=== PATIENT | female | born 1950 | race Caucasian/White ===

== ENCOUNTER 2018-12-15 15:00 | Inpatient (IN) | payer MEDICARE, MEDICAID ==
[~2018-12-15] VITALS: Ht 162.6 cm; Wt 81.6 kg
[~2018-12-15 15:00] MED LIST: ADDERALL PO; ADDERALL XR 3030 MG PO; AMBIEN 10 MG TA10 MG PO; AMBIEN CR12.5 MG PO; AMBIEN PO; ARTHROTEC 50 E1 EACH PO; ASPIRIN PO; ASPIRIN325 PO; ATIVAN1 MG PO; AVANDAMET 2 MG1 EAC1 PO; BENADRYL25 MG PO; BUPROPION XL150 MG PO; CALCIUM; CALCIUM +D & M1 EACH PO; COLACE100 MG PO; CYMBALTA PO; CYMBALTA60 MG PO; DIABETA 5MG TABL5 MG PO; DIABETA PO; DIPHENHYDRAMINE25 M3 PO; FOLIC ACID PO; FOLIC ACID0.8 MG PO; GLUCOPHAGE500 MG PO; HYDROCODON-ACE1 EAC4 PO; HYDROCODONE-AP1 EAC1 PO; HYDROCODONE-AP1 EAC6 PO; INSULIN SYRING; LANTUS100 UNIT/M SUBQ; LIDODERM 5%1 PATC1 TRANSDERM; LISINOPRIL10 MG PO; LUTEIN20 MG PO; MAGNESIUM-VIT1 EACH PO; MEDROLDOSEPACK PO; MIRALAX17 GM PO; MULTIVITAMINS PO; NORCO 5-325 TA1 EACH PO; NORVASC10 MG PO; NOVOLOG100 UNIT/1 SUBQ; OMEPRAZOLE PO; OXYCODONE HCL 55 MG PO; PRILOSEC 20 MG20 MG PO; PRINIVIL20 MG PO; PROZAC; VITAMIN B-12500 MCG PO; VITAMIN B12 PO; VITAMIN D1000 UNI1 PO; WELLBUTRIN; WELLBUTRIN SR150 MG PO; XARELTO10 MG PO; ZOCOR 20 MG TAB20 M1 PO
[2018-12-15 15:01] VITALS: BP 165/78
[2018-12-15] MEDS ORDERED: JANUVIA100 MG PO (15:09)
--- NOTE | 2018-12-15 15:13 | NUR ---
PT REPORTS THAT SHE DOES NOT WANT TO BE INTUBATED, NOR DOES SHE WANT TO BE RESUSCITATED IF IT COMES TO THAT DURING HER STAY.
--- NOTE | 2018-12-15 15:29 | NUR ---
RADIOLOGY AT BEDSIDE TAKING CHEST XRAY AT 1525. ELSA, FROM INFUSION IN ROOM AT THIS TIME ATTEMPTING TO START IV ON PT.
[2018-12-15 15:31] LABS: HEMATOCRIT 37.4 % (37.0-47.0); HEMOGLOBIN 12.6 gm/dL (12.0-15.0); MCH 30.6 pg (26.0-34.0); MCHC 33.7 g/dL (28.0-37.0); MCV 90.8 fL (80.0-100.0); MPV 12.8 fl. (7.2-11.1); NUCLEATED RBCS 0 /100WBC; PLATELET COUNT* 167 thou/uL (150-400); RBC 4.12 mil/uL (4.20-5.00); RDW-CV 13.5 % (10.5-14.5); WBC 14.1 thou/uL (4.0-11.0)
[2018-12-15 15:48] LABS: ANION GAP 11 mmol/L (7-16); BUN 33 mg/dL (7-18); CALCIUM 9.1 mg/dL (8.5-10.1); CHLORIDE 102 mmol/L (98-107); CO2 27 mmol/L (21-32); CREATININE 1.6 mg/dL (0.6-1.3); GLUCOSE 279 mg/dL (70-99); POTASSIUM 4.1 mmol/L (3.5-5.1); SODIUM 140 mmol/L (136-145); TROPONIN-I LEVEL <0.06 ng/mL (<0.06)
[2018-12-15 15:50] LABS: ALBUMIN 3.6 g/dL (3.4-5.0); ALKALINE PHOSPHATASE 100 U/L (46-116); LIPASE 47 U/L (73-393); MAGNESIUM 1.7 mg/dL (1.8-2.4); NT-PRO BRAIN NAT PEPTIDE 219 pg/mL (<300); SGOT 12 U/L (15-37); SGPT 16 U/L (30-65); TOTAL BILIRUBIN 0.7 mg/dL (<0.1-1.0); TOTAL PROTEIN 8.5 g/dL (6.4-8.2)
[2018-12-15 16:02] LABS: ABSOLUTE LYMPHOCYTES 0.7 thou/uL (0.8-5.3); ABSOLUTE NEUTROPHILS 13.4 thou/uL (1.6-8.1); PLATELET ESTIMATE ADEQUATE
--- NOTE | 2018-12-15 18:41 | NUR ---
PT NOT IN ROOM WHEN NURSE WENT TO CHECK ON PT. STAFF STATES SHE WAS TAKEN TO RADIOLOGY FOR TEST.
--- NOTE | 2018-12-15 19:01 | NUR ---
SHIFT REPORT GIVEN TO NENITA BAILEY WHO IS TO ASSUME PT CARE AT THIS TIME.
[2018-12-15 19:39] VITALS: BP 146/71
[2018-12-15 21:00] VITALS: BP 136/52
[2018-12-16] VITALS: BP 155/73
[2018-12-16 04:33] VITALS: BP 124/64
--- NOTE | 2018-12-16 05:16 | NUR ---
RECEIVED REPORT FROM ED RN. PT TRANSFERRED TO 210. PT A&OX4. VSS. DIRECTOR OF PUBLIC SAFETY IN PLACE. ADMISSION HISTORY & PHYSICAL ASSESSMENT COMPLETED AND CHART. PT TRACING ST/PAC ON TELE. PT O2 SAT 88-89%- HOOKED TO O2 AT 2L NC. PT COMPLAINED OF GENERALIZED PAIN- PAIN MEDS GIVEN PER NOV. PT REQUESTED FOR A SLEEPING PILL- DR MCCOY INFORMED WITH NEW ORDER. CALL LIGHT WITHIN REACH.
[2018-12-16 05:23] LABS: ABSOLUTE LYMPHOCYTES 1.3 thou/uL (0.8-5.3); ABSOLUTE MONOCYTES 0.5 thou/uL (0.0-1.2); BASOPHILS 0.3 %; EOSINOPHILS 0.1 %; HEMATOCRIT 32.7 % (37.0-47.0); HEMOGLOBIN 10.7 gm/dL (12.0-15.0); LYMPHOCYTES 19.2 %; MCH 29.8 pg (26.0-34.0); MCHC 32.8 g/dL (28.0-37.0); MONOCYTES 7.2 %; NUCLEATED RBCS 0 /100WBC; PLATELET COUNT* 136 thou/uL (150-400); POLYS 73.2 %; RBC 3.59 mil/uL (4.20-5.00); RDW-CV 13.6 % (10.5-14.5); WBC 6.8 thou/uL (4.0-11.0)
[2018-12-16 05:52] LABS: CALCIUM 8.4 mg/dL (8.5-10.1); CREATININE 1.3 mg/dL (0.6-1.3); POTASSIUM 3.4 mmol/L (3.5-5.1)
[2018-12-16 08:40] VITALS: BP 109/52
[2018-12-16 10:09] LABS: INFLUENZA A ANTIGEN None Detected (None Detect); INFLUENZA B ANTIGEN None Detected (None Detect)
--- NOTE | 2018-12-16 10:38 | EKG ---
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: DOUGLAS : 1950 Requested By: Main [place] Order Number: [id number] MD: Ortiz Avila Measurements Intervals [place] Rate: 99 P: 31 [place]: 161 QRS: -29 QRSD: 96 T: 84 QT: 356 QTc: 457 Interpretive Statements Sinus tachycardia Multiple premature complexes, vent & supraven Borderline left axis deviation Low voltage, precordial leads Consider anterior infarct Compared to ECG 01/07/2016 19:42:47 Low QRS voltage now present Electronically Signed On 12-16-2018 10:38:23 CDT by Ortiz Avila [email or web address] <ELECTRONICALLY SIGNED> By: Ortiz Avila MD, FAC 12/16/18 1038 1511 1511 Ortiz Avila MD, [facility] /EPI
[2018-12-16 11:22] LABS: MAGNESIUM 1.8 mg/dL (1.8-2.4); POTASSIUM 3.8 mmol/L (3.5-5.1)
--- NOTE | 2018-12-16 12:00 | NUR ---
Pt was sound asleep when CM went to assess, will f/u later
[2018-12-16 12:19] VITALS: BP 120/58
[2018-12-16 12:55] LABS: URINE BILIRUBIN NEGATIVE (Negative); URINE BLOOD TRACE (Negative); URINE CLARITY CLEAR; URINE COLOR YELLOW; URINE GLUCOSE-RANDOM NEGATIVE (Negative); URINE KETONES NEGATIVE (Negative); URINE LEUKOCYTES-REFLEX 1+ (Negative); URINE NITRITE-REFLEX NEGATIVE (Negative); URINE PROTEIN TRACE (Negative); URINE UROBILINOGEN 0.2 E.U./dl (0.2-1.0)
[2018-12-16 13:02] LABS: CASTS None Seen /LPF (None Seen); CRYSTALS None Seen /LPF (None Seen); MUCUS 0-3 Light strn/LPF (None Seen); SQUAMOUS 0-3 Few /LPF (0-3); URINE RBC 0-2 Rare /HPF (0-2); URINE WBC-REFLEX 6-15 Few /HPF (0-5)
--- NOTE | 2018-12-16 13:36 | NUR ---
Pt out of room when CM went to assess, will attempt to assess later
[2018-12-16 15:15] LABS: AMP/METHAMP POSITIVE (Negative); BARBITURATES Negative (Negative); BENZODIAZEPINES POSITIVE (Negative); COCAINE Negative (Negative); METHADONE Negative (Negative); OPIATES POSITIVE (Negative); PCP Negative (Negative); THC Negative (Negative)
--- NOTE | 2018-12-16 15:44 | CARDNUC ---
[place] [address] CARDIAC NUCLEAR IMAGING REPORT Name: VIKRAM ELIAS Room: [address] IN [facility]#: [id number] Admission: 12/15/18 Attend Phys: Filemon Gonzales, Discharge: Date of : 50 Date of Service: 12/16/18 1544 Report #: [id number] THIS REPORT FOR: //name// APPROVED REPORT Imaging Protocol: Rest Tc-99m/Stress Tc-99m 1 day Study performed: 12/16/2018 10:07:00 Indication: Chest pain Patient Location: In-Patient Room #: 210 Stress Tech: Ivory Magallon Stress Nurse: Michelle Adams RN NM Tech:JIE Neely Ht: 5 ft 4 in Wt: 180 lbs BSA: 1.87 m2 BMI: 30.89 Medical History Medical History: Angina, Diabetes, Fatigue, HTN, Hyperlipidemia, Obesity , SOB, Stroke/TIA, DVT's. Medications: Lovenox, Insulin, Amlodipine, ASA 325 Mg, Hydralazine, Nitrostat, K-Dur, Mag-Ox, Home meds- Zocor, Lisinopril. Allergies: Tape, Hydrocodone, Penicillins, Morphine, Ibuprofen. Cardiac Risk Factors: Age, DM, FHX of CAD, HTN, Hyperlipidemia, SOB, Obesity. Previous Cardiac Procedures: None Pretest Chest Pain Characteristics: No chest pain Exercise History: Sedentary Physical Disabilities: weakness, fatigue, O2 NC 2L. Meds Held (24 hrs): Nitrostat. Resting Data Rest SPECT myocardial perfusion imaging was performed in supine position 30 minutes following the intravenous injection of 11.8 mCi of Tc-99m Sestamibi. Time of rest injection: 1200 Date: 12/16/2018 The images were gated to evaluate regional wall motion and calculate left ventricular ejection fraction. Administration Route: IV Administration Site: Right AC Pharmacologic Stress Pharmacologic stress test was performed by injecting Regadenoson 0.4 [place] [address] CARDIAC NUCLEAR IMAGING REPORT Name: VIKRAM ELIAS Room: [address]#: [id number] Admission: 12/15/18 Attend Phys: Filemon Gonzales, Discharge: Date of : 50 Date of Service: 12/16/18 1544 Report #: [id number] mg IV push over 10-15 seconds immediately followed by the intravenous injection of 34.9 mCi of Tc-99m Sestamibi. Time of stress injection: 1405 Administration Route: IV Administration Site: Right AC Gated Stress SPECT was performed 40 minutes after stress injection. The images were gated to evaluate regional wall motion and calculate left ventricular ejection fraction. Stress only was performed in the Supine position. Stress Test Details Stress Test: Pharmacologic stress testing performed using 0.4 mg of regadenoson per 5 mL given IV over 10 seconds. Reason for pharmacologic stress test: O2 NC 2L, weakness, fatigue.. HR Max Heart Rate (APMHR): 152 bpm Resting HR: 74 bpm Target HR (85% APMHR): 129 bpm Max HR Achieved: 87 bpm % of APMHR: 57 Recovery HR: 79 bpm BP Resting BP: 105/53 mmHg Max BP: 105/61 mmHg Recovery BP: 121/63 mmHg ECG Resting ECG: Sinus Rhythm Stress ECG: Sinus Rhythm ST Change: None Arrhythmia: None Recovery ECG: Sinus Rhythm Recovery ST Change: None Recovery Arrhythmia: None Clinical Reason for Termination: Completed protocol Stress Symptoms: Chest and stomach discomfort, fatigue, Patient had to lay down during test r/t overall weakness. Exercise duration: 0 min 0 sec Exercise capacity: 1.00 METs The patient tolerated Lexiscan infusion without significant cardiac symptoms[place] [address] CARDIAC NUCLEAR IMAGING REPORT Name: VIKRAM ELIAS Room: [address]#: [id number] Admission: 12/15/18 Attend Phys: Filemon Gonzales, Discharge: Date of : 50 Date of Service: 12/16/18 1544 Report #: [id number] 68 year old female inpatient presented not feeling well, very weak and fatigued. Reports recent HX of CP. Patient on NC O2 2L. Patient was unable to sit up for time needed for test, resulting in her laying down and moving feet and hands with Lexiscan. Test tolerated. Recovery unremarkable with PO caffeine. Patient escorted via wheelchair by staff to Nuclear Medicine for images. Patient stable with no complaints at that time. Stress ECG Conclusion The baseline 12-lead EKG showed sinus rhythm without significant ST or T wave abnormality. EKGs obtained during and post Lexiscan infusion showed sinus rhythm with no significant ST or T wave changes when compared baseline. There were no stress-induced arrhythmias. Study Quality Study: Good Artifact: Mild Diaphragmatic artifact and apical thinning artifact Perfusion Perfusion images show a apical defect in the resting images that is almost completely reversed with post stress imaging. There is also a defect involving the basal to mid inferior wall on resting images that completely resolves on post stress images suggesting diaphragmatic attenuation artifact. No other significant fixed or reversible defects are identified. Wall Motion Normal left ventricular wall motion. Nuclear Conclusion ECG Findings: negative for ischemia Clinical Findings: negative for ischemia Nuclear Findings: negative for ischemia Exercise Capacity: not assessed Left Ventricular Function: normal Risk Study: low Defects of the apex are due to apical thinning artifact. There is also some diaphragmatic attenuation artifact noted on resting images that resolves with post stress imaging. There were no defects to suggest infarct or ischemia. Left ventricular systolic function appears normal. This is a low risk study. <Conclusion> The baseline 12-lead EKG showed sinus [place] [address] CARDIAC NUCLEAR IMAGING REPORT Name: VIKRAM ELIAS Room: [address]#: [id number] Admission: 12/15/18 Attend Phys: Filemon Gonzales, Discharge: Date of : 50 Date of Service: 12/16/18 154 Report #: [id number] or T wave abnormality. EKGs obtained during and post Lexiscan infusion showed sinus rhythm with no significant ST or T wave changes when compared baseline. There were no stress-induced arrhythmias. <ELECTRONICALLY SIGNED> By: Sheng Casillas MD, FACC 12/16/18 1544 43 154 Sheng Casillas MD, FACC /INF
[2018-12-16 16:50] VITALS: BP 117/55
--- NOTE | 2018-12-16 17:39 | NUR ---
ASSUMED CARE OF PT AROUND 0730 THIS AM. REFER TO ASSESSMENT. PT HAD STRESS TEST COMPLETED THIS SHIFT. UNABLE TO COMPLETE ABDOMINAL US D/T PT GIVEN ORAL INTAKE POST STRESS TEST. ABDOMINAL US RESCHEDULED FOR TOMORROW. MAG REPLACED ORDERED THIS SHIFT. TELE SR W/ PAC'S. PT CONTINUES ON 2L /. PT HAS HAD MULTIPLE LOOSE STOOLS THIS SHIFT. NO OTHER CONCERNS AT THIS TIME. CLWR. WCTM.
[2018-12-16 20:00] VITALS: BP 130/56
[2018-12-17] VITALS: BP 128/53
[2018-12-17 04:44] VITALS: BP 138/75
--- NOTE | 2018-12-17 06:04 | NUR ---
ASSUMED CARE OF PT AFTER REPORT AT 1930. PT A&OX4. VSS. PHSYCAL ASSESSMENT COMPLETED AND CHARTED. PT ON RA WITH 98% O2 SAT. PT TRACING SR PAC ON TELE. PT UP WITH 1 ASSIST. PT COMPLAINED OF GENERALIZED PAIN- PAIN MEDS GIVEN PER NOV. INSTRUCTED PT ON NPO POST MIDNIGHT FOR ABDOMINAL US TODAY. COMMUNICATES UNDERSTANDING. PT DENIES SOA. CALL LIGHT WITHIN REACH.
[2018-12-17 08:33] VITALS: BP 137/65
--- NOTE | 2018-12-17 09:13 | CON ---
[address] [address] CONSULTATION Name: VIKRAM ELIAS Room: [address] IN .R.#: [id number] Admission: 12/15/18 Attend Phys: Filemon Gonzales MD Discharge: Date of : 50 Report #: [id number] THIS REPORT FOR: //name// CC: Filemon Webb INDICATION: Chest pain. HISTORY OF PRESENT ILLNESS: The patient is a very pleasant 68-year-old white female with no prior cardiac history. She has cardiac risk factors including hypertension, dyslipidemia, type 2 diabetes mellitus and family history of coronary artery disease. She denies any history of smoking. Yesterday afternoon, she developed nausea, diarrhea and midsternal chest discomfort radiating through to the back and to her upper chest. She was not exerting herself at that time, although she states the pain was worse with exertion. She had some nausea, but no vomiting. She denied diaphoresis. The pain persisted for a prolonged period of time. She was seen in the Emergency Room and admitted for further treatment. At the time of my interview today, she is pain-free. EKG shows sinus rhythm without acute ST or T-wave abnormality. PAST MEDICAL HISTORY: 1. Hypertension. 2. Type 2 diabetes mellitus. 3. Hyperlipidemia. 4. Arthritis. 5. GERD. 6. Sarcoidosis. 7. History of mini strokes. 8. History of deep venous thrombosis remotely. 9. Macular degeneration. 10. Gout. PAST SURGICAL HISTORY: 1. Tonsillectomy. 2. Right total hip replacement. 3. Appendectomy. 4. Previous back surgery. 5. Laser surgery for retinopathy. 6. History of miscarriages. FAMILY HISTORY: Positive for coronary artery disease. SOCIAL HISTORY: The patient is a lifelong nonsmoker. [place] [address] CONSULTATION Name: LAKSHMI ELIASNDA Gaby Room: [address]#: [id number] Admission: 12/15/18 Attend Phys: Filemon Gonzales MD Discharge: Date of : 50 Report #: [id number] ALLERGIES: IBUPROFEN, MORPHINE, PENICILLIN, TAPE, HYDROCODONE AND JUTE ROPE. HOME MEDICATIONS: Cymbalta 60 mg 2 tablets daily, Wellbutrin SR 450 mg daily, folic acid 800 mcg at night, Lantus 45 units at bedtime, Januvia 100 mg daily, Benadryl 25 mg q. 6 hours p.r.n., magnesium, vitamin D3, turmeric capsules 1 daily, Ativan 1 mg q. 6 hours p.r.n., MiraLax 17 grams daily, Ambien CR 12.5 mg at bedtime p.r.n., amlodipine 10 mg daily, Adderall XR 30 mg capsules two tablets daily, omeprazole 20 mg daily, Zocor 20 mg at bedtime, aspirin 325 mg daily, oxycodone IR 5 mg 1-3 tablets q. 3 hours p.r.n., lisinopril 20 mg daily. PHYSICAL EXAMINATION: VITAL SIGNS: Blood pressure 109/52, pulse 85 and regular. GENERAL: This is a moderately obese white female who is in no distress. Mood and affect appropriate. HEENT: Extraocular muscles intact. Mucous membranes are moist. NECK: Examination of the neck shows no jugular venous distention. There are no carotid bruits. CHEST: Reveals clear lung gómez without wheezes or rales. CARDIAC: Reveals regular rhythm, normal S1 and S2. I do not appreciate gallop or murmur. ABDOMEN: Reveals a protuberant abdomen, soft and nontender. Bowel sounds present. EXTREMITIES: Show no edema. SKIN: Warm and dry. A 12-lead EKG shows sinus rhythm with occasional premature atrial contraction. No acute ST or T-wave abnormalities noted. LABORATORY DATA: Reviewed. Troponins are less than 0.06 on 3 separate occasions. IMPRESSION AND RECOMMENDATIONS: 1. Chest pain with features to suggest possible unstable angina. The patient certainly has multiple risk factors for coronary artery disease. We will proceed with noninvasive stress testing at this time. Further coronary intervention will be pending the results of that study. 2. Hypertension. Blood pressure adequately controlled on home regimen. 3. History of hyperlipidemia. Continue Zocor 20 mg daily. 4. Type 2 diabetes mellitus per hospitalist. <ELECTRONICALLY SIGNED> By: Sheng Casillas MD, FACC 12/17/18 0913 1012 [id number] Casillas MD, FACC /nt
[2018-12-17 09:43] LABS: ABSOLUTE BASOPHILS 0.1 thou/uL (0.0-0.2); ABSOLUTE EOSINOPHILS 0.2 thou/uL (0.0-0.7); ABSOLUTE LYMPHOCYTES 2.5 thou/uL (0.8-5.3); ABSOLUTE MONOCYTES 0.8 thou/uL (0.0-1.2); EOSINOPHILS 3.3 %; HEMATOCRIT 34.2 % (37.0-47.0); HEMOGLOBIN 11.4 gm/dL (12.0-15.0); LYMPHOCYTES 33.1 %; MCH 30.5 pg (26.0-34.0); MCHC 33.4 g/dL (28.0-37.0); MCV 91.4 fL (80.0-100.0); MONOCYTES 10.2 %; MPV 12.3 fl. (7.2-11.1); NUCLEATED RBCS 0 /100WBC; PLATELET COUNT* 118 thou/uL (150-400); POLYS 52.4 %; RBC 3.74 mil/uL (4.20-5.00); RDW-CV 13.3 % (10.5-14.5); WBC 7.6 thou/uL (4.0-11.0)
[2018-12-17 10:05] LABS: CALCIUM 8.6 mg/dL (8.5-10.1); CREATININE 1.3 mg/dL (0.6-1.3); POTASSIUM 3.9 mmol/L (3.5-5.1); TOTAL BILIRUBIN 0.2 mg/dL (<0.1-1.0)
--- NOTE | 2018-12-17 10:47 | NUR ---
Pt is A&O. Resides at home alone. Independent with ADLs. Pt uses a walker for mobility. Hx of [facility]. Hx of skilled at [facility]. Pt discharging to home today with [facility], CM faxed referral. Family will transport.
[2018-12-17] MEDS ORDERED: SENNA S TABLET1 EACH PO (10:57)
[2018-12-17] MEDS ORDERED: FLAGYL500 M1 PO (10:58)
[2018-12-17 11:21] VITALS: BP 137/65
[2018-12-17 11:24] VITALS: BP 137/65
[2018-12-17 11:33] VITALS: BP 132/57
--- NOTE | 2018-12-17 12:06 | NUR ---
ASSUMED CARE OF PATIENT AROUND 0730 THIS AM. REFER TO ASSESSMENT. PT COMPLETED US ABDOMEN THIS AM. PT REPORTS NO LOOSE STOOLS OVERNIGHT OR THIS AM. PT GIVEN DC ORDERS. WENT OVER DC INSTRUCTIONS WITH PT AND VERBALIZES UNDERSTANDING. PT GIVEN TWO SCRIPTS. NO OTHER CONCERNS AT THIS TIME. CLWR. WCTM.
--- NOTE | 2018-12-17 16:54 | NUR ---
PT. DISCHARGED TO HOME PRIOR TO O.T. EVAL. PLEASE ORDER FURTHER O.T. SERVICES IF NEEDED.
== END 2018-12-17 13:35 | disposition home health service (06) | DRG 871 ==
LOC: M.ERS 15:00 → M.TBA-ER 16:56 → M.2W 16:56
PROVIDERS: Emergency Medicine Emergency Medical Services; Family Medicine; ADMIT Internal Medicine
DX: A41.89 Other specified sepsis (principal); N17.0 Acute kidney failure with tubular necrosis; A08.4 Viral intestinal infection, unspecified; E78.5 Hyperlipidemia, unspecified; F32.9 Major depressive disorder, single episode, unspecified; M19.90 Unspecified osteoarthritis, unspecified site; K21.9 Gastro-esophageal reflux disease without esophagitis; M10.9 Gout, unspecified; H35.30 Unspecified macular degeneration; Z96.641 Presence of right artificial hip joint; F41.9 Anxiety disorder, unspecified; G89.29 Other chronic pain; D86.9 Sarcoidosis, unspecified; N18.3 Chronic kidney disease, stage 3 (moderate); E11.22 Type 2 diabetes mellitus with diabetic chronic kidney disease; K80.20 Calculus of gallbladder without cholecystitis without obstruction; I12.9 Hypertensive chronic kidney disease with stage 1 through stage 4 chronic kidney disease, or unspecified chronic kidney disease; E11.319 Type 2 diabetes mellitus with unspecified diabetic retinopathy without macular edema; Z90.49 Acquired absence of other specified parts of digestive tract; Z86.73 Personal history of transient ischemic attack (TIA), and cerebral infarction without residual deficits; Z86.718 Personal history of other venous thrombosis and embolism; Z79.4 Long term (current) use of insulin; Z79.82 Long term (current) use of aspirin; Z79.899 Other long term (current) drug therapy; Z88.5 Allergy status to narcotic agent; Z88.0 Allergy status to penicillin; Z88.8 Allergy status to other drugs, medicaments and biological substances; Z91.048 Other nonmedicinal substance allergy status; Z82.49 Family history of ischemic heart disease and other diseases of the circulatory system

== ENCOUNTER 2019-04-08 10:54 | Emergency (ER) | payer MEDICARE, BC, OTHER, MEDICAID ==
[~2019-04-08] VITALS: Ht 162.6 cm; Wt 106.3 kg
[~2019-04-08 10:54] MED LIST changes: +FLAGYL500 M1 PO; +JANUVIA100 MG PO; +SENNA S TABLET1 EACH PO
[2019-04-08 11:05] VITALS: BP 188/92
[2019-04-08 11:13] LABS: URINE BILIRUBIN NEGATIVE (Negative); URINE BLOOD NEGATIVE (Negative); URINE CLARITY CLEAR; URINE COLOR YELLOW; URINE GLUCOSE-RANDOM 2+ (Negative); URINE KETONES NEGATIVE (Negative); URINE LEUKOCYTES-REFLEX NEGATIVE (Negative); URINE NITRITE-REFLEX NEGATIVE (Negative); URINE PROTEIN NEGATIVE (Negative); URINE UROBILINOGEN 0.2 E.U./dl (0.2-1.0)
[2019-04-08 11:22] LABS: ABSOLUTE BASOPHILS 0.1 thou/uL (0.0-0.2); ABSOLUTE EOSINOPHILS 0.2 thou/uL (0.0-0.7); ABSOLUTE LYMPHOCYTES 1.8 thou/uL (0.8-5.3); ABSOLUTE MONOCYTES 0.7 thou/uL (0.0-1.2); ABSOLUTE NEUTROPHILS 5.5 thou/uL (1.6-8.1); BASOPHILS 0.9 %; EOSINOPHILS 2.1 %; HEMATOCRIT 31.9 % (37.0-47.0); HEMOGLOBIN 10.5 gm/dL (12.0-15.0); LYMPHOCYTES 21.6 %; MCH 30.2 pg (26.0-34.0); MCV 91.6 fL (80.0-100.0); MONOCYTES 8.4 %; MPV 12.2 fl. (7.2-11.1); NUCLEATED RBCS 0 /100WBC; PLATELET COUNT* 172 thou/uL (150-400); RBC 3.48 mil/uL (4.20-5.00); RDW-CV 14.2 % (10.5-14.5); WBC 8.2 thou/uL (4.0-11.0)
[2019-04-08] MEDS ORDERED: PRILOSEC OTC20 MG PO (11:22)
[2019-04-08] MEDS ORDERED: OCUVITE ADULT1 EAC1 PO (11:23)
[2019-04-08] MEDS ORDERED: LUTEIN20 M1 PO (11:24)
[2019-04-08] MEDS ORDERED: AMPHETAMINE SAL30 MG PO (11:25)
[2019-04-08] MEDS ORDERED: APAP650 PO (11:26)
[2019-04-08 11:35] LABS: APTT 29.4 Seconds (25.0-31.3)
[2019-04-08 11:36] LABS: ANION GAP 9 mmol/L (7-16); BUN 15 mg/dL (7-18); CALCIUM 9.3 mg/dL (8.5-10.1); CHLORIDE 104 mmol/L (98-107); CO2 27 mmol/L (21-32); CREATININE 1.3 mg/dL (0.6-1.3); GLUCOSE 89 mg/dL (70-99); SODIUM 140 mmol/L (136-145)
[2019-04-08 11:46] LABS: ALBUMIN 3.4 g/dL (3.4-5.0); ALKALINE PHOSPHATASE 165 U/L (46-116); NT-PRO BRAIN NAT PEPTIDE 416 pg/mL (<300); SGOT 28 U/L (15-37); SGPT 38 U/L (30-65); TOTAL BILIRUBIN 0.5 mg/dL (<0.1-1.0); TROPONIN-I LEVEL <0.06 ng/mL (<0.06)
--- NOTE | 2019-04-08 16:00 | NUR ---
PT STATES UNDERSTANDING THAT SHE IS NOT BEING ADMITTED TO HOSPITAL. PT IS CALLING FOR A RIDE HOME. PT DID DRIVE HERSELF TO THE ER. PT UNDERSTANDS THAT IF WE GIVE HER PAIN MEDICATION (WHICH SHE IS ASKING FOR) SHE WILL NEED A RIDE
--- NOTE | 2019-04-08 16:37 | NUR ---
PT STATES SHE HAS A RIDE HOME AND THEY ARE ON THEIR WAY. PT HAS ASKED TO GO TO RESTROOM BEFORE LEAVING ER. PT WAS HELPED TO GET DRESSED BY TECH AND IS BEING HELPED OUT BY TECH. PT IS AWAKE AND ALERT. PT REFUSED TO USE ADULT PANTS OFFERED TO HER SEVERAL TIMES. PT HELPED ALL THE WAY TO HER RIDES CAR RN IS CHARTING THIS NOTE.
[2019-04-08 16:40] VITALS: BP 148/67
--- NOTE | 2019-04-08 17:21 | EKG ---
[place] [address] ELECTROCARDIOGRAM REPORT Name: VIKRAM ELIAS Room: [facility]#: [id number] Admission: 04/08/19 Attend Phys: Discharge: Date of : 50 Report #: [id number] THIS REPORT FOR: //name// [facility] ED Test Date: 2019-04-08 Test Time: 11:22:13 Pat Name: VIKRAM ELIAS Department: Room: [facility] Gender: F Director Mobile: : 1950 Requested By: Jasvir العلي Order Number: [id number] MD: Corey Aranda Measurements Intervals [place] Rate: 88 P: 22 MD: 157 QRS: -27 QRSD: 91 T: 60 QT: 397 QTc: 481 Interpretive Statements Sinus rhythm Borderline left axis deviation Compared to ECG 12/15/2018 15:11:15 Sinus tachycardia no longer present Myocardial infarct finding no longer present Electronically Signed On 04-08-2019 17:20:59 CDT by Corey Aranda [email or web address] <ELECTRONICALLY SIGNED> By: Corey Aranda MD, [facility] 04/08/19 1720 1122 112 Corey Aranda MD, FAC /EPI
== END 2019-04-08 16:42 | disposition home or self-care (01) ==
LOC: M.ERS 10:54 → M.TBA-ER 12:44 → M.ERS 16:42
PROVIDERS: Family Medicine
DX: R60.0 Localized edema (principal); F32.9 Major depressive disorder, single episode, unspecified; E78.5 Hyperlipidemia, unspecified; M19.90 Unspecified osteoarthritis, unspecified site; E11.9 Type 2 diabetes mellitus without complications; I10 Essential (primary) hypertension; K21.9 Gastro-esophageal reflux disease without esophagitis; M10.9 Gout, unspecified; Z88.0 Allergy status to penicillin; Z88.5 Allergy status to narcotic agent; Z88.6 Allergy status to analgesic agent

== ENCOUNTER 2019-09-23 15:52 | Inpatient (IN) | payer MEDICARE, BC ==
[~2019-09-23] VITALS: Ht 162.6 cm; Wt 99.3 kg
[~2019-09-23 15:52] MED LIST changes: +AMPHETAMINE SAL30 MG PO; +APAP650 PO; +LISINOPRIL40 MG PO; +LUTEIN20 M1 PO; +OCUVITE ADULT1 EAC1 PO; +PRILOSEC OTC20 MG PO; -PRINIVIL20 MG PO
[2019-09-23 16:00] VITALS: BP 182/90
[2019-09-23 16:14] LABS: ABSOLUTE BASOPHILS 0.1 thou/uL (0.0-0.2); ABSOLUTE EOSINOPHILS 0.2 thou/uL (0.0-0.7); ABSOLUTE LYMPHOCYTES 2.2 thou/uL (0.8-5.3); ABSOLUTE MONOCYTES 0.7 thou/uL (0.0-1.2); ABSOLUTE NEUTROPHILS 7.3 thou/uL (1.6-8.1); BASOPHILS 1.2 %; EOSINOPHILS 1.5 %; HEMOGLOBIN 12.7 gm/dL (12.0-15.0); LYMPHOCYTES 21.3 %; MCH 31.7 pg (26.0-34.0); MCHC 34.4 g/dL (28.0-37.0); MCV 92.2 fL (80.0-100.0); MONOCYTES 6.6 %; MPV 12.4 fl. (7.2-11.1); NUCLEATED RBCS 0 /100WBC; PLATELET COUNT* 170 thou/uL (150-400); POLYS 69.4 %; RBC 4.01 mil/uL (4.20-5.00); WBC 10.5 thou/uL (4.0-11.0)
[2019-09-23 16:22] LABS: CALCIUM 9.5 mg/dL (8.5-10.1); CREATININE 1.2 mg/dL (0.6-1.3)
[2019-09-23 21:37] VITALS: BP 135/63
[2019-09-23 22:11] VITALS: BP 182/90
[2019-09-23 22:12] VITALS: BP 127/62
--- NOTE | 2019-09-24 05:39 | NUR ---
PAIN IS STILL AN ISSUE. RECEIVING FENTANYL Q2 50 MCG AND ICE PACKS AND HOURLY RE-ADJUSTMENT OF PILLOWS AND POSITION. POTTER OUTPUT GOOD, ON BEDREST ALL NIGHT. ORTHO HAS BEEN CONSULTED AND SHE HAS BEEN NPO SINCE MIDNIGHT. LEFT WRIST IS SWOLLEN AND ELEVATED, ICE PACK APPLIED. PLAN IS FOR ORTHO TO DECIDE ON SURGERY POSSIBLE. WILL CONTINUE TO FOLLOW PLAN OF CARE.
[2019-09-24 07:40] VITALS: BP 156/75
[2019-09-24 09:02] LABS: PROTIME 10.5 Seconds (9.20-11.50)
--- NOTE | 2019-09-24 12:33 | EKG ---
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 : 1950 Requested By: Main [place] Order Number: [id number] MD: Corey Aranda Measurements Intervals [place] Rate: 82 P: 36 [place]: 160 QRS: -30 QRSD: 91 T: 54 QT: 410 QTc: 479 Interpretive Statements Sinus rhythm Left axis deviation Low voltage, precordial leads Abnormal R-wave progression, late transition Borderline prolonged QT interval Compared to ECG 04/08/2019 11:22:13 Low QRS voltage now present Electronically Signed On 09-24-2019 12:32:31 ASSOCIATE PROFESSOR OF [employer] MUSIC by Corey Aranda [email or web address] <ELECTRONICALLY SIGNED> By: Corey Aranda MD, [facility] 09/24/19 1232 1612 1612 Corey Aranda MD, [facility] /EPI
--- NOTE | 2019-09-24 14:00 | NUR ---
SPOKE WITH PT. SHE SAID SHE LIVES ALONE. IS NORMALLY INDEPENDENT. USES A WALKER FOR MOBILITY. [facility] HX OF [facility] HH AND [facility] FOR SNF. BRIEFLY DISCUSSED INPT.REHAB/SNF. IS TO HAVE SURGERY TOMORROW.
[2019-09-24 16:00] VITALS: BP 133/68
--- NOTE | 2019-09-24 18:29 | NUR ---
PT REMAINED ALERT AND ORIENTED. PAIN MEDS GIVEN ORDERED. PT IV INFILTRATED, ATTEMPED IV BUT UNSUCCESSFUL. ANOTHER NURSE WILL ATTEMPT IV. BEDREST MAINTAINED. FALL RISK PRECAUTIONS IN PLACE. HOURLY ROUNDING COMPLETED. WILL CONTINUE TO MONITOR.
[2019-09-25 03:56] LABS: CALCIUM 7.8 mg/dL (8.5-10.1); CREATININE 1.3 mg/dL (0.6-1.3); MAGNESIUM 1.5 mg/dL (1.8-2.4); POTASSIUM 3.5 mmol/L (3.5-5.1)
[2019-09-25 03:58] LABS: HEMATOCRIT 29.6 % (37.0-47.0); MCH 31.9 pg (26.0-34.0); MCV 93.9 fL (80.0-100.0); MPV 13.2 fl. (7.2-11.1); RBC 3.15 mil/uL (4.20-5.00); RDW-CV 14.2 % (10.5-14.5); WBC 10.8 thou/uL (4.0-11.0)
[2019-09-25 04:00] LABS: HEMOGLOBIN 10.1 gm/dL (12.0-15.0)
--- NOTE | 2019-09-25 06:10 | NUR ---
PATIENT HAS SLEPT WELL THROUGHOUT THE NIGHT. VSS ON RA. MEDICATIONS GIVEN ORDERED. PATIENT HAS REMAINED NPO SINCE MIDNIGHT. SPLINT TO LEFT LEG IS IN PLACE AND LEG ELEVATED WITH ICE BAG. IV IN LEFT FOREARM-D5 1/2 NS @ 75ML/HR. FALL PRECAUTIONS IN PLACE AND HOURLY ROUNDS MADE. PATIENT INSTRUCTED TO USE CALL LIGHT WHEN NEEDING ASSISTANCE. WILL CONTINUE WITH PLAN OF CARE AND NURSING TO MONITOR.
[2019-09-25 07:30] VITALS: BP 126/66
[2019-09-25 14:15] VITALS: BP 126/66
[2019-09-25 14:19] VITALS: BP 124/52
[2019-09-25 16:41] VITALS: BP 132/58
--- NOTE | 2019-09-25 17:18 | NUR ---
PT REMAINED ALERT AND ORIENTED AND DROWSY. PT NPO FOR SURGERY, SURGERY GOT DELAYED AND WILL BE TOMORROW. DIET RESTARTED, NPO AFTER MIDNIGHT. MEDS GIVEN ORDERED. FALL RISK PRECAUTIONS IN PLACE. HOURLY ROUNDING COMPLETED. WILL CONTINUE TO MONITOR.
--- NOTE | 2019-09-26 05:33 | NUR ---
MEDS GIVEN ORDERED. PAIN MANAGED WITH DILAUDID, TRAMADOL, OXY IR. LEFT LEG ELEVATED ON PILLOW. ICE PACKS IN PLACE. NPO AT MIDNIGHT FOR SURGERY. POTTER IN PLACE. HOURLY ROUNDS COMPLETED. WILL CONTINUE TO MONITOR.
[2019-09-26 13:00] VITALS: BP 158/84
[2019-09-26 16:00] VITALS: BP 158/96
[2019-09-26 20:00] VITALS: BP 154/83
[2019-09-26 23:52] VITALS: BP 125/64
[2019-09-27 04:00] VITALS: BP 118/57
--- NOTE | 2019-09-27 06:01 | NUR ---
PT ALERT ORIENTED. DILUDID FOR POST OP PAIN IN L LEG. SM WOUND VAC PUMP IN PLACE. ICE PACK TO L LEG INCISION. O2 AT 2 LITERS NC, CONT PULSE OX. POTTER WITH YELLOW. TO BE DC'D THIS AM.
[2019-09-27 06:03] LABS: HEMATOCRIT 26.9 % (37.0-47.0); HEMOGLOBIN 8.9 gm/dL (12.0-15.0)
[2019-09-27 07:35] VITALS: BP 107/62
--- NOTE | 2019-09-27 19:32 | NUR ---
ASSUMED PT CARE AT 1200, PT A/O X3, IS FORGETFUL AT TIMES, PT C/O SOME PAIN IN LEFT LEG, MEDS GIVEN PER MAR. PT ENCOURAGED TO START TAKING PO MEDS INSTEAD OF IV, PT AGREES WITH PLAN. FALL PRECAUTINS IN PLACE. LEFT LEG DRESSING COVERED WITH ELIAS WRAP AND PROVINA WOUND VAC IN PLACE NO DRAINAGE NOTED AT THIS TIME. APPITITE GOOD, PT CALLS APPROPRIALTY FOR MEEDS. USING BEDPAN, TURNING Q2 HR.
--- NOTE | 2019-09-27 19:55 | NUR ---
I HAVE REVIEWED AND AGREE WITH THE ASSESMENT OF ROBERT GUTIERRES ON 09/27/19
[2019-09-27 20:33] VITALS: BP 131/65
[2019-09-28 05:45] LABS: HEMATOCRIT 24.1 % (37.0-47.0)
--- NOTE | 2019-09-28 07:52 | NUR ---
Pt c/o pain to L leg, rates 8-9/10. Reports not much relief after pain meds. Placed ice pack afterward. Pt alert, oriented to self, situation, and place, but makes some unusual statements at times. She talked about her late and told one staff member he had a stroke at age 37; told another staff member that he (her ) was 40 years older than her. When asked where she was, she said that she was either at [employer] or at a friend's house. Pt also pressed the call button several times "by mistake." Pt eventually did fall asleep early this am. VSS. Will continue to monitor.
[2019-09-28 08:08] VITALS: BP 140/65
--- NOTE | 2019-09-28 16:54 | NUR ---
PT A&Ox4, DROWSY. IV PATENT. PAIN CONTROLLED WITH OXY IR. DENIED NAUSEA. TOLERATING DIET. DRESSING C/D/I. WOUND VAC IN PLACE, PATENT. STOOD WITH THERAPY. REFUSED 2ND THERAPY SESSION. FALL PRECAUTIONS IN PLACE. CALL LIGHT WITHIN REACH. WILL CONTINUE TO MONITOR.
[2019-09-28 17:13] VITALS: BP 114/61
[2019-09-28 20:55] VITALS: BP 136/74
--- NOTE | 2019-09-29 05:28 | NUR ---
PT A&O, DROWSY. VSS ON 2L. MEDS GIVEN ORDERED. PAIN CONTROLLED WITH OXY IR. DRESSING ON LT LEG C/D/I. WOUND VAC IN PLACE. PT REFUSED TO GET UP AND USED BED MUNSON. HOURLY ROUNDS COMPLETED. WILL CONTINUE TO MONITOR.
[2019-09-29 05:47] LABS: CALCIUM 7.7 mg/dL (8.5-10.1); CREATININE 1.3 mg/dL (0.6-1.3); MAGNESIUM 1.9 mg/dL (1.8-2.4); POTASSIUM 4.1 mmol/L (3.5-5.1)
[2019-09-29 05:52] LABS: HEMATOCRIT 23.7 % (37.0-47.0); HEMOGLOBIN 7.9 gm/dL (12.0-15.0); MCH 31.4 pg (26.0-34.0); MCHC 33.5 g/dL (28.0-37.0); MCV 93.8 fL (80.0-100.0); MPV 11.9 fl. (7.2-11.1); RBC 2.53 mil/uL (4.20-5.00); RDW-CV 13.8 % (10.5-14.5); WBC 10.2 thou/uL (4.0-11.0)
[2019-09-29 07:59] VITALS: BP 117/66
--- NOTE | 2019-09-29 15:48 | NUR ---
SPOKE WITH PT.JONATHAN. SHE WAS UP IN CHAIR. DISCUSSED DISCHARGE PLANNING WITH HER. SHE HAS NO ONE TO HELP HER AT HOME SO SHE WILL NEED TO GO TO A SNF. SHE CHOSE [facility] [place]. SHE SAID HER BROTHER LIVES [place]CROSS [place] [address] FROM IT AND HE WOULD BE ABLE TO WALK OVER TO VISIT HER. POSSIBLE DISCHARGE TOMORROW. FAXED REFERRAL TO [facility].
--- NOTE | 2019-09-29 18:25 | NUR ---
PT A&Ox4. VITALS STABLE. IV PATENT. PAIN CONTROLLED. DENIED NAUSEA. GOT UP TO CHAIR WITH THERAPY. ATTEMPT TO GET UP FROM CHAIR BACK TO BED WITH 3 PEOPLE AND COULD NOT TRANSFER PT, USED JERED LIFT TO GET PT FROM CHAIR BACK TO BED. PURE WICK IN PLACE FOR FREQUENT INCONTINENCE. TOELRATING DIET. DRESSING C/D/I. WOUND VAC IN PLACE, PATENT. FALL PRECAUTIONS IN PLACE. CALL LIGHT WITHIN REACH. WILL CONTINUE TO [facility].
[2019-09-29 19:50] VITALS: BP 146/68
--- NOTE | 2019-09-30 04:50 | NUR ---
MEDS GIVEN ORDERED. TYLENOL GIVEN FOR LOW GRADED TEMP. NO C/O PAIN. LEFT LEG ELEVATED ON PILLOW. PUREWICK IN PLACE. HOURLY ROUNDS, TURNS COMPLETED. WILL CONTINUE TO MONITOR.
[2019-09-30] MEDS ORDERED: ELIQUIS5 MG PO (08:44)
[2019-09-30] MEDS ORDERED: LIDOPATCH1 EACH TOP (08:44)
[2019-09-30] MEDS ORDERED: CYCLOBENZAPRINE5 MG PO (08:44)
[2019-09-30] MEDS ORDERED: AMBIEN CR12.5 MG PO (08:44)
[2019-09-30] MEDS ORDERED: OXYCODONE HCL 55 MG PO (08:44)
[2019-09-30] MEDS ORDERED: TRAMADOL 50 MG50 MG PO (08:44)
[2019-09-30] MEDS ORDERED: ATIVAN1 M1 PO (08:44)
--- NOTE | 2019-09-30 13:57 | NUR ---
Nutrition: Pt seen for LOS. Admitted with tibia ORIF. CHO controlled diet. RN stated pt not eating too well. Wt: 219#. Spoke with pt about appetite and nutrition. Pt stated she is eating normally for her, she's "never had a big appetite." She stated she grills foods at home, never deep fries. She had no nutrition questions or concerns. Labs, hx, Rx noted. Low risk.
--- NOTE | 2019-09-30 16:50 | NUR ---
[facility] SAID THEY CAN TAKE PT.FIRST THING IN THE AM TO A SKILLED BED. MAT/BRAD FROM [facility] WILL COME TO VISIT PT.SHORTLY TO TALK ABOUT SNF AND ANSWER ANY QUESTIONS. CM NOTIFIED [facility].
--- NOTE | 2019-09-30 16:52 | NUR ---
PATIENT ALERT AND ORIENTED X 4. VITAL SIGNS STABLE ON ROOM AIR. UP WITH MAX ASSIST TO BEDSIDE COMODE AND CHAIR. IV PATENT AND SALINE LOCKED. PAIN BEING MANAGED WITH PO MEDICATION. DENIES NAUSEA AT THIS TIME. TURNED AND REPOSITIONED EVERY TWO HOURS. FALL PRECAUTIONS IN PLACE AND BED ALARM ON. HOURLY ROUNDS MAINTAINED THROUGHOUT THE SHIFT. CALL LIGHT WITHIN REACH. NURSING WILL CONTINUE TO MONITOR.
[2019-09-30 20:25] VITALS: BP 131/60
[2019-10-01 04:13] LABS: HEMATOCRIT 23.3 % (37.0-47.0); HEMOGLOBIN 7.8 gm/dL (12.0-15.0); MCHC 33.3 g/dL (28.0-37.0); MCV 93.1 fL (80.0-100.0); RBC 2.51 mil/uL (4.20-5.00); RDW-CV 13.6 % (10.5-14.5); WBC 10.3 thou/uL (4.0-11.0)
[2019-10-01 04:45] LABS: CALCIUM 8.2 mg/dL (8.5-10.1); CREATININE 1.2 mg/dL (0.6-1.3); MAGNESIUM 1.8 mg/dL (1.8-2.4); POTASSIUM 4.2 mmol/L (3.5-5.1)
--- NOTE | 2019-10-01 04:45 | NUR ---
PT SLEEPING THROUGH THE NIGHT. VSS RA. MEDS GIVEN ORDERED. OXY IR GIVEN PER PT REQUEST AND PAIN WELL CONTROLLED. WOUND VAC, PUREWICK IN PLACE. WILL CONTINUE TO MONITOR.
[2019-10-01 07:26] VITALS: BP 131/60
[2019-10-01 07:30] VITALS: BP 142/71
[2019-10-01] MEDS ORDERED: ASPIRIN325 PO (07:33)
[2019-10-01 09:47] VITALS: BP 142/71
--- NOTE | 2019-10-01 10:30 | NUR ---
[facility] CAN ACCEPT PT.TODAY. SHE WILL SET UP [facility] FOR 1230. FAXED HER DISCHARE SUMMARY AND MED LIST. CHART COPIED TO GO WITH PT. NURSING TO CALL REPORT. PT.DOES NOT HAVE CLOTHES TO WEAR. SHE WILL CALL HER BROTHER TO BRING HER SOME TO [facility]. [facility]' LOOKED IN CLOTHES CLOSET. THEY DID NOT HAVE PTS SIZE. PT.WILL WEAR GOWN AND ROBE. RN TURNED AWAY WC VAN AT 1230 SHE HAD JUST BEEN GIVEN INSULIN AND HAD NOT EATEN. [facility] CALLED AND REARRANGED WC [facility] TO COME AT 1:30.
--- NOTE | 2019-10-01 13:05 | NUR ---
PATIENT DISCHARGED TO [facility] FOR [facility]F CARE. REPORT CALLED TO SARWAT AT FACILITY. BELONGINGS GATHERED, IV CATH DISCONTINUED. ESCORTED TO AWAITING VEHICLE PER RESIDENTIAL LEASING MANAGER IN . BELONGINGS OFF UNIT WITH DOWEL MAKER. NO ACUTE DISTRESS NOTED AT TIME OF DEPARTURE. PAPERWORK FOR PATIENT WITH DOWEL MAKER. ~TJRN
== END 2019-10-01 13:05 | DRG 493 ==
LOC: M.ERS 15:52 → M.ORTHSURG 18:04 → M.TBA-ER 18:04 → M.ORTHSURG 21:50
PROVIDERS: Emergency Medicine Emergency Medical Services; Internal Medicine; Orthopaedic Surgery; ADMIT Internal Medicine
PROC: 0QSH04Z Reposition Left Tibia with Internal Fixation Device, Open Approach (ICD-10-PCS; principal; 2019-09-26)
DX: S82.102A Unspecified fracture of upper end of left tibia, initial encounter for closed fracture (principal); I50.32 Chronic diastolic (congestive) heart failure; J98.11 Atelectasis; S82.832A Other fracture of upper and lower end of left fibula, initial encounter for closed fracture; D86.9 Sarcoidosis, unspecified; F32.9 Major depressive disorder, single episode, unspecified; E78.5 Hyperlipidemia, unspecified; E66.9 Obesity, unspecified; D64.9 Anemia, unspecified; I87.8 Other specified disorders of veins; M54.5 Low back pain; M19.90 Unspecified osteoarthritis, unspecified site; K21.9 Gastro-esophageal reflux disease without esophagitis; M10.9 Gout, unspecified; G89.29 Other chronic pain; M54.9 Dorsalgia, unspecified; E10.22 Type 1 diabetes mellitus with diabetic chronic kidney disease; I11.0 Hypertensive heart disease with heart failure; Z60.2 Problems related to living alone; G47.00 Insomnia, unspecified; Z90.49 Acquired absence of other specified parts of digestive tract; Z79.4 Long term (current) use of insulin; Z86.73 Personal history of transient ischemic attack (TIA), and cerebral infarction without residual deficits; Z88.6 Allergy status to analgesic agent; Z88.0 Allergy status to penicillin; Z88.8 Allergy status to other drugs, medicaments and biological substances; Z68.37 Body mass index [BMI] 37.0-37.9, adult; W01.0XXA Fall on same level from slipping, tripping and stumbling without subsequent striking against object, initial encounter; Y93.89 Activity, other specified; Y92.098 Other place in other non-institutional residence as the place of occurrence of the external cause; Y99.8 Other external cause status

== ENCOUNTER 2020-11-17 16:50 | Inpatient (IN) | payer MEDICARE, BC ==
[~2020-11-17] VITALS: Ht 167.6 cm; Wt 94.2 kg
--- NOTE | ~2020-11-17 | EMS ---
[address] [address] EMS Patient Care Report Name: VIKRAM ELIAS Room: [facility]#: [id number] Admission: 11/17/20 Attend Phys: Discharge: Date of : 50 Report #: [id number] THIS REPORT FOR: //name// Report Transmitted: 11/17/2020 17:10 EMS Care Summary [facility] Incident [id number] @ 11/17/2020 15:56 Incident Location [address] [place] [address] Patient VIKRAM ELIAS Female, 70 Years 1950 Patient Address [address] [place] [address] Patient History Hypertension (HTN),Depression,Anxiety,Type 1 Diabetes, Patient Allergies Penicillin allergy,Adhesive Tape, Patient Medications Januvia, Lisinopril, Cymbalta, Wellbutrin, Folic acid, Ambien, Simvastatin, Vitamin D, Insulin, Flexeril, Chief Complaint Fell on her ankle right ankle pain Disposition Transported No Lights/[place] Dispatch Reason Traumatic Injury Transported To [facility] Narrative Engine 1 was dispatched for a second out call while still on scene with Med 1 on an EMS call. Engine 1 crew went back to the station and picked up Med 2 and responded to the call. Upon arrival, the patient was sitting in her wheelchair [place] [id number] EMS Patient Care Report Name: VIKRAM ELIAS Room: [facility]#: [id number] Admission: 11/17/20 Attend Phys: Discharge: Date of : 50 Report #: [id number] in the kitchen. The patient was AOx4, strong, regular radial, bilateral pulses. Patient reported that she fell yesterday morning around 5:00 AM while getting up from the toilet and twisted her right ankle. There was no obvious deformities or bruising to the ankle but it was tender to the touch. Patient had to get her purse and use the restroom prior to leaving. The crew waited in the living room. When patient was ready we assisted to the patient to the stretcher just outside the door to her garage. Patient was secured to the stretcher via seatbelts and moved to the ambulance without incident. Med 2 went en route to [facility]. In the ambulance, the patient's vitals were obtained. A pillow was placed under her right ankle for comfort and a ice pack was placed on her ankle. Patient rated her initial pain at a 4 and it decreased when elevated. No IV access was established because the patient was adamant about using a butterfly catheter and we do not carry them on the ambulance. Patient's vitals were monitored through out transport. Hospital report was given via radio with no questions or orders received or requested. Med 2 arrived at the hospital. Patient was moved into the ER via stretcher to room 8 without incident. Patient care was transferred to ER staff in room 6. Med 2 went back into service. [id number] KShook Initial Vitals @16:30P: 84,R: 18,BP: 130/90,Pain: 4/10,GCS: 15,SpO2: 98,Revised Trauma: 12, @16:43P: 86,R: 18,BP: 134/88,Pain: 2/10,GCS: 15,SpO2: 99,Revised Trauma: 12, Assessments @16:32MENTAL:No Abnormalities,SKIN:No Abnormalities,HEENT:Head/Face: No Abnormalities,Eyes: No Abnormalities,Neck/Airway: No Abnormalities,LUNG SOUNDS:General: No Abnormalities,Left Upper: No Abnormalities,Right Upper: No Abnormalities,Left Lower: No Abnormalities,Right Lower: No Abnormalities,ABDOMEN:General: No Abnormalities,Left Upper: No Abnormalities,Right Upper: No Abnormalities,Left Lower: No Abnormalities,Right Lower: No Abnormalities,PELVIS//GI:No Abnormalities,EXTREMITIES:Right Leg: Weakness,Right Leg: Other,Left Arm: No Abnormalities,Right Arm: No Abnormalities,Left Leg: No Abnormalities,PULSE:NEURO:No Abnormalities, Impression Injury of Ankle Timeline 15:56,[place] [address] EMS Patient Care Report Name: VIKRAM ELIAS Room: [facility]#: [id number] Admission: 11/17/20 Attend Phys: Discharge: Date of : 50 Report #: [id number] 15:56,Dispatched 16:10,En Route 16:13,On Scene 16:14,At Patient 16:30,Depart Scene 16:30,BP: 130/90 M,PULSE: 84,RR: 18 R,SPO2: 98 Ox,ETCO2: ,BG: ,PAIN: 4,GCS: 15, 16:43,BP: 134/88 M,PULSE: 86,RR: 18 R,SPO2: 99 Ox,ETCO2: ,BG: ,PAIN: 2,GCS: 15, 16:50,At Destination 17:14,Call Closed 17:14,In District Disclaimer v1.1 Copyright 2020 [employer] This EMS Care Summary contains data elements from the applicable legal record (which may be displayed differently). It is designed to provide pertinent information for the following purposes: continuity of care, clinical quality, and state data reporting. The complete legal record is available to ED staff and administrators of the receiving hospital in ES's Patient Tracker. All data is provided "as is."
[~2020-11-17 16:50] MED LIST changes: +ATIVAN1 M1 PO; +CYCLOBENZAPRINE5 MG PO; +ELIQUIS5 MG PO; +LIDOPATCH1 EACH TOP; +TRAMADOL 50 MG50 MG PO
[2020-11-17 16:56] VITALS: BP 141/75
[2020-11-17 18:18] LABS: HEMOGLOBIN 12.6 gm/dL (12.0-15.0); MCH 30.5 pg (26.0-34.0); MCHC 33.1 g/dL (28.0-37.0); MCV 92.1 fL (80.0-100.0); MPV 13.4 fl. (7.2-11.1); RBC 4.13 mil/uL (4.20-5.00); RDW-CV 13.8 % (10.5-14.5); WBC 10.4 thou/uL (4.0-11.0)
[2020-11-17 18:23] LABS: CALCIUM 8.9 mg/dL (8.5-10.1); CREATININE 1.6 mg/dL (0.6-1.3)
[2020-11-17 18:28] LABS: ALBUMIN 3.1 g/dL (3.4-5.0); TOTAL BILIRUBIN 0.7 mg/dL (<0.1-1.0); TOTAL PROTEIN 7.2 g/dL (6.4-8.2)
[2020-11-17 18:30] LABS: POTASSIUM 2.9 mmol/L (3.5-5.1)
[2020-11-17 21:05] VITALS: BP 141/75
[2020-11-17 21:45] VITALS: BP 127/60
[2020-11-17] MEDS ORDERED: NEURONTIN100 MG PO (23:25)
[2020-11-18 07:30] VITALS: BP 128/52
--- NOTE | 2020-11-18 09:29 | EKG ---
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 : 1950 Requested By: [facility] [place] Order Number: [id number] MD: Corey Aranda Measurements Intervals X[place] Rate: 82 P: 17 TX: 155 QRS: -28 QRSD: 92 T: 85 QT: 398 QTc: 465 Interpretive Statements Sinus rhythm Atrial premature complex Borderline left axis deviation Abnormal R-wave progression, late transition Borderline repolarization abnormality Compared to ECG 09/23/2019 16:12:26 Atrial premature complex(es) now present Electronically Signed On 11-18-2020 9:29:28 [employer] PROFESSION[employer] by Corey Aranda [email or web address] <ELECTRONICALLY SIGNED> By: Corey Aranda MD, FAC 11/18/20 0929 [id number] Corey Aranda MD, FAC /EPI
[2020-11-18 10:34] LABS: CALCIUM 9.2 mg/dL (8.5-10.1); CREATININE 1.2 mg/dL (0.6-1.3); POTASSIUM 3.1 mmol/L (3.5-5.1)
[2020-11-18 10:37] LABS: MAGNESIUM 2.1 mg/dL (1.8-2.4); PHOSPHORUS* 3.6 mg/dL (2.5-4.9)
[2020-11-18 16:22] VITALS: BP 149/69
[2020-11-18 20:04] VITALS: BP 131/68
[2020-11-19 06:28] LABS: ABSOLUTE EOSINOPHILS 0.3 thou/uL (0.0-0.7); ABSOLUTE LYMPHOCYTES 2.7 thou/uL (0.8-5.3); ABSOLUTE MONOCYTES 0.8 thou/uL (0.0-1.2); ABSOLUTE NEUTROPHILS 4.8 thou/uL (1.6-8.1); BASOPHILS 0.5 %; EOSINOPHILS 3.3 %; HEMATOCRIT 32.9 % (37.0-47.0); HEMOGLOBIN 10.7 gm/dL (12.0-15.0); MCH 30.2 pg (26.0-34.0); MCHC 32.5 g/dL (28.0-37.0); MCV 93.1 fL (80.0-100.0); MONOCYTES 8.8 %; MPV 13.1 fl. (7.2-11.1); NUCLEATED RBCS 0 /100WBC; POLYS 55.4 %; RBC 3.53 mil/uL (4.20-5.00); RDW-CV 13.9 % (10.5-14.5); WBC 8.6 thou/uL (4.0-11.0)
[2020-11-19 06:33] LABS: CALCIUM 8.5 mg/dL (8.5-10.1); CREATININE 1.3 mg/dL (0.6-1.3)
[2020-11-19 07:35] VITALS: BP 135/52
[2020-11-19 08:01] LABS: PLATELET ESTIMATE DECREASED
[2020-11-19 08:02] LABS: LARGE PLATELETS FEW; PLATELET COUNT* 111 thou/uL (150-400)
[2020-11-19] MEDS ORDERED: ROXICODONE5 MG PO (11:05)
[2020-11-19 16:00] VITALS: BP 133/79
[2020-11-19 19:50] VITALS: BP 124/54
[2020-11-20 08:49] VITALS: BP 129/70
[2020-11-20 16:00] VITALS: BP 135/68
[2020-11-20 20:00] VITALS: BP 144/74
[2020-11-21 07:20] VITALS: BP 155/81
[2020-11-21 08:28] VITALS: BP 155/81
[2020-11-21] MEDS ORDERED: ADDERALL 30 MG30 MG PO (15:34)
== END 2020-11-21 14:29 | DRG 543 ==
LOC: M.ERS 16:50 → M.TBA-ER 18:58 → M.3W 18:58
PROVIDERS: Emergency Medicine Emergency Medical Services; Internal Medicine; ADMIT Internal Medicine; ATTEND Internal Medicine
DX: M80.071A Age-related osteoporosis with current pathological fracture, right ankle and foot, initial encounter for fracture (principal); N17.9 Acute kidney failure, unspecified; R44.0 Auditory hallucinations; F32.9 Major depressive disorder, single episode, unspecified; E78.5 Hyperlipidemia, unspecified; K21.9 Gastro-esophageal reflux disease without esophagitis; M10.9 Gout, unspecified; M17.11 Unilateral primary osteoarthritis, right knee; N18.9 Chronic kidney disease, unspecified; E11.22 Type 2 diabetes mellitus with diabetic chronic kidney disease; I12.9 Hypertensive chronic kidney disease with stage 1 through stage 4 chronic kidney disease, or unspecified chronic kidney disease; S82.64XA Nondisplaced fracture of lateral malleolus of right fibula, initial encounter for closed fracture; W18.39XA Other fall on same level, initial encounter; Z20.822 Contact with and (suspected) exposure to COVID-19; Z60.2 Problems related to living alone; Z96.643 Presence of artificial hip joint, bilateral; Z79.4 Long term (current) use of insulin; Z79.899 Other long term (current) drug therapy; Z88.5 Allergy status to narcotic agent; Z98.41 Cataract extraction status, right eye; Z90.49 Acquired absence of other specified parts of digestive tract; Z98.42 Cataract extraction status, left eye; Y93.89 Activity, other specified; Y92.89 Other specified places as the place of occurrence of the external cause; Y99.8 Other external cause status; Z88.0 Allergy status to penicillin; Z88.8 Allergy status to other drugs, medicaments and biological substances; Z91.09 Other allergy status, other than to drugs and biological substances; Z86.73 Personal history of transient ischemic attack (TIA), and cerebral infarction without residual deficits

== ENCOUNTER 2020-11-21 12:12 | Inpatient (IN) | payer MEDICARE, BC ==
[~2020-11-21] VITALS: Ht 167.6 cm; Wt 91.5 kg
[~2020-11-21 12:12] MED LIST changes: -LISINOPRIL40 MG PO; +NEURONTIN100 MG PO; +ROXICODONE5 MG PO; +ZESTRIL40 MG PO
[2020-11-21 15:25] VITALS: BP 162/79
[2020-11-21] MEDS ORDERED: ADDERALL 30 MG30 MG PO (15:34)
--- NOTE | 2020-11-21 16:54 | NUR ---
PATIENT ADMITTED FROM 3W THIS AFTERNOON. REPORT RECEIVED FROM NENITA CHERRY. ALERT AND ORIENTED X 4. UP TO BS WITH ASSISTANCE; GAIT/WALKER. PATIENT TO WEAR RIGHT CAM BOOT WHEN UP. PATIENT STATES SHE PREFERS TO SLEEP IN CHAIR DUE TO BACK PROBLEMS. ACCUCHECK AC/HS. ORIENTED TO REHAB UNIT. CALL LIGHT WITHIN REACH.
[2020-11-21 21:00] VITALS: BP 172/76
--- NOTE | 2020-11-22 05:10 | NUR ---
ASSUMED CARES AT 1920. ALERT AND ORIENTED X 4. HINTS OF CONFUSION AT TIMES. PT DOES SAY SHE HEARS THINGS. RIGHT ANKLE FRACTURE. WBAT RLE. CAM BOOT ON WHEN OOB. MAX ASSIST X 2 PERSON. GAIT BELT AND WALKER. NEEDS MUCH LIFTING ASSIST TO STAND. UP TO BSC. NEEDS CUEING WITH TRANSERS. STRESS INCONTINENCE. SLEPT OFF AND ON. CALL LIGHT IN REACH AND BED ALARM ON.
[2020-11-22 05:46] LABS: HEMATOCRIT 34.4 % (37.0-47.0); HEMOGLOBIN 11.1 gm/dL (12.0-15.0); MCH 30.4 pg (26.0-34.0); MCHC 32.3 g/dL (28.0-37.0); MCV 93.9 fL (80.0-100.0); MPV 12.7 fl. (7.2-11.1); RBC 3.66 mil/uL (4.20-5.00); RDW-CV 13.7 % (10.5-14.5); WBC 8.2 thou/uL (4.0-11.0)
[2020-11-22 06:29] LABS: CALCIUM 9.4 mg/dL (8.5-10.1); CREATININE 1.1 mg/dL (0.6-1.3); POTASSIUM 4.4 mmol/L (3.5-5.1)
[2020-11-22 08:15] VITALS: BP 173/74
[2020-11-22 12:53] VITALS: BP 138/60
--- NOTE | 2020-11-22 15:38 | NUR ---
Nutrition: Pt admitted to rehab unit. Rt ankle FX. Wt: 207#, and pt stated she is about her same wt as usual. H/o DM. Eating well. CHO controlled diet. Meds noted, on insulin. BG 153, albumin 3.1. She mentioned not liking the salad here, so I provided her with a menu - pt grateful. Food and nutrition-related knowledge deficit R/T DM diet AEB pt self report. She had stated she wants to do keto diet but also a kidney diet. We discussed at length a proper healthy diet for her (CHO controlled, low Na). Handouts/discussion on plate method, <600mg sodium per meal, <60g CHO per meal, TV dinner options, label reading, CHO sources. RD contact info provided. All questions answered today. RD expects fair compliance. Will follow weekly on rehab unit. Low risk.
--- NOTE | 2020-11-22 16:47 | NUR ---
ALERT AND ORIENTED X4 WITH PERIODS OF FORGETFULNESS. UP WITH 1 ASSIST, GAIT BELT, WALKER AND CAM BOOT ON RIGHT FOOT. WBAT TO RIGHT FOOT. NEW PAIN MEDICATION SEEMS HELPFUL FOR BACK PAIN. USES CALL LIGHT FOR ASSIST. FALL PRECAUTIONS IN PLACE. BED ALARM AND CHAIR ALARM USED.
[2020-11-22 19:00] VITALS: BP 147/73
[2020-11-23 05:11] LABS: HEMATOCRIT 34.4 % (37.0-47.0); HEMOGLOBIN 11.2 gm/dL (12.0-15.0); MCH 30.5 pg (26.0-34.0); MCHC 32.5 g/dL (28.0-37.0); MCV 93.8 fL (80.0-100.0); MPV 12.4 fl. (7.2-11.1); RBC 3.67 mil/uL (4.20-5.00); RDW-CV 13.5 % (10.5-14.5); WBC 7.6 thou/uL (4.0-11.0)
--- NOTE | 2020-11-23 05:18 | NUR ---
ASSUMED PT CARE AT 1930. PT ALERT AND ORIENTED X4, POLITE AND COOPERATIVE WITH CARES. NO CONFUSION NOTED. RIGHT ANKLE FRACTURE. WBAT RLE. TO WEAR CAM BOOT WHEN OOB. PRN PAIN MEDICATION FOR ANKLE AND BACK PAIN. UP WITH ASSIST OF 2, GAIT BELT AND WALKER TO [facility]. STOOL X1. SLEPT WELL OVERNIGHT. CALL LIGHT IN REACH, BED ALARM ON FOR SAFETY. HOURLY ROUNDING IN PROGRESS, WILL CONTINUE TO MONITOR.
[2020-11-23 05:27] LABS: CALCIUM 9.2 mg/dL (8.5-10.1); CREATININE 1.2 mg/dL (0.6-1.3); POTASSIUM 4.2 mmol/L (3.5-5.1)
[2020-11-23 08:00] VITALS: BP 143/75
--- NOTE | 2020-11-23 16:59 | NUR ---
AM ASSESSMENT AND VITAL SIGNS COMPLETED DOCUMENTED. PT WORKED WITH PT, OT AND ST TODAY. PRN PAIN MEDICATION TWICE FOR C/O BACK AND RIGHT ANKLE PAIN. PT TRANSFERS WITH ASSIST OF ONE, GAIT BELT AND A WALKER. PT ENCOURAGED TO KEEP HER LEGS ELEVATED WHEN ABLE TO MINIMALIZE EDAMA. FALL PRECAUTIONS AND HOURLY ROUNDING CONTINUE.
[2020-11-23 19:00] VITALS: BP 148/66
--- NOTE | 2020-11-24 05:13 | NUR ---
ASSUMED PT CARE AT 1930. PT ALERT AND ORIENTED X4, POLITE AND COOPERATIVE WITH CARES. RT ANKLE FX. WBAT RLE. PT TO WEAR CAM BOOT WITH OOB. PRN PAIN MEDICATION FOR ANKLE AND BACK PAIN. UP WITH ASSIST OF TWO, GAIT BELT AND WALKER TO [facility]. NO STOOL THIS SHIFT. PRN BENEDRYL PER PT REQUEST. USES CALL LIGHT APPROPRIATELY. CALL LIGHT IN REACH, BED ALARM ON FOR SAFETY. HOURLY ROUNDING IN PROGRESS, WILL CONTINUE TO MONITOR.
[2020-11-24 08:02] VITALS: BP 172/91
--- NOTE | 2020-11-24 13:50 | NUR ---
INITIAL ASSESSMENT: PATIENT ADMITTED TO THE [facility] ON 11/21/20 WITH A DIAGNOSIS OF RIGHT ANKLE FRACTURE. PATIENT INFORMS THAT PRIOR TO ADMIT SHE RESIDED AT HOME ALONE. PATIENT WAS INDEPENDENT WITH ADL'S. PATIENT OWNS A WALKER, CANE AND A WHEELCHAIR, BUT DID NOT USE ANY OF THESE FOR MOBILITY PRIOR TO ADMIT. PATIENT HAS PAST HX OF HH AND SNF. PATIENT INFORMS THAT SHE HAS 2 FRIENDS THAT ARE ABLE TO ASSIST HER AT D/C, BUT NOT SURE IF ANYONE WILL BE ABLE TO STAY WITH HER. CM ORIENTED PATIENT TO THE REHAB UNIT AND PROCESSES, RESIDENTS RIGHTS INFO, TEAM CONFRENCE, AND TO THE ROLE OF CM. CM WILL REMAIN AVAILABLE TO ASSIST AND FOLLOW NEEDED.
--- NOTE | 2020-11-24 14:41 | NUR ---
TEAM CONFRENCE MEETING HELD YESTERDAY. CM AND PHYSICIAN INFORMED PT OF MEETING AND PLAN TO RE-TEAM AND HAVE THE PT REMAIN IN THE UNIT AND CONTINUE THERAPIES FOR ANOTHER WEEK. PT IN AGREEMENT WITH THE PLAN. PT PROGRESSING TOWARDS GOALS, BUT BARRIERS ARE RIGHT ANKLE FRACTURE, DIFFUSE WEAKNESS IN HIPS, DECREASED STAND BALANCE, AND PAIN. CM WILL REMAIN AVAILABLE TO ASSIST AND FOLLOW NEEDED.
[2020-11-24 20:00] VITALS: BP 149/83
--- NOTE | 2020-11-25 05:23 | NUR ---
ASSUMED CARES AT 1920. ALERT AND ORIENTED. IN GOOD SPIRITS. TRAMADOL GIVEN FOR RIGHT FOOT PAIN. WBAT RLE. CAM BOOT ON WHEN OOB. MOD ASSIST WITH WALKER UP TO BSC. PT REQUESTED BENADRYL FOR SLEEP AID. SLEPT SOME OF THE NIGHT. CALL LIGHT IN REACH AND BED ALARM ON.
[2020-11-25 07:30] VITALS: BP 135/67
--- NOTE | 2020-11-25 16:54 | NUR ---
PATIENT COMPLETED THERAPIES ORDERED. PRN TRAMADOL GIVEN X 2 THIS SHIFT FOR ANKLE PAIN. RIGHT CAMBOOT IN PLACE, PATIENT FOOT SLIDING FORWARD. UP WITH ASSISTANCE WALKER AND GAIT BELT TO BATHROOM. ANKLE XRAY THIS EVENING, AWAITING RESULTS.
[2020-11-25 20:00] VITALS: BP 126/74
--- NOTE | 2020-11-26 06:45 | NUR ---
ASSUMED PT CARE AT 1930. ASSESSMENT COMPLETED CHARTED. ABLE TO MAKE NEEDS KNOWN. UP WITH 1 ASSIST TO BSC WITH BOOT. C/O LEG PAIN AND GAVE PRN PAIN MEDICATION PER EMAR. PT SLEPT WITHOUT INTERUPTION FROM ABOUT 2330 TILL 0500. RESTING IN BED AT THIS TIME WELL. WILL CONTINUE TO MONITOR.
[2020-11-26 08:00] VITALS: BP 134/80
[2020-11-26 20:00] VITALS: BP 127/64
--- NOTE | 2020-11-27 06:30 | NUR ---
ASSUMED PT CARE AT 1930. ASSESSMENT COMPLETED CHARTED. ABLE TO MAKE NEEDS KNOWN. UP WITH 1 TO BSC WITH CAM BOOT ON. RESTING IN BED OTHER THAN TO URINATE. C/O LEG PAIN AND GAVE PRN PAIN MEDICATION PER EMAR. WILL CONTINUE TO MONITOR.
[2020-11-27 08:00] VITALS: BP 140/72
[2020-11-27 19:00] VITALS: BP 139/73
--- NOTE | 2020-11-28 04:57 | NUR ---
ASSUMED PT CARE AT 1930. PT ALERT AND ORIENTED X4, POLITE AND COOPERATIVE WITH CARES. R ANKLE FRACTURE, TO WEAR CAM BOOT WHEN OOB. WBAT RLE. TRAMADOL AND BENEDRYL AT HS PER PT REQUEST. UP TO BSC TO VOID WITH ASSIST OF ONE. STOOL X1 THIS SHIFT. PT FELT HER BACK PAIN WAS EXACERBATED BY THE BED IN HER ROOM. THAT BED WAS EXCHANGED FOR A DIFFERENT BED WHICH PT STATES IS MORE COMFORTABLE. PRN TRAMADOL AT 0130. CALL LIGHT IN REACH, BED ALARM ON FOR SAFETY. HOURLY ROUNDING IN PROGRESS, WILL CONTINUE TO MONITOR.
[2020-11-28 09:50] VITALS: BP 143/71
--- NOTE | 2020-11-28 17:02 | NUR ---
ASSUMED CARE OF PATIENT AT 1430, REPORT RECEIVED FROM NENITA KELLY. PATIENT COMPLETED THERAPIES ORDERED THIS SHIFT. UP TO CHAIR. UP WITH ASSISTANCE TO BSC, GAIT BELT/WALKER. RIGHT CAMBOOT IN PLACE WHEN OUT OF BED. PRN TRAMADOL GIVEN X 1 THIS EVENING. BM NOTED THIS SHIFT.
[2020-11-28 20:00] VITALS: BP 132/64
--- NOTE | 2020-11-29 05:03 | NUR ---
ASSUMED CARES AT 1920. ALERT AND ORIENTED. FELT DOWN AND WAS MISSING DOG. WBAT RLE. CAM BOOT WHEN OOB. PAIN MEDS GIVEN. XANAX GIVEN PER PT REQUEST. MOD ASSIST WITH GAIT BELT AND WALKER. UP TO BSC. STRESS INCONTINENCE. SLEPT MOST OF THE NIGHT. CALL LIGHT IN REACH AND BED ALARM ON.
[2020-11-29 07:30] VITALS: BP 176/74
--- NOTE | 2020-11-29 08:11 | NUR ---
CM REACHED OUT TO PT AND HER BROTHER, JUAN JOSE, BOTH DENIED QUESTIONS/CONCERNS FOR TOMORROW'S TEAM MTG.
[2020-11-29 16:21] VITALS: BP 135/73
--- NOTE | 2020-11-29 16:40 | NUR ---
PATIENT COMPLETED THERAPIES ORDERED THIS SHIFT. UP TO CHAIR. UP WITH ASSISTANCE; GAIT BELT/WALKER. PATIENT DID HAVE AN INCONTINENT EPISODE OF URINE THIS AM. BM NOTED X 2 THIS SHIFT. PRN TRAMADOL GIVEN THIS AM. RIGHT CAMBOOT IN PLACE WHEN OUT OF BED. ACCUCHECKS DONE BEFORE MEALS THIS SHIFT.
[2020-11-29 20:00] VITALS: BP 139/75
[2020-11-30 04:38] LABS: HEMATOCRIT 34.1 % (37.0-47.0); HEMOGLOBIN 11.2 gm/dL (12.0-15.0); MCH 30.6 pg (26.0-34.0); MCHC 32.8 g/dL (28.0-37.0); MPV 12.6 fl. (7.2-11.1); RBC 3.66 mil/uL (4.20-5.00); RDW-CV 13.3 % (10.5-14.5); WBC 8.1 thou/uL (4.0-11.0)
--- NOTE | 2020-11-30 04:49 | NUR ---
ASSUMED CARES AT 1920. ALERT AND ORIENTED. PLEASANT. MOD ASSIST WITH GAIT BELT. STAND AND PIVOT. UP TO BSC. CAM BOOT WITH OOB. HS SNACK PROVIDED. SLEPT SOME. CALL LIGHT IN REACH AND BED ALARM ON.
[2020-11-30 04:52] LABS: CALCIUM 9.1 mg/dL (8.5-10.1); CREATININE 1.7 mg/dL (0.6-1.3)
[2020-11-30 07:30] VITALS: BP 137/67
--- NOTE | 2020-11-30 13:34 | NUR ---
TEAM CONFRENCE MEETING HELD TODAY. CM AND PHYSICIAN INFORMED PT OF MEETING AND PLAN TO RE-TEAM AND D/C PT NEXT SATURDAY. PT IN AGREEMENT WITH THE PLAN. PT PROGRESSING TOWARDS GOALS, BUT BARRIERS ARE COMPLEX DIVIDED ATENTION, MEMORY, WEAKNESS, DECREASED BALANCE, AND IMPULSIVITY. CM WILL REMAIN AVAILABLE TO ASSIST AND FOLLOW NEEDED.
--- NOTE | 2020-11-30 16:17 | NUR ---
PATIENT COMPLETED THERAPIES ORDERED THIS SHIFT. UP TO CHAIR. UP WITH ASSISTANCE TO BATHROOM, GAIT BELT AND WALKER. BM THIS SHIFT. PATIENT WEARING RIGHT CAMBOOT WHEN UP. DR. ESPINO REQUESTING US OF KARYN LE'S, SPOKE WITH US THIS AFTERNOON AND STATED THEY WOULD COME AFTER THERAPIES. CREATINE ELEVATED, BMP WAS ORDERED FOR TOMORROW. NO COMPLAINTS OF PAIN THIS SHIFT. ACCUCHECKS WITH MEALS. TEAM MEETING TODAY, RETEAM.
[2020-11-30 20:00] VITALS: BP 147/73
[2020-12-01 04:56] LABS: CALCIUM 9.5 mg/dL (8.5-10.1); CREATININE 1.6 mg/dL (0.6-1.3)
[2020-12-01 05:13] LABS: HEMATOCRIT 35.5 % (37.0-47.0); HEMOGLOBIN 11.8 gm/dL (12.0-15.0); MCH 30.9 pg (26.0-34.0); MCHC 33.3 g/dL (28.0-37.0); MCV 92.9 fL (80.0-100.0); MPV 13.2 fl. (7.2-11.1); RBC 3.83 mil/uL (4.20-5.00); RDW-CV 13.1 % (10.5-14.5)
--- NOTE | 2020-12-01 06:12 | NUR ---
ASSUMED PT CARE AT 1930. ASSESSMENT COMPLETED CHARTED. ABLE TO MAKE NEEDS KNOWN. RESTING IN HER BED OR HER RECLINER ALL NIGHT. C/O PAIN IN ANKLE AND GAVE PRN PAIN MEDICATIONS. UP WITH SBA WITH WALKER SEVERAL TIMES TO RR. WILL CONTINUE TO MONITOR
[2020-12-01 07:57] VITALS: BP 138/73
--- NOTE | 2020-12-01 17:30 | NUR ---
RECEIVED REPORT AROUND 0715. ASSUMED CARE. VS AND ASSESSMENT CHARTED. PT UP IN CHAIR THIS AM. THERAPIES ORDERED. PT HAD SPEECH, OCCUPATIONAL AND PHYSICAL THERAPY TODAY. HAD SHOWER TODAY. MEDS GIVEN PER NOV. HOURLY ROUNDING PERFORMED. PT HAD PAIN THROUGHOUT SHIFT IN RIGHT ANKLE WHERE FRACTURE IS LOCATED. PT STAYED UP IN CHAIR MOST OF DAY. PT IS UP WITH WALKER AND GAIT BELT OR WHEELCHAIR. RIGHT ANKLE IS WEIGHT BEARING TOLERATED. USED WALKER WITH MOST TRANSFERS TO BATHROOM THIS SHIFT. PT CURRENTLY UP IN CHAIR. CALL LIGHT WITHIN REACH. WILL CONTINUE TO MONITOR.
[2020-12-01 19:45] VITALS: BP 152/78
[2020-12-02 04:40] LABS: HEMATOCRIT 36.1 % (37.0-47.0); HEMOGLOBIN 11.7 gm/dL (12.0-15.0); MCH 30.3 pg (26.0-34.0); MCHC 32.4 g/dL (28.0-37.0); MCV 93.5 fL (80.0-100.0); MPV 13.2 fl. (7.2-11.1); RBC 3.86 mil/uL (4.20-5.00); RDW-CV 12.9 % (10.5-14.5); WBC 8.7 thou/uL (4.0-11.0)
[2020-12-02 05:00] LABS: CALCIUM 9.9 mg/dL (8.5-10.1); CREATININE 1.7 mg/dL (0.6-1.3); MAGNESIUM 1.9 mg/dL (1.8-2.4); PHOSPHORUS* 4.4 mg/dL (2.5-4.9); POTASSIUM 4.2 mmol/L (3.5-5.1)
--- NOTE | 2020-12-02 06:51 | NUR ---
ASSUMED PT CARE AT 1930. ASSESSMENT COMPLETED CHARTED. ABLE TO MAKE NEEDS KNOWN. C/O ANKLE AND BACK PAIN MOST OF THE NIGHT AND GAVE PRN PAIN MEDS PER EMAR. RESTING IN THE RECLINER AT THIS TIME. UP WITH 1 ASSIST. CAM BOOT ON WITH TRANSFERS. WILL CONTINUE TO MONITOR.
[2020-12-02 07:56] VITALS: BP 115/58
--- NOTE | 2020-12-02 11:52 | NUR ---
ASSESSMENT COMPLETED DOCUMENTED THIS MORNING. PATIENTWAS IN THE MIDDLE OF SPEECH THERAPY SESSION AND REQUESTED ASSISTANCE TO THE BR. NURSING ASSISTED HER UP OUT OF THE RECLINER AT THE BEDSIDE WITH GB/FWW, PATIENT HAD ALREADY SOILED THE CHAIR COVERING THROUGH HER BRIEF. AMBULATED TO THE BR WITH MUCH ENCOURAGEMENT AND VERBAL CUEING...PATIENT KEPT WANTING TO STOP AND LEAN FAR FORWARD ON THE WALKER SHE COULD, RIGHT FOOT WITH CAM BOOT ON ANGLED OUT AT APPROX 75-90 DEGREE ANGLE, WHEN SHE FIRST STARTED TO AMBULATE AFTER RISING FROM THE CHAIR SHE STOOD ON HER TIP TOES AND NEEDED INSTRUCTIONS TO PUT HER FOOT DOWN AND DECREASE THE RISK OF FALLING. AFTER ARRIVING TO THE BR SHE WAS ASSISTED WITH REMOVING HER BRIEF AND IT WAS FULL OF LIQUID DIARRHEA STOOL. PATIENT SAT IN THE BR FOR APPROX 30 MINUTES.."TO MAKE SURE I'M DONE." OT TOOK OVER FOR ADL'S AND TOILETING AT THAT TIME.
--- NOTE | 2020-12-02 11:57 | NUR ---
1145 22G INSYTE STARTED IN RIGHT F/A FOR NEW ORDERS TO INFUSE ONE BAG OF NS 1000 CC AT WIDE OPEN PER DR. RUSSELL. TIME INBETWEEN THERAPIES TO GET IV STARTED WAS OBTAINED. HYDRALAZINE 25MG STARTED AND LISINOPRIL DCD PER DR. RUSSELL WELL. PATIENT TOLERATED PROCEDURE WELL.
--- NOTE | 2020-12-02 15:21 | NUR ---
I have reviewed the documentation by FRANK WEBB from 12/01/20 to 12/02/20 and I concur with it. KIMBERLY BRADFORD
[2020-12-02 19:38] VITALS: BP 128/69
[2020-12-03 04:56] LABS: HEMATOCRIT 34.9 % (37.0-47.0); HEMOGLOBIN 11.3 gm/dL (12.0-15.0); MCH 30.2 pg (26.0-34.0); MCHC 32.4 g/dL (28.0-37.0); MCV 93.2 fL (80.0-100.0); MPV 13.5 fl. (7.2-11.1); RBC 3.74 mil/uL (4.20-5.00); RDW-CV 13.3 % (10.5-14.5)
[2020-12-03 04:58] LABS: CALCIUM 9.5 mg/dL (8.5-10.1); CREATININE 1.9 mg/dL (0.6-1.3); MAGNESIUM 1.9 mg/dL (1.8-2.4); POTASSIUM 4.3 mmol/L (3.5-5.1)
--- NOTE | 2020-12-03 05:40 | NUR ---
PATIENT SLEPT WELL IN RECLINER CHAIR DURING THIS SHIFT. PT ENCOURAGED TO SHIFT POSITIONS WHILE SITTING. PT WITH CAM BOOT ON RT FOOT. PT UP WITH G.BELT AND WALKER PLUS MAX ASSIST OF TWO TO BSC. PT WITH ONE SMALL BOWEL MOVEMENT PLUS DURING DURING THIS SHIFT. PT WEARING BRIEF. PT REQUESTED MUSCLE RELAXER AT BEGINNING OF SHIFT. DENIES NEEDS AT THIS TIME. WILL CONTINUE TO MONITOR.
[2020-12-03 07:55] VITALS: BP 123/61
--- NOTE | 2020-12-03 15:53 | NUR ---
CM SPOKE TO THE PT TO CHECK-IN ON INPT REHAB PROGRESS AND TO ADRESS AND DISCUSS D/C PLANNING FOR SATURDAY HOME WITH HH PER LAST TEAM CONFRENCE MEETING. PT HAS NO QUESTIONS OR CONCERNS AT THIS TIME. CM PLANS TO F/U WITH PT ON SATURDAY TO DISCUSS HH AND ANY OTHER QUESTIONS OR CONCERNS THAT SHE MAY HAVE. CM WILL REMAIN AVAILABLE TO ASSIST AND FOLLOW NEEDED.
--- NOTE | 2020-12-03 18:35 | NUR ---
Pt remained A&Ox4 for entire shift. Vital signs stable. Pt pleasant with staff. Pt used commode several times today and only needed assistance wiping. Pt continues to have loose stools but very small amounts each time. Pt ate about 50% of each meal today. Pt up to chair for the entire day stating that it is more comfortable. Pt has slept most of the day waking up to use the bathroom and eat. Chair alarm on, Call light within reach, fall precautions in place.
[2020-12-03 20:40] VITALS: BP 138/80
[2020-12-04 04:04] LABS: CALCIUM 8.7 mg/dL (8.5-10.1); CREATININE 1.7 mg/dL (0.6-1.3); MAGNESIUM 1.9 mg/dL (1.8-2.4); POTASSIUM 4.5 mmol/L (3.5-5.1)
[2020-12-04 04:17] LABS: HEMATOCRIT 33.6 % (37.0-47.0); HEMOGLOBIN 10.9 gm/dL (12.0-15.0); MCH 30.6 pg (26.0-34.0); MCHC 32.5 g/dL (28.0-37.0); MPV 13.5 fl. (7.2-11.1); RBC 3.58 mil/uL (4.20-5.00); RDW-CV 13.2 % (10.5-14.5); WBC 9.1 thou/uL (4.0-11.0)
--- NOTE | 2020-12-04 05:17 | NUR ---
PATIENT HAS REMAINED ALERT AND ORIENTED X 4 THROUGOUT THE SHIFT. RESTING AT INTERVALS ON HOURLY ROUNDS. SLEPT IN RECLINER TONIGHT. UP TO BSC WITH GAIT BELT AND WALKER. (CAM BOOT ON WHEN UP TO RLE) PATIENT WAS FOR MOST OF TRANSFERS CGA FOR SAFETY. DID PROVIDED MIN ASSIST TO STAND X 1. 4-5 BM THIS SHIFT. SMALL X 2 AND IN LARGER QUANTITIES X 3. UNFORMED LOOSE PUDDING CONSISTENCY. PATIENT PERFORMED TOILETING HYGIENE WITH TOILET PAPER AND NURSING FOLLOWED UP WITH WET WIPE ASSIST. IVF'S PER ORDER. VITAL SIGNS STABLE. FALL PRECAUTIONS IN PLACE. CONTINUE TO MONITOR.
--- NOTE | 2020-12-04 18:13 | NUR ---
Pt remanied A&O x4 for entire shift. Vital signs stable. Pt pleasant with staff. Pt only complained of pain in ankle one time this shift and given medication per NOV. Pt walked to bathroom 3 times today with stand by assistance. Pt still having loose stools but small amounts each time. Pt more awake and talkative today. Cam boot in place all day. Pt in chair for entire day. Pt had good appetite. Chair alarm on, call light within reach, fall precautions in place.
[2020-12-04 20:00] VITALS: BP 175/78
[2020-12-05] MEDS ORDERED: AMBIEN CR12.5 MG PO (03:59)
--- NOTE | 2020-12-05 05:01 | NUR ---
ASSUMED PT CARE AT 1930. ASSESSMENT COMPLETED CHARTED. ABLE TO MAKE NEEDS KNOWN. UP WITH 1 ASSIST TO BATHROOM. C/O BACK AND RIGHT FOOT PAIN AND GAVE PRN PAIN MEDICATION PER EMAR. IV FLUIDS RUNNING UNTIL IV INFILTRATED. NOTIFIED DR AND NEW ORDERS TO DC BOTH IV AND FLUIDS. PT RESTING IN CHAIR BUT HAS NOT SLEPT ALL NIGHT. WILL CONTINUE TO MONITOR.
[2020-12-05 08:30] VITALS: BP 161/70
--- NOTE | 2020-12-05 17:48 | NUR ---
ALERT AND ORIENTED X4. UP WITH 1 ASSIST, GAIT BELT AND WALKER. USES CAM BOOT ON RIGHT FOOT WHEN UP. DR NOTIFIED OF PATIENT C/O LOOSE STOOLS. NEW ORDERS NOTED. USING PO PAIN MEDICATION TO HELP WITH PAIN. USES CALL LIGHT FOR ASSIST. FALL PRECAUTIONS IN PLACE. BED ALARM AND CHAIR ALARM USED.
[2020-12-05 20:00] VITALS: BP 162/75
--- NOTE | 2020-12-06 05:52 | NUR ---
ASSUMED PT CARE AT 1930. ASSESSMENT COMPLETED CHARTED. ABLE TO MAKE NEEDS KNOWN AT THE BEGINNING OF THE SHIFT. AT THE BEGINNING OF SHIFT, PT TRANSFERRED HERSELF TO WHEELCHAIR WITHOUT HELP, EDUCATED PT OF NEED TO LET STAFF HELP HER. SHE STATED SHE KNEW BUT DIDNT WANT TO BOTHER US. THE NIGHT WENT ON, PT STARTED HAVING VISUAL, AUDITORY, AND TACTILE HALLUCINATIONS ABOUT ANYTHING FROM HER DOG TO A MAN IN THE SHOWER TO SEEING A NECKLACE AROUND HER NECK AND TALKING TO IT. NOTIFIED DR OF THIS CHANGE IN CHARACTER, HER LACK OF SLEEP THE LAST COUPLE NIGHTS, AND THE USE OF AMBIEN TO TRY AND HELP HER INSOMNIA. N.N.O. PT STARTED THINKING DURING THE NIGHT SHE WAS AT HOME, THAT SHE NEEDED TO CLEAN THE HOUSE BEFORE HER PARENTS GOT HOME, AND WOULD TALK JIBBERISH WHILE SEEMING TO FALL ASLEEP, EVEN WHILE ON THE BSC. PT NOW SLEEPING SOUNDLY IN HER RECLINER FOR THE PAST COUPLE HOURS. WILL CONTINUE TO MONITOR.
[2020-12-06 07:55] LABS: HEMATOCRIT 32.3 % (37.0-47.0); HEMOGLOBIN 10.6 gm/dL (12.0-15.0); MCH 30.5 pg (26.0-34.0); MCV 92.5 fL (80.0-100.0); MPV 12.7 fl. (7.2-11.1); RBC 3.49 mil/uL (4.20-5.00); RDW-CV 12.9 % (10.5-14.5); WBC 8.3 thou/uL (4.0-11.0)
[2020-12-06 08:00] VITALS: BP 141/72
[2020-12-06 08:09] LABS: CALCIUM 8.8 mg/dL (8.5-10.1); CREATININE 1.3 mg/dL (0.6-1.3); MAGNESIUM 1.7 mg/dL (1.8-2.4); POTASSIUM 3.7 mmol/L (3.5-5.1)
--- NOTE | 2020-12-06 16:24 | NUR ---
cm informed pt of planned dc date of 12/07/20. pt question for tomorrow team r/t to . cm answered question for pt. pt wants [facility]. cm faxed referral to [facility] [phone].
[2020-12-06 19:00] VITALS: BP 141/72
[2020-12-07 06:03] LABS: HEMATOCRIT 33.7 % (37.0-47.0); HEMOGLOBIN 10.8 gm/dL (12.0-15.0); MCV 93.7 fL (80.0-100.0); MPV 13.5 fl. (7.2-11.1); RBC 3.6 mil/uL (4.20-5.00); RDW-CV 12.9 % (10.5-14.5); WBC 9.4 thou/uL (4.0-11.0)
[2020-12-07 06:20] LABS: CALCIUM 8.8 mg/dL (8.5-10.1); CREATININE 1.3 mg/dL (0.6-1.3); POTASSIUM 3.4 mmol/L (3.5-5.1)
[2020-12-07 08:00] VITALS: BP 144/74
[2020-12-07] MEDS ORDERED: FLEXERIL PO (09:52)
--- NOTE | 2020-12-07 18:24 | NUR ---
ASSESSMENT COMPLETED DOCUMENTED THIS MORNING. PATIENT UP AND PARTICIPATING WITH THERAPIES, FRUSTRATED THIS AFTERNOON R/T THE NEED FOR AN ADDITIONAL WEEK OF SERVICES PRIOR TO DCING HOME SAFELY. K+ 3.4 THIS MORNING AND ELECTROLYTE PROTOCOL INITIATED, 40 K+ GIVEN AT 1000, AT 1400 RECHECKED WITH LEVEL AT 4.2. HAS REMAINED CONTINENT OF B&B TODAY.
[2020-12-07 20:00] VITALS: BP 148/74
--- NOTE | 2020-12-08 05:01 | NUR ---
ASSUMED PT CARE AT 1930. PT ALERT AND ORIENTED X4, POLITE AND COOPERATIVE WITH CARES. PT SITTING UP IN RECLINER AT SHIFT CHANGE AND PREFERS TO SLEEP IN RECLINER OVERNIGHT. CAM BOOT TO RIGHT FOOT WHEN UP TO VOID. PT UP WITH GAIT BELT, WALKER AND ASSIST OF ONE. NO STOOL THIS SHIFT. PRN PAIN MEDICATION FOR RIGHT FOOT PAIN. USES CALL LIGHT APPROPRIATELY. CALL LIGHT IN REACH, BED ALARM ON FOR SAFETY. HOURLY ROUNDING IN PROGRESS, WILL CONTINUE TO MONITOR.
[2020-12-08 08:56] VITALS: BP 164/78
--- NOTE | 2020-12-08 14:30 | NUR ---
TEAM CONFRNECE MEETING HELD YESTERDAY. CM AND PHYSICIAN INFORMED PT OF THE MEETING AND PLAN TO RE-TEAM AND D/C PT NEXT SATURDAY PENDING PT MAKING FURTHER PRORESS. CM AND PHYSICIAN DISCUSS POSSIBLE NEED FOR SUPERVISION AND ASSISTANCE AT D/C, OR SNF PLACEMENT. PT INITIALLY RESISTANT, BUT NOW IN AGREEMENT WITH THE PLAN. CM WILL REMAIN AVAILABLE TO ASSIST AND FOLLOW WITH D/C PLANNING NEEDED.
--- NOTE | 2020-12-08 18:31 | NUR ---
ASSESSMENT COMPLETED DOCUMENTED THIS MORNING. PATIENT CONTINUES TO PARTICIPATE WITH THERAPIES AND IS SHOWING MUCH MORE INDEP AND MOTIVATION TO PERFORM TASKS ON HER OWN. HAS BEEN SBA TO THE BR, PROVIDING HER OWN TOILET HYGIENE, AND APPLYING HER OWN CAM BOOT. TRAMADOL 50MG GIVEN AT 0930 WITH RELIEF STATED.
[2020-12-08 20:00] VITALS: BP 150/63
--- NOTE | 2020-12-09 05:47 | NUR ---
ASSUMED PT CARE AT 1930. PT ALERT AND ORIENTED X4, POLITE AND COOPERATIVE WITH CARES. PT SITTING UP IN RECLINER AT SHIFT CHANGE AND PREFERS TO SLEEP IN RECLINER OVERNIGHT. WAFFLE CUSHION PROVIDED FOR RECLINER. CAM BOOT TO RIGHT FOOT WHEN UP TO VOID. PT UP WITH GAIT BELT, WALKER AND SBA. PT DOES OWN PERICARES. NO STOOL THIS SHIFT. PRN BENEDRYL AND HYDROXYZINE THIS SHIFT PER PT REQUEST. PT WITH COUGHING AND CONGESTION, PER PT SHE HAS SEASONAL ALLERGIES. CONCERNED ABOUT BRUISING FROM UNSUCCESSFUL PHELBOTOMY ATTEMPTS, WARM PACK PROVIDED FOR LEFT HAND. TRAMADOL AT HS FOR RIGHT FOOT AND BACK PAIN. USES CALL LIGHT APPROPRIATELY. CALL LIGHT AND FREQUENTLY USED ITEMS IN REACH. CHAIR ALARM ON FOR SAFETY. HOURLY ROUNDING IN PROGRESS, WILL CONTINUE TO MONITOR.
[2020-12-09 07:39] VITALS: BP 166/84
--- NOTE | 2020-12-09 16:56 | NUR ---
PT WORKED WITH THERAPIES. UP WITH GAIT BELT, WALKER, AND MIN ASSIST. PT BG THIS AM WAS 54. JUICE AND AMANDA CRACKERS GIVEN. RECHECKED AND WAS 72. BREAKFAST THEN CAME AND PT ATE. CAM BOOT TO RLE. PRN PAIN MEDICATION GIVEN PER PT REQUEST. DR LEONARD ORDERED TESSALON PERLES PER PT REQEUST FOR COUGH. PT REPORTED DECREASED COUGH AFTER TAKING IT. FALL PRECAUTIONS IN PLACE INCLUDING CHAIR ALARM. CALL LIGHT IN ELLIE.
[2020-12-09 19:40] VITALS: BP 141/67
--- NOTE | 2020-12-10 04:58 | NUR ---
ASSUMED PT CARE AT 1930. PT ALERT AND ORIENTED X4, POLITE AND COOPERATIVE WITH CARES. PT SITTING UP IN RECLINER AT SHIFT CHANGE AND PREFERS TO SLEEP IN RECLINER. UP TO BATHROOM WITH ASSIST OF ONE, GAIT BELT AND WHEELCHAIR. CAM BOOT TO RIGHT FOOT WHEN UP. TESCHEYENNEON LADI FOR COUGH. PRN PAIN MEDICATION PER PT REQUEST. CALL LIGHT IN REACH, CHAIR ALARM ON FOR SAFETY. HOURLY ROUNDING IN PROGRESS, WILL CONTINUE TO MONITOR.
[2020-12-10 07:53] VITALS: BP 138/54
--- NOTE | 2020-12-10 18:21 | NUR ---
ASSESSMENT COMPLETED DOCUMENTED THIS MORNING. PATIENT VERY DROWSY AND UNABLE TO KEEP HER EYES OPEN FOR MOST OF THE MORNING, SPILLED SOME OF HER BREAKFAST ON THE FLOOR AND FELL BACK ASLEEP. PATIENT STATES SINCE SHE STARTED TAKING THE TESSALON FOR HER COUGH SHE HAS BEEN HAVING TROUBLE STAYING AWAKE. NONE GIVEN TODAY AND PATIENT HAS BECOME MORE AWAKE THE DAY PROGRESSED, READING ON HER PHONE, MAKING NOTES TO HERSELF, AND CALLING OUT FOR SBA TO USE THE BR.
[2020-12-10 20:50] VITALS: BP 141/72
--- NOTE | 2020-12-10 20:50 | NUR ---
SITTING UP IN RECLINER WATCHING TV AND PLAYING Jumblets ON HER CELL. CAM BOOT TO RIGHT LEG INTACT. AMBULATED TO THE BATHROOM WITH STAND BY ASSIST, GAITBELT, WALKER. DID OWN MARKO CARE AND CLOTHING ADJUSTMENTS. HAD A LARGE FORMED BM. CALL LIGHT WITHIN REACH. SLEEPS IN RECLINER.
--- NOTE | 2020-12-11 05:06 | NUR ---
DIDN'T GO TO SLEEP UNTIL ABOUT 0200. PATIENT STATES STAYS UP LATE AT HOME TOO. PAIN MEDICATION GIVEN FOR LOW BACK PAIN AND RIGHT ANKLE PAIN WITH RELIEF. HOURLY ROUNDING IN PROCESS.
[2020-12-11 08:10] VITALS: BP 140/68
--- NOTE | 2020-12-11 16:45 | NUR ---
PATIENT UP WITH ASSISTANCE THIS SHIFT, GAIT BELT/WALKER. PATIENT SITTING UP IN CHAIR AND AMBULATING TO BATHROOM WITH STAFF. NO COMPLAINTS OF PAIN. ACCUCHECKS AC/HS, LANTUS DECREASED AT HS TO [address] LEONARD. BM X 2 THIS SHIFT. AM LABS.
[2020-12-11 19:30] VITALS: BP 158/87
--- NOTE | 2020-12-11 19:30 | NUR ---
AMBULATED TO THE BATHROOM WITH STAND BY ASSIST, GAITBELT, WALKER, CAM BOOT TO RIGHT LEG AT SHIFT CHANGE TO VOID. DOES OWN MARKO CARE AND CLOTHING ADJUSMENT. CHOSE TO SIT UP IN WHEELCHAIR FOR AWHILE TO FOLD HER LAUNDRY. PROPELS SELF IN WHEELCHAIR.
[2020-12-12 05:14] LABS: HEMATOCRIT 35.4 % (37.0-47.0); HEMOGLOBIN 11.7 gm/dL (12.0-15.0); MCH 30.8 pg (26.0-34.0); MCHC 33.1 g/dL (28.0-37.0); MCV 92.9 fL (80.0-100.0); MPV 12.5 fl. (7.2-11.1); RBC 3.81 mil/uL (4.20-5.00); RDW-CV 13.3 % (10.5-14.5); WBC 10.5 thou/uL (4.0-11.0)
--- NOTE | 2020-12-12 05:32 | NUR ---
RESTED QUIETLY. THIS MORNING HAD TO GO TO THE BATHROOM VIA WHEELCHAIR DUE TO WEAKNESS. HOURLY ROUNDING IN PROGRESS.
[2020-12-12 05:36] LABS: CALCIUM 9.2 mg/dL (8.5-10.1); CREATININE 1.3 mg/dL (0.6-1.3); MAGNESIUM 1.8 mg/dL (1.8-2.4); POTASSIUM 4.4 mmol/L (3.5-5.1)
[2020-12-12 08:00] VITALS: BP 162/80
--- NOTE | 2020-12-12 15:19 | NUR ---
CM SPOKE TO THE PT TO DISCUSS ANY QUESTIONS OR CONCERNS THAT SHE MAY HAVE FOR THIS WEEKS TEAM CONFRENCE MEETING. PT HAS NO QUESTIONS OR CONCERNS AT THIS TIME, BUT INFORMS THAT SHE IS HOPEFUL THAT SHE WILL BE ABLE TO 'GO BACK HOME THIS WEEK'. PT INFORMS THAT SHE HAS ALL NEEDED DME, AND WOULD LIKE TO HAVE [facility] HH AT D/C. CM AND PHYSICIAN TO SEE PT ON SATURDAY AFTER TEAM TO PROVIDE UPDATE. CM WILL REMAIN AVAILABLE TO ASSIST AND FOLLOW FOR D/C PLANNING NEEDED.
--- NOTE | 2020-12-12 16:54 | NUR ---
ALERT AND ORIENTED X4. UP WITH STAND BY ASSIST X1, GAIT BELT AND WALKER. WEARS CAM BOOT WHEN UP ON RIGHT FOOT. TAKES PO PAIN MEDICATION TO HELP WITH PAIN. TAKES PILLS WITHOUT DIFFICULTY. LIKES TO SLEEP IN RECLINER, REFUSED TO GO TO BED. FALL PRECAUTIONS IN PLACE. BED ALARM AND CHAIR ALARM USED.
[2020-12-12 19:25] VITALS: BP 104/66
[2020-12-12 19:40] VITALS: BP 156/83
--- NOTE | 2020-12-12 20:40 | NUR ---
SITTING UP IN RECLINER READING NEWS ON HER CELL. AMBULATED ALMOST ALL THE WAY TO THE BATHROOM WITH STAND BY ASSIST AND WALKER AND GOT WEAK. PROVIDED WITH A WHEELCHAIR AND PATIENT COVERED THE REST OF THE DISTANCE TO THE BATHROOM IN THE WHEELCHAIR. PROPELS SELF IN WHEELCHAIR AND ABLE TO LOCK THE WHEELCHAIR. TRANSFERRED FROM WHEELCHAIR TO THE TOILET WITH STAND BY ASSIST. DOES OWN MARKO CARE AND CLOTHING ADJUSTMENTS. CALL LIGHT WITHIN REACH. WILL GIVE PAIN MEDICATION FOR COMPLAINT OF PAIN IN BACK AND RIGHT LEG. CAM BOOT TO RIGHT LEG INTACT.
--- NOTE | 2020-12-13 04:55 | NUR ---
RESTED SOUNDLY FROM ABOUT 0130 TO 0430. UP TO THE BATHROOM VIA WHEELCHAIR, GAITBELT, STAND, PIVOT. PAIN MEDICINE GIVEN FOR COMPLAINT OF RIGHT HIP AND BACK PAIN. HOURLY ROUNDING IN PROGRESS.
[2020-12-13 08:00] VITALS: BP 151/78
--- NOTE | 2020-12-13 16:30 | NUR ---
PATIENT ALERT AND ORIENTED X 4. VITAL SIGNS STABLE ON ROOM AIR. UP WITH ONE ASSIST, GAIT BELT, AND WALKER TO THE BATHROOM. UP TO CHAIR FOR MEALS. TOLERATED MORNING AND AFTERNOON THERAPIES. DENIES NAUSEA AT THIS TIME. DENIES THE NEED FOR PAIN MEDICINE AT THIS TIME. FALL PRECAUTIONS IN PLACE AND BED/CHAIR ALARM ON. HOURLY ROUNDS MAINTAINED THROUGHOUT THE SHIFT. CALL LIGHT WITHIN REACH. NURSING WILL CONTINUE TO MONITOR.
[2020-12-13 19:45] VITALS: BP 142/62
[2020-12-14 04:26] LABS: HEMATOCRIT 32.9 % (37.0-47.0); HEMOGLOBIN 10.8 gm/dL (12.0-15.0); MCH 30.2 pg (26.0-34.0); MCHC 32.7 g/dL (28.0-37.0); MCV 92.3 fL (80.0-100.0); MPV 12.5 fl. (7.2-11.1); RBC 3.56 mil/uL (4.20-5.00); RDW-CV 13.1 % (10.5-14.5); WBC 8.5 thou/uL (4.0-11.0)
[2020-12-14 04:43] LABS: CALCIUM 9.1 mg/dL (8.5-10.1); CREATININE 1.4 mg/dL (0.6-1.3)
--- NOTE | 2020-12-14 05:36 | NUR ---
PT IN RECLINER FOR ENTIRE SHIFT, UP TO TOILET WITH GAIT BELT AND WC. PT HAD TWO SMALL BMs. COMPLAINT OF BACK PAIN TREATED WITH TORODOL RESULTED IN LESSENED PAIN. PT HAD PM SNACK AND SLEPT WELL THIS SHIFT.
[2020-12-14 08:27] VITALS: BP 173/77
--- NOTE | 2020-12-14 18:29 | NUR ---
ASSESSMENT COMPLETED DOCUMENTED THIS MORNING. APPROX 0730 PATIENT PUT CALLIGHT ON TO USE THE BR. THIS NURSE WENT IN TO ASSIST PATIENT IN AMBULATING TO THE BR AND SHE STATED "I ALREADY PEED MY PANTS, I AM ALL WET, AND I NEED TO TAKE THE W/C I HAVEN'T BEEN WALKING VERY GOOD." ASSISTED PATIENT UP OUT OF THE CHAIR AND TO THE W/C, NURSING PROVIDED MUCH LIFING TO GET UP WITH USE OF GAIT BELT. WAS THEN TAKEN TO THE BR AND CHANGED CLOTHES, HAD A BOWEL MOVEMENT AND WAS THEN ASSISTED BACK TO W/C AND RECLINER AT THE BEDSIDE. THE DAY PROGRESSED PATIENT AMBULATED FROM RECLINER AT THE BEDSIDE TO THE BR WITH A STEADY GAIT. PATIENT REFUSED HER COLESTYRAMINE POWDER THIS MORNING BUT THEN BEGAN TO C/O DIARRHEA STOOLS THIS AFTERNOON. MORNING DOSE THAT WAS REFUSED WAS GIVEN AT 1414.
--- NOTE | 2020-12-14 18:42 | NUR ---
ORDERS REC'D IN TEAM CONFERENCE TO MAKE PATIENT MOD I IN THE MORNING IF SHE REMAINS STABLE THRU THE NIGHT WITH HER GAIT AND BALANCE.
[2020-12-14 20:00] VITALS: BP 172/85
--- NOTE | 2020-12-14 20:55 | NUR ---
SITTING UP IN RECLNER WATCHING TV. PAIN MEDICATION GIVEN FOR COMPLAINT OF PAIN IN BACK AND RIGHT HIP. AMBULATED TO THE BATHROOM EARLIER WITH ASSIST OF ONE, STAND BY, GAITBELT, WALKER. CAM BOOT TO RIGHT LEG INTACT. SNACK PROVIDED. CALL LIGHT WITHIN REACH.
--- NOTE | 2020-12-15 04:44 | NUR ---
NO FURTHER COMPLAINT OF PAIN. UP TO THE TOILET DURING THE NIGHT TO VOID. HOURLY ROUNDING IN PROGRESS.
[2020-12-15 07:45] VITALS: BP 160/80
--- NOTE | 2020-12-15 13:40 | NUR ---
TEAM CONFRENCE MEETING HELD YESTERDAY. PT INFORMED OF MEETING AND PLAN TO HAVE PT DO A MOD-I TRIAL TODAY AND POSSIBLY D/C SATURDAY PENDING PT'S SAFETY AND MOBILITY WITH TASK. PT IN AGREEMENT WITH THE PLAN. PT PROGRESSING TOWARDS GOALS, BUT BARRIERS ARE BACK PAIN, FETIGUE, SEQUENCING, INSIGHT, AND INCONSISTENCY WITH MOBILITY. PT REQUEST HH WITH [facility] AND CM WILL SEND THIS REFERRAL PRIOR TO D/C WELL PROVIDING PT PAID CAREGIVER INFO. PT HAS ALL NEEDED DME. CM WILL REMAIN AVAILABLE TO ASSIST AND FOLLOW NEEDED.
--- NOTE | 2020-12-15 16:02 | NUR ---
PATIENT COMPLETED THERAPIES ORDERED THIS SHIFT. MOD-I IN ROOM. PATIENT UTILZING WALKER. RIGHT CAMBOOT IN PLACE, MEPILEX PLACED TO RIGHT HEEL PATIENT STATED SHE FELT IF THE BOOT WAS RUBBING; NO OPEN AREAS OR REDNESS NOTED. BM NOTED THIS SHIFT. PATIENT HOPING TO DISCHARGE HOME TOMORROW.
[2020-12-15 20:09] VITALS: BP 155/81
--- NOTE | 2020-12-16 04:11 | NUR ---
ASSUMED PT CARE AT 1930. PT ALERT AND ORIENTED X4, POLITE AND COOPERATIVE WITH CARES. PT SITTING UP IN RECLINER AT SHIFT CHANGE AND PT PREFERS TO SLEEP IN RECLINER OVERNIGHT. PT MOD I IN ROOM. CAM BOOT TO RLE. PAIN MEDICATION AT HS AND BENEDRYL X1 LATER FOR SLEEP. PT TOOK HERSELF TO BATHROOM TO VOID, DOES ALL OWN CARES. PT ANTICIPATING DISCHARGE HOME TODAY. CALL LIGHT IN REACH, HOURLY ROUNDING IN PROGRESS, WILL CONTINUE TO MONITOR.
[2020-12-16 04:52] LABS: CALCIUM 9.4 mg/dL (8.5-10.1); CREATININE 1.3 mg/dL (0.6-1.3)
[2020-12-16 04:54] LABS: HEMATOCRIT 33.5 % (37.0-47.0); HEMOGLOBIN 10.9 gm/dL (12.0-15.0); MCH 30.3 pg (26.0-34.0); MCHC 32.5 g/dL (28.0-37.0); MCV 93.3 fL (80.0-100.0); MPV 12.9 fl. (7.2-11.1); RBC 3.59 mil/uL (4.20-5.00); RDW-CV 12.9 % (10.5-14.5); WBC 10.1 thou/uL (4.0-11.0)
[2020-12-16 08:10] VITALS: BP 169/72
[2020-12-16] MEDS ORDERED: TRAMADOL 50 MG50 MG PO (13:40)
[2020-12-16 13:41] VITALS: BP 169/72
[2020-12-16 14:37] VITALS: BP 169/72
--- NOTE | 2020-12-16 14:38 | NUR ---
[facility] Bedside Assessment: Patient agreed to HH. She is Homebound. We called and made appointment with Dr. Webb at [facility] for next week. Aware she will be called this evening for SOC tomorrow.
--- NOTE | 2020-12-16 15:06 | NUR ---
PATIENT DISCHARGED TO HOME AT THIS TIME WITH FRIEND. VERBALIZES UNDERSTANDING OF PAPERWORK AND SCRIPT. COMPLETED THERAPIES ORDERED. PATIENT TAKEN OUT VIA WHEELCHAIR WITH BELOINGINGS.
--- NOTE | 2020-12-16 15:42 | NUR ---
CM INFORMED THAT PT SUCCRESSFULLY COMPLETED MOD-I TRIAL. PLAN FOR PT TO D/C HOME TODAY WITH HH. CM SPOKE TO PT'S CHOSEN HH [facility] AND THEY ARE UNABLE TO ACCEPT THE PT D/T STAFFING. CM SPOKE TO THE PT TO DISCUSS ALT CHOICE OF HH AND SHE INFORMS THAT SHE HAS NO PREFERENCE AND AGRRES TO [facility]. CM INFORMED [facility] REP OF NEED TO SE PT. PT HAS ALL NEEDED DME, AND FAMILY TO PROVIDE TRANSPORT HOME. CM WILL REMAIN AVAILABLE TO ASSIST AND FOLLOW NEEDED. [facility] PHONE: [phone] FAX: [phone]
== END 2020-12-16 15:07 | disposition home health service (06) | DRG 562 ==
LOC: M.REH 12:12
PROVIDERS: Internal Medicine; ADMIT Physical Medicine & Rehabilitation; ATTEND Physical Medicine & Rehabilitation
PROC: 2W3QX1Z Immobilization of Right Lower Leg using Splint (ICD-10-PCS; principal; 2020-11-27)
DX: S82.64XA Nondisplaced fracture of lateral malleolus of right fibula, initial encounter for closed fracture (principal); N17.0 Acute kidney failure with tubular necrosis; R44.0 Auditory hallucinations; G93.40 Encephalopathy, unspecified; G89.29 Other chronic pain; M54.9 Dorsalgia, unspecified; F32.9 Major depressive disorder, single episode, unspecified; N18.9 Chronic kidney disease, unspecified; M19.90 Unspecified osteoarthritis, unspecified site; K21.9 Gastro-esophageal reflux disease without esophagitis; M10.9 Gout, unspecified; E11.22 Type 2 diabetes mellitus with diabetic chronic kidney disease; I12.9 Hypertensive chronic kidney disease with stage 1 through stage 4 chronic kidney disease, or unspecified chronic kidney disease; E11.319 Type 2 diabetes mellitus with unspecified diabetic retinopathy without macular edema; F41.1 Generalized anxiety disorder; Z96.643 Presence of artificial hip joint, bilateral; E66.9 Obesity, unspecified; T42.6X5A Adverse effect of other antiepileptic and sedative-hypnotic drugs, initial encounter; Y92.89 Other specified places as the place of occurrence of the external cause; Z88.6 Allergy status to analgesic agent; Z88.0 Allergy status to penicillin; Z90.49 Acquired absence of other specified parts of digestive tract; Z86.73 Personal history of transient ischemic attack (TIA), and cerebral infarction without residual deficits; Z98.49 Cataract extraction status, unspecified eye; Z68.32 Body mass index [BMI] 32.0-32.9, adult; Z87.01 Personal history of pneumonia (recurrent)

== ENCOUNTER 2021-05-17 17:42 | Inpatient (IN) | payer MEDICARE, BC ==
[~2021-05-17] VITALS: Ht 167.6 cm; Wt 96.2 kg
[~2021-05-17 17:42] MED LIST changes: +ADDERALL 30 MG30 MG PO; +ANCEF 1GM1 GM/50 M1 IV; +FLEXERIL PO
[2021-05-17 18:11] VITALS: BP 158/78
[2021-05-17 19:53] VITALS: BP 155/76
[2021-05-18 04:11] LABS: HEMOGLOBIN 9.3 gm/dL (12.0-15.0); MCH 29.7 pg (26.0-34.0); MCHC 32.2 g/dL (28.0-37.0); MCV 92.2 fL (80.0-100.0); MPV 10.7 fl. (7.2-11.1); RBC 3.15 mil/uL (4.20-5.00); RDW-CV 13.5 % (10.5-14.5)
[2021-05-18 04:25] LABS: CALCIUM 8.5 mg/dL (8.5-10.1); CREATININE 3.7 mg/dL (0.6-1.3); POTASSIUM 4.7 mmol/L (3.5-5.1)
[2021-05-18 08:00] VITALS: BP 156/74
[2021-05-18 16:49] LABS: URINE BILIRUBIN NEGATIVE (Negative); URINE BLOOD 1+ (Negative); URINE CLARITY CLEAR; URINE COLOR YELLOW; URINE GLUCOSE-RANDOM NEGATIVE (Negative); URINE KETONES NEGATIVE (Negative); URINE LEUKOCYTES NEGATIVE (Negative); URINE NITRITE NEGATIVE (Negative); URINE PROTEIN NEGATIVE (Negative); URINE UROBILINOGEN 0.2 E.U./dl (0.2-1.0)
[2021-05-18 17:03] LABS: MUCUS None Seen strn/LPF (None Seen); SQUAMOUS 0-3 Few /LPF (0-3)
[2021-05-18 17:04] LABS: CASTS None Seen /LPF (None Seen); URINE RBC 0-2 Rare /HPF (0-2)
[2021-05-18 17:06] LABS: CRYSTALS None Seen /LPF (None Seen); URINE WBC 0-5 Rare /HPF (0-5)
[2021-05-18 17:07] LABS: BACTERIA None Seen /HPF (None Seen)
[2021-05-18 20:00] VITALS: BP 168/86
[2021-05-18 21:06] LABS: COMPLEMENT-C4 23 mg/dL (12-38)
[2021-05-19 02:06] LABS: HEPATITIS B SURFACE AG Negative (Negative)
[2021-05-19 04:10] VITALS: BP 136/63
[2021-05-19 05:34] LABS: CALCIUM 8.3 mg/dL (8.5-10.1); CREATININE 3.8 mg/dL (0.6-1.3); POTASSIUM 4.2 mmol/L (3.5-5.1)
[2021-05-19 08:00] VITALS: BP 148/76
[2021-05-19 11:07] LABS: ANTI-DNA SCREEN <1 IU/mL (0-9); ANTI-RNP 0.2 AI (0.0-0.9); ANTI-SSA <0.2 AI (0.0-0.9); ANTIJO-I AB <0.2 AI (0.0-0.9)
[2021-05-19 19:58] VITALS: BP 179/85
[2021-05-20 04:43] LABS: CALCIUM 7.8 mg/dL (8.5-10.1); CREATININE 3.9 mg/dL (0.6-1.3); POTASSIUM 5.1 mmol/L (3.5-5.1)
[2021-05-20 04:53] LABS: ABSOLUTE BASOPHILS 0.1 thou/uL (0.0-0.2); ABSOLUTE EOSINOPHILS 0.4 thou/uL (0.0-0.7); ABSOLUTE LYMPHOCYTES 1.8 thou/uL (0.8-5.3); ABSOLUTE MONOCYTES 0.8 thou/uL (0.0-1.2); ABSOLUTE NEUTROPHILS 6.5 thou/uL (1.6-8.1); BASOPHILS 0.7 %; EOSINOPHILS 4.1 %; HEMATOCRIT 26.1 % (37.0-47.0); HEMOGLOBIN 8.5 gm/dL (12.0-15.0); LYMPHOCYTES 18.8 %; MCH 29.6 pg (26.0-34.0); MCHC 32.5 g/dL (28.0-37.0); MONOCYTES 8.5 %; MPV 11.4 fl. (7.2-11.1); NUCLEATED RBCS 0 /100WBC; PLATELET COUNT* 211 thou/uL (150-400); POLYS 67.9 %; RBC 2.87 mil/uL (4.20-5.00); RDW-CV 13.7 % (10.5-14.5); WBC 9.6 thou/uL (4.0-11.0)
[2021-05-20 08:07] VITALS: BP 147/71
[2021-05-20 19:00] VITALS: BP 140/52
[2021-05-21 07:45] VITALS: BP 155/78
[2021-05-21 12:00] LABS: CALCIUM 8.1 mg/dL (8.5-10.1); CREATININE 3.8 mg/dL (0.6-1.3); POTASSIUM 5.4 mmol/L (3.5-5.1)
[2021-05-21 20:00] VITALS: BP 163/85
[2021-05-22 04:37] LABS: HEMATOCRIT 25.6 % (37.0-47.0); HEMOGLOBIN 8.4 gm/dL (12.0-15.0); MCH 30.3 pg (26.0-34.0); MCHC 32.7 g/dL (28.0-37.0); MCV 92.6 fL (80.0-100.0); MPV 11.3 fl. (7.2-11.1); RBC 2.77 mil/uL (4.20-5.00); RDW-CV 13.6 % (10.5-14.5); WBC 7.8 thou/uL (4.0-11.0)
[2021-05-22 05:01] LABS: ALBUMIN 2.1 g/dL (3.4-5.0); CALCIUM 7.8 mg/dL (8.5-10.1); CREATININE 3.9 mg/dL (0.6-1.3); MAGNESIUM 1.6 mg/dL (1.8-2.4); POTASSIUM 4.9 mmol/L (3.5-5.1); TOTAL BILIRUBIN 0.3 mg/dL (<0.1-1.0); TOTAL PROTEIN 6.8 g/dL (6.4-8.2)
[2021-05-22 08:00] VITALS: BP 176/86
[2021-05-22 11:07] LABS: GLOMERULR BASEM MEMBRN AB 3 units (0-20)
[2021-05-22 20:00] VITALS: BP 183/89
[2021-05-23 05:48] LABS: CREATININE 3.6 mg/dL (0.6-1.3); POTASSIUM 4.4 mmol/L (3.5-5.1)
[2021-05-23 07:55] VITALS: BP 168/81
[2021-05-23 16:00] VITALS: BP 107/63
[2021-05-23 19:00] VITALS: BP 172/84
[2021-05-24 05:25] LABS: HEMATOCRIT 26.2 % (37.0-47.0); HEMOGLOBIN 8.5 gm/dL (12.0-15.0); MCH 29.8 pg (26.0-34.0); MCHC 32.4 g/dL (28.0-37.0); MCV 92.1 fL (80.0-100.0); MPV 12.3 fl. (7.2-11.1); RBC 2.84 mil/uL (4.20-5.00); RDW-CV 13.4 % (10.5-14.5); WBC 7.6 thou/uL (4.0-11.0)
[2021-05-24 05:42] LABS: CALCIUM 8.2 mg/dL (8.5-10.1); CREATININE 3.3 mg/dL (0.6-1.3); POTASSIUM 4.3 mmol/L (3.5-5.1)
[2021-05-24 19:00] VITALS: BP 175/95
[2021-05-25 08:00] VITALS: BP 177/93
[2021-05-25 19:55] VITALS: BP 179/84
[2021-05-26 08:05] VITALS: BP 149/78
[2021-05-26 13:13] LABS: CALCIUM 8.6 mg/dL (8.5-10.1); CREATININE 3.2 mg/dL (0.6-1.3); POTASSIUM 4.7 mmol/L (3.5-5.1)
[2021-05-26 19:45] VITALS: BP 171/90
[2021-05-27 07:30] VITALS: BP 179/87
[2021-05-27 14:00] VITALS: BP 169/84
[2021-05-27 19:25] VITALS: BP 160/91
[2021-05-28 07:20] VITALS: BP 184/90
[2021-05-28 20:00] VITALS: BP 164/84
[2021-05-29 06:15] VITALS: BP 160/76
[2021-05-29 07:46] VITALS: BP 174/88
[2021-05-29 20:00] VITALS: BP 170/87
[2021-05-30 08:17] VITALS: BP 162/80
[2021-05-30 19:00] VITALS: BP 175/77
[2021-05-31 05:56] LABS: MCH 30.2 pg (26.0-34.0); MCHC 33.3 g/dL (28.0-37.0); MCV 90.7 fL (80.0-100.0); MPV 12.7 fl. (7.2-11.1); RBC 2.64 mil/uL (4.20-5.00); RDW-CV 14.1 % (10.5-14.5); WBC 7.9 thou/uL (4.0-11.0)
[2021-05-31 06:12] LABS: CALCIUM 8.7 mg/dL (8.5-10.1); CREATININE 2.8 mg/dL (0.6-1.3); POTASSIUM 4.2 mmol/L (3.5-5.1)
[2021-05-31 06:18] VITALS: BP 158/91
[2021-05-31 08:04] VITALS: BP 148/76
[2021-05-31 19:30] VITALS: BP 144/75
[2021-06-01 06:41] VITALS: BP 151/77
[2021-06-01 07:30] VITALS: BP 148/74
[2021-06-01 19:30] VITALS: BP 155/76
[2021-06-02 02:06] LABS: GLYCOHEMOGLOBIN (HGB A1C) 7.4 % (4.8-5.6)
[2021-06-02 05:27] VITALS: BP 167/80
[2021-06-02 07:50] VITALS: BP 153/80
[2021-06-02 20:00] VITALS: BP 149/80
[2021-06-03 05:28] LABS: CALCIUM 8.5 mg/dL (8.5-10.1); CREATININE 2.9 mg/dL (0.6-1.3); POTASSIUM 4.1 mmol/L (3.5-5.1)
[2021-06-03 07:30] VITALS: BP 141/71
[2021-06-03 19:00] VITALS: BP 145/70
[2021-06-04 07:30] VITALS: BP 146/68
[2021-06-04 20:00] VITALS: BP 147/77
[2021-06-05 06:31] VITALS: BP 158/82
[2021-06-05 07:30] VITALS: BP 150/77
[2021-06-05 19:00] VITALS: BP 145/73
[2021-06-06 06:30] VITALS: BP 149/78
[2021-06-06 08:00] VITALS: BP 138/69
[2021-06-06 19:00] VITALS: BP 156/78
[2021-06-07 05:13] LABS: CALCIUM 8.5 mg/dL (8.5-10.1); CREATININE 2.4 mg/dL (0.6-1.3); POTASSIUM 4.4 mmol/L (3.5-5.1)
[2021-06-07 06:09] LABS: HEMATOCRIT 24.5 % (37.0-47.0); MCH 29.8 pg (26.0-34.0); MCHC 32.7 g/dL (28.0-37.0); MCV 91.3 fL (80.0-100.0); RBC 2.69 mil/uL (4.20-5.00); WBC 6.4 thou/uL (4.0-11.0)
[2021-06-07 06:24] VITALS: BP 153/75
[2021-06-07 08:00] VITALS: BP 161/81
[2021-06-07 19:00] VITALS: BP 140/77
[2021-06-08 06:16] VITALS: BP 171/86
[2021-06-08 07:51] VITALS: BP 161/83
[2021-06-08 20:07] VITALS: BP 135/78
[2021-06-09 05:58] VITALS: BP 142/78
[2021-06-09 07:46] VITALS: BP 137/70
[2021-06-09] MEDS ORDERED: HUMALOG100 UNIT/1 SUBQ (11:01)
[2021-06-09] MEDS ORDERED: LANTUS SUBQ (11:10)
[2021-06-09] MEDS ORDERED: MILK OF MA400 MG/5 M PO (11:12)
[2021-06-09] MEDS ORDERED: NYSTATIN1 EAC2 TOP (11:16)
[2021-06-09] MEDS ORDERED: MYLANTA MAXIMU355 ML PO (11:20)
[2021-06-09] MEDS ORDERED: NORVASC5 MG PO (11:23)
[2021-06-09] MEDS ORDERED: PROTONIX40 M2 PO (11:25)
[2021-06-09] MEDS ORDERED: TYLENOL PO (11:30)
[2021-06-09 11:31] VITALS: BP 137/70
[2021-06-09] MEDS ORDERED: BENEDRYL PO (12:05)
[2021-06-09] MEDS ORDERED: LISINOPRIL10 MG PO (12:55)
== END 2021-06-09 15:28 | DRG 947 ==
LOC: M.REH 17:42
PROVIDERS: Family Medicine; Internal Medicine; Internal Medicine Nephrology; ADMIT Physical Medicine & Rehabilitation; ATTEND Physical Medicine & Rehabilitation
DX: R53.81 Other malaise (principal); A41.01 Sepsis due to Methicillin susceptible Staphylococcus aureus; J15.6 Pneumonia due to other Gram-negative bacteria; N17.9 Acute kidney failure, unspecified; R53.1 Weakness; F41.9 Anxiety disorder, unspecified; F32.9 Major depressive disorder, single episode, unspecified; E11.9 Type 2 diabetes mellitus without complications; M19.90 Unspecified osteoarthritis, unspecified site; F90.9 Attention-deficit hyperactivity disorder, unspecified type; R26.9 Unspecified abnormalities of gait and mobility; Z74.09 Other reduced mobility; Z88.0 Allergy status to penicillin; Z88.8 Allergy status to other drugs, medicaments and biological substances; E78.5 Hyperlipidemia, unspecified; K21.9 Gastro-esophageal reflux disease without esophagitis; Z90.49 Acquired absence of other specified parts of digestive tract; D64.9 Anemia, unspecified; M10.9 Gout, unspecified; W18.39XA Other fall on same level, initial encounter; Y93.89 Activity, other specified; Y92.89 Other specified places as the place of occurrence of the external cause; Y99.8 Other external cause status; R19.7 Diarrhea, unspecified; Z20.822 Contact with and (suspected) exposure to COVID-19

== ENCOUNTER 2021-08-29 17:50 | Inpatient (IN) | payer MEDICARE, BC ==
[~2021-08-29] VITALS: Ht 167.6 cm; Wt 89.8 kg
[~2021-08-29 17:50] MED LIST changes: +BENEDRYL PO; +HUMALOG100 UNIT/1 SUBQ; +LANTUS SUBQ; +MILK OF MA400 MG/5 M PO; +MYLANTA MAXIMU355 ML PO; +NORVASC5 MG PO; +NYSTATIN1 EAC2 TOP; +PROTONIX40 M2 PO; +TYLENOL PO
[2021-08-29 17:51] VITALS: BP 165/84
[2021-08-29 22:40] LABS: ABSOLUTE BASOPHILS 0.1 thou/uL (0.0-0.2); ABSOLUTE EOSINOPHILS 0.1 thou/uL (0.0-0.7); ABSOLUTE LYMPHOCYTES 2.6 thou/uL (0.8-5.3); ABSOLUTE MONOCYTES 0.8 thou/uL (0.0-1.2); ABSOLUTE NEUTROPHILS 7.7 thou/uL (1.6-8.1); BASOPHILS 0.6 %; EOSINOPHILS 1.2 %; HEMATOCRIT 30.8 % (37.0-47.0); HEMOGLOBIN 9.9 gm/dL (12.0-15.0); LYMPHOCYTES 22.6 %; MCH 29.7 pg (26.0-34.0); MCHC 32.3 g/dL (28.0-37.0); MONOCYTES 7.2 %; NUCLEATED RBCS 0 /100WBC; PLATELET COUNT* 184 thou/uL (150-400); POLYS 68.4 %; RBC 3.35 mil/uL (4.20-5.00); RDW-CV 13.4 % (10.5-14.5); WBC 11.3 thou/uL (4.0-11.0)
[2021-08-29 22:47] LABS: CALCIUM 9.1 mg/dL (8.5-10.1); CREATININE 1.9 mg/dL (0.6-1.3); POTASSIUM 4.7 mmol/L (3.5-5.1)
[2021-08-29 22:51] LABS: ALBUMIN 3.2 g/dL (3.4-5.0); MAGNESIUM 2.1 mg/dL (1.8-2.4); TOTAL BILIRUBIN 0.3 mg/dL (<0.1-1.0); TOTAL PROTEIN 8.4 g/dL (6.4-8.2)
[2021-08-30 03:11] LABS: URINE BILIRUBIN NEGATIVE (Negative); URINE BLOOD TRACE (Negative); URINE CLARITY CLEAR; URINE COLOR YELLOW; URINE GLUCOSE-RANDOM NEGATIVE (Negative); URINE KETONES NEGATIVE (Negative); URINE LEUKOCYTES-REFLEX 1+ (Negative); URINE NITRITE-REFLEX POSITIVE (Negative); URINE PROTEIN 1+ (Negative); URINE SPECIFIC GRAVITY 1.015 (1.005-1.030); URINE UROBILINOGEN 0.2 E.U./dl (0.2-1.0)
[2021-08-30 03:44] LABS: SQUAMOUS 0-3 Few /LPF (0-3)
[2021-08-30 03:45] LABS: CASTS None Seen /LPF (None Seen); URINE WBC-REFLEX >25 Many /HPF (0-5)
[2021-08-30 03:46] LABS: CRYSTALS None Seen /LPF (None Seen); URINE RBC 3-10 Few /HPF (0-2)
[2021-08-30 04:07] VITALS: BP 143/68
[2021-08-30 08:00] VITALS: BP 144/67
--- NOTE | 2021-08-30 09:03 | EKG ---
[place] [address] ELECTROCARDIOGRAM REPORT Name: VIKRAM ELIAS [address] [id number] Admission: 08/29/21 Attend Phys: Dillon Gallagher Discharge: Date of : 50 Date of Service: 08/29/21 2302 Report #: [id number] THIS REPORT FOR: //name// [facility] ED Test Date: 2021-08-29 Test Time: 23:02:05 Pat Name: VIKRAM ELIAS Department: Room: [facility] Gender: F Marketing Officer: : 1950 Requested By: Debby White Order Number: [id number] MD: Ortiz Avila Measurements Intervals [place] Rate: 89 P: 33 SC: 173 QRS: -28 QRSD: 99 T: 74 QT: 369 QTc: 449 Interpretive Statements Sinus rhythm Atrial premature complex Borderline left axis deviation Low voltage, precordial leads Compared to ECG 05/09/2021 07:21:39 Possible ischemia no longer present Electronically Signed On 08-30-2021 9:03:26 QUILTER FIXER by Ortiz Avila [email or web address] <ELECTRONICALLY SIGNED> By: Ortiz Avila MD, FACC 08/30/21902 01 01 Ortiz Avila MD, FAC /EPI
--- NOTE | 2021-08-30 09:04 | EKG ---
[place] [address] ELECTROCARDIOGRAM REPORT Name: VIKRAM ELIAS [address] [id number] Admission: 08/29/21 Attend Phys: Dillon Gallagher Discharge: Date of : 50 Date of Service: 08/30/21 0540 Report #: [id number] THIS REPORT FOR: //name// [facility] ED Test Date: 2021-08-30 Test Time: 05:40:31 Pat Name: VIKRAM ELIAS Department: Room: [place] [address] Gender: F It Director: : 1950 Requested By: Debby White Order Number: [id number] MD: Ortiz Avila Measurements Intervals [place] Rate: 85 P: 57 MO: 168 QRS: -21 QRSD: 90 T: 94 QT: 398 QTc: 474 Interpretive Statements Sinus rhythm Atrial premature complex Borderline left axis deviation Low voltage, precordial leads Nonspecific T abnormalities, lateral leads Compared to ECG 08/29/2021 23:02:05 no change Electronically Signed On 08-30-2021 9:04:13 ACTIVITIES LEADER by Ortiz Avila [email or web address] <ELECTRONICALLY SIGNED> By: Ortiz Avila MD, FACC 08/30/2104 Ortiz Avila MD, FACC /EPI
--- NOTE | 2021-08-30 09:21 | NUR ---
Pt was admitted on 08/29/21 after a fall at home. She was just discharged from [facility] earlier that day as she thought she would be able to function fine at home but fell after ambulating to the bathroom attempting to get up. Pt is alert and oriented. Pt lives alone in her home. She reports after her spouse passed in 2018 she feels like she has fallen apart. She fell in 10/12 sustating a left tib/fib fx and went to [facility] then transferred to [facility] (SNF) . She fell again in 11/2020 and sustained a Right Ankle fx, and dicharged to [facility] Pt has a hx of [facility] and [facility]. Pt reports she has a walker and wheelchair. Pt is alert and oriented x3. Pt is requesting we refer her back to [facility] Will inquire as to how many SNF days patient has left. She reports her secondary insurance - [employer] pays for her co-pay days. Will see if therapy needs to be ordered since she was just at [facility] CM to follow for discharge planning.
[2021-08-30 11:44] VITALS: BP 161/81
[2021-08-30 15:45] VITALS: BP 153/77
[2021-08-30] MEDS ORDERED: VITAMIN D3250 MC1 PO (16:09)
[2021-08-30] MEDS ORDERED: VITAMIN B122500 MCG PO (16:09)
[2021-08-30 17:50] VITALS: BP 153/77
--- NOTE | 2021-08-30 18:20 | NUR ---
PT SETTLED INTO ROOM 230 FROM ED. REPORTING PAIN IN BILAT HIPS. OXYCODONE GIVEN. NO OTHER REPORST AT THIS TIME. TELE MONITOR APPLIED.
[2021-08-30 20:00] VITALS: BP 162/75
[2021-08-31 00:30] VITALS: BP 165/67
[2021-08-31 04:21] VITALS: BP 179/79
[2021-08-31 09:00] VITALS: BP 126/68
[2021-08-31 10:33] LABS: ABSOLUTE EOSINOPHILS 0.1 thou/uL (0.0-0.7); ABSOLUTE LYMPHOCYTES 1.2 thou/uL (0.8-5.3); ABSOLUTE MONOCYTES 0.8 thou/uL (0.0-1.2); BASOPHILS 0.5 %; EOSINOPHILS 1.5 %; HEMATOCRIT 33.3 % (37.0-47.0); HEMOGLOBIN 10.8 gm/dL (12.0-15.0); LYMPHOCYTES 13.5 %; MCH 29.8 pg (26.0-34.0); MCHC 32.3 g/dL (28.0-37.0); MCV 92.2 fL (80.0-100.0); MONOCYTES 8.6 %; MPV 11.4 fl. (7.2-11.1); NUCLEATED RBCS 0 /100WBC; PLATELET COUNT* 174 thou/uL (150-400); POLYS 75.9 %; RBC 3.61 mil/uL (4.20-5.00); RDW-CV 13.3 % (10.5-14.5); WBC 9.2 thou/uL (4.0-11.0)
[2021-08-31 10:58] LABS: ANION GAP 8 mmol/L (7-16); BUN 24 mg/dL (7-18); CALCIUM 9.6 mg/dL (8.5-10.1); CHLORIDE 105 mmol/L (98-107); CHOLESTEROL 164 mg/dL (<200); CO2 26 mmol/L (21-32); CREATININE 1.5 mg/dL (0.6-1.3); GLUCOSE 180 mg/dL (70-99); HDL CHOLESTEROL 73 mg/dL (>40); LDL CHOLESTEROL 73 mg/dL (<100); MAGNESIUM 1.8 mg/dL (1.8-2.4); POTASSIUM 4.7 mmol/L (3.5-5.1); SODIUM 139 mmol/L (136-145); TC:HDL 2.2 Ratio (Not establshd); TRIGLYCERIDE 90 mg/dL (<150); VLDL 18 mg/dL (<40)
[2021-08-31 10:59] LABS: SERUM ASSESSMENT Clear
[2021-08-31 12:55] VITALS: BP 142/91
[2021-08-31] MEDS ORDERED: LEVOFLOXACIN500 MG PO (14:56)
[2021-08-31 18:18] VITALS: BP 126/65
[2021-08-31 19:56] VITALS: BP 121/62
[2021-09-01 00:40] VITALS: BP 114/69
[2021-09-01 04:12] VITALS: BP 145/67
[2021-09-01 07:09] LABS: GLYCOHEMOGLOBIN (HGB A1C) 6.3 % (4.8-5.6)
[2021-09-01 08:00] VITALS: BP 142/65
--- NOTE | 2021-09-01 10:20 | NUR ---
PLAN OF CARE: PLAN FOR THE PT TO D/C TO SNF AT [facility] WHEN MEDICALLY STABLE. INSURANCE AUTH OBTAINED AND FACILITY ABLE TO ACCEPT PT. CM WILL REMAIN AVAILABLE TO ASSIST AND FOLLOW NEEDED.
[2021-09-01 14:11] VITALS: BP 122/70
== END 2021-09-01 18:33 | DRG 682 ==
LOC: M.ERS 17:50 → M.TBA-ER 23:53 → M.2W 08-30 12:22 → M.TBA-ER 08-30 12:22 → M.2W 08-30 18:04
PROVIDERS: Emergency Medicine; Internal Medicine; ADMIT Internal Medicine; ATTEND Internal Medicine
DX: N17.9 Acute kidney failure, unspecified (principal); R65.11 Systemic inflammatory response syndrome (SIRS) of non-infectious origin with acute organ dysfunction; N39.0 Urinary tract infection, site not specified; L03.90 Cellulitis, unspecified; M19.90 Unspecified osteoarthritis, unspecified site; E11.9 Type 2 diabetes mellitus without complications; I10 Essential (primary) hypertension; H35.00 Unspecified background retinopathy; K21.9 Gastro-esophageal reflux disease without esophagitis; R53.81 Other malaise; M10.9 Gout, unspecified; Z96.641 Presence of right artificial hip joint; Z20.822 Contact with and (suspected) exposure to COVID-19; F32.9 Major depressive disorder, single episode, unspecified; E78.5 Hyperlipidemia, unspecified; Z90.49 Acquired absence of other specified parts of digestive tract; Z86.73 Personal history of transient ischemic attack (TIA), and cerebral infarction without residual deficits; Z88.6 Allergy status to analgesic agent; Z98.49 Cataract extraction status, unspecified eye; Z88.0 Allergy status to penicillin; Z88.8 Allergy status to other drugs, medicaments and biological substances

== ENCOUNTER 2021-10-12 12:20 | Inpatient (IN) | payer MEDICARE, BC ==
[~2021-10-12] VITALS: Ht 170.2 cm; Wt 91.6 kg
--- NOTE | ~2021-10-12 | EMS ---
[facility] [address] [place] [address] EMS Patient Care Report Name: VIKRAM ELIAS Room: [address] IN [facility]#: [id number] Admission: 10/12/21 Attend Phys: Fabiola Tomlinson MD Discharge: Date of : 50 Report #: [id number] THIS REPORT FOR: //name// Report Transmitted: 10/13/2021 14:56 EMS Care Summary [facility] [employer] [facility] Incident [phone] @ 10/12/2021 11:37 Incident Location [address] [place] [address] Patient VIKRAM ELIAS Female, 71 Years 1950 Patient Address [address] [place] [address] Patient History Diabetes,Atrial Fibrillation, Patient Allergies No known allergies, Patient Medications Unknown, Chief Complaint weakness Disposition Transported No Lights/[place] Dispatch Reason Sick Person Transported To [facility] Narrative Dispatched to a residence for 71y/o female who is sick. Upon arrival pt. was A&Ox4, sitting in a chair. Pt. skin was pale which is said to be normal for pt. lately. Pt. has 24hr history of increased weakness and 4 falls from standing with no injury in the last 24hrs. Pt. also c/o general, non specific ABD pain. [address] [address] EMS Patient Care Report Name: VIKRAM ELIAS Room: [address] IN [facility]#: [id number] Admission: 10/12/21 Attend Phys: Fabiola Tomlinson MD Discharge: Date of : 50 Report #: [id number] unable to pinpoint pain with palpation. Pt. rates her pain 8/10 but appears to have little distress. Pt. refused to allow IV attempt during transport. VS were stable, BG was 318. Pt. was transported to [place] for emergency services. Initial Vitals @11:50P: 80,R: 18,BP: 150/68,Pain: 8/10,GCS: 15,Glucose: 318,SpO2: 95,Revised Trauma: 12, @12:05P: 60,R: 18,BP: 153/80,GCS: 15,SpO2: 96,Revised Trauma: 12, Impression Generalized Weakness Timeline 11:36,Call Received 11:37,Dispatched 11:40,En Route 11:43,Initial Responder On Scene 11:43,On Scene 11:44,At Patient 11:50,BP: 150/68 M,PULSE: 80,RR: 18 R,SPO2: 95 Ox,ETCO2: ,B,PAIN: 8,GCS: 15, 11:57,Depart Scene 12:05,BP: 153/80 M,PULSE: 60,RR: 18 R,SPO2: 96 Ox,ETCO2: ,BG: ,PAIN: ,GCS: 15, 12:17,At Destination 12:19,Transfer Patient 12:32,Call Closed 12:47,In District Disclaimer v1.1 Copyright 2021 [employer] This EMS Care Summary contains data elements from the applicable legal record (which may be displayed differently). It is designed to provide pertinent information for the following purposes: continuity of care, clinical quality, and state data reporting. The complete legal record is available to ED staff and administrators of the receiving hospital in [employer] Patient Tracker. All data is provided "as is."
[~2021-10-12 12:20] MED LIST changes: +LEVOFLOXACIN500 MG PO; +VITAMIN B122500 MCG PO; +VITAMIN D3250 MC1 PO
[2021-10-12 12:29] VITALS: BP 169/75
[2021-10-12 12:56] LABS: ABSOLUTE BASOPHILS 0.1 thou/uL (0.0-0.2); ABSOLUTE LYMPHOCYTES 1.9 thou/uL (0.8-5.3); ABSOLUTE MONOCYTES 1.2 thou/uL (0.0-1.2); ABSOLUTE NEUTROPHILS 8.5 thou/uL (1.6-8.1); BASOPHILS 0.8 %; EOSINOPHILS 0.2 %; HEMATOCRIT 32.8 % (37.0-47.0); HEMOGLOBIN 10.7 gm/dL (12.0-15.0); LYMPHOCYTES 16.3 %; MCH 29.4 pg (26.0-34.0); MCHC 32.7 g/dL (28.0-37.0); MPV 12.6 fl. (7.2-11.1); NUCLEATED RBCS 0 /100WBC; PLATELET COUNT* 151 thou/uL (150-400); POLYS 72.7 %; RBC 3.64 mil/uL (4.20-5.00); RDW-CV 13.8 % (10.5-14.5); WBC 11.6 thou/uL (4.0-11.0)
[2021-10-12 13:25] LABS: CALCIUM 8.1 mg/dL (8.5-10.1); CREATININE 1.8 mg/dL (0.6-1.3); POTASSIUM 3.3 mmol/L (3.5-5.1)
[2021-10-12 13:36] LABS: ALBUMIN 2.8 g/dL (3.4-5.0); TOTAL BILIRUBIN 0.5 mg/dL (<0.1-1.0)
[2021-10-12 14:03] LABS: URINE BILIRUBIN NEGATIVE (Negative); URINE BLOOD 1+ (Negative); URINE CLARITY CLEAR; URINE COLOR YELLOW; URINE GLUCOSE-RANDOM 3+ (Negative); URINE KETONES NEGATIVE (Negative); URINE LEUKOCYTES-REFLEX 1+ (Negative); URINE NITRITE-REFLEX NEGATIVE (Negative); URINE PROTEIN TRACE (Negative); URINE UROBILINOGEN 0.2 E.U./dl (0.2-1.0)
--- NOTE | 2021-10-12 14:06 | EKG ---
[place] [address] ELECTROCARDIOGRAM REPORT Name: VIKRAM ELIAS Room: [facility]#: [id number] Admission: 10/12/21 Attend Phys: Discharge: Date of : 50 Date of Service: 10/12/21 1254 Report #: [id number] THIS REPORT FOR: //name// [facility] ED Test Date: 2021-10-12 Test Time: 12:54:21 Pat Name: VIKRAM ELIAS Department: Room: Gender: Community Center Director: : 1950 Requested By: Ashlee Esposito Order Number: [id number] MD: Ortiz Avila Measurements Intervals [place] Rate: 99 P: 41 CO: 132 QRS: -26 QRSD: 92 T: 102 QT: 349 QTc: 448 Interpretive Statements Sinus tachycardia Multiple premature complexes, supraven Borderline left axis deviation Anteroseptal infarct, age indeterminate Compared to ECG 08/30/2021 05:40:31 Myocardial infarct finding now present Sinus rhythm no longer present Electronically Signed On 10-12-2021 14:06:32 SENIOR SYSTEMS ANALYST by Ortiz Avila [email or web address] <ELECTRONICALLY SIGNED> By: Ortiz vAila MD, [facility] 10/12/21 1406 1254 1254 Ortiz Avila MD, [facility] /EPI
[2021-10-12 14:11] LABS: CASTS None Seen /LPF (None Seen); SQUAMOUS NONE SEEN /LPF (0-3)
[2021-10-12 14:12] LABS: BACTERIA-REFLEX >30 Many /HPF (None Seen); CRYSTALS None Seen /LPF (None Seen); URINE RBC 3-10 Few /HPF (0-2)
[2021-10-12 20:00] VITALS: BP 103/67
[2021-10-13] VITALS (7 sets, daily range): BP systolic 129–174; BP diastolic 59–75
[2021-10-13 08:08] LABS: HEMOGLOBIN 9.4 gm/dL (12.0-15.0); MCH 29.8 pg (26.0-34.0); MCHC 32.5 g/dL (28.0-37.0); MCV 91.7 fL (80.0-100.0); MPV 12.5 fl. (7.2-11.1); RBC 3.16 mil/uL (4.20-5.00); RDW-CV 14.2 % (10.5-14.5); WBC 9.6 thou/uL (4.0-11.0)
[2021-10-13 08:21] LABS: ALBUMIN 2.4 g/dL (3.4-5.0); CALCIUM 7.9 mg/dL (8.5-10.1); CREATININE 1.6 mg/dL (0.6-1.3); MAGNESIUM 1.5 mg/dL (1.8-2.4); POTASSIUM 3.5 mmol/L (3.5-5.1); TOTAL BILIRUBIN 0.7 mg/dL (<0.1-1.0); TOTAL PROTEIN 6.9 g/dL (6.4-8.2)
--- NOTE | 2021-10-13 10:03 | EKG ---
[place] [address] ELECTROCARDIOGRAM REPORT Name: VIKRAM ELIAS Room: [address] IN .R.#: [id number] Admission: 10/12/21 Attend Phys: Fabiola Tomlinson, Discharge: Date of : 50 Date of Service: 10/13/21 0439 Report #: [id number] THIS REPORT FOR: //name// [facility] Test Date: 2021-10-13 Test Time: 04:39:43 Pat Name: VIKRAM ELIAS Department: Room: [address] Gender: F Library Technical Assistant: [facility] : 1950 Requested By: Fabiola Tomlinson Order Number: [id number] MD: Ortiz Avila Measurements Intervals [place] Rate: 77 P: 16 MA: 154 QRS: -26 QRSD: 91 T: 58 QT: 404 QTc: 458 Interpretive Statements Sinus rhythm Supraventricular bigeminy Borderline left axis deviation Abnormal R-wave progression, late transition Compared to ECG 10/12/2021 12:54:21 Sinus tachycardia no longer present Myocardial infarct finding no longer present Electronically Signed On 10-13-2021 10:03:13 CAB WORKER by Ortiz Avila [email or web address] <ELECTRONICALLY SIGNED> By: Ortiz Avila MD, FACC 10/13/21 1003 0439 0439 Ortiz Avila MD, [facility] /EPI
--- NOTE | 2021-10-13 16:28 | CON ---
[address] [address] CONSULTATION Name: VIKRAM ELIAS Gaby Room: [address] IN [place].#: [id number] Admission: 10/12/21 Attend Phys: Fabiola Tomlinson MD Discharge: Date of : 50 Report #: [id number] THIS REPORT FOR: cc: Amish Clemens James DO Blick, David R. MD [facility] ~ cc: Emeterio Webb DO DATE OF CONSULTATION: 10/13/2021 CARDIOLOGY CONSULTATION HISTORY OF PRESENT ILLNESS: The patient is a 71-year-old single white female who I was asked to see in the hospital today after she complained of being weak. The patient has no previous history of heart disease. She is not very active at this time and is primarily in a wheelchair. She has a long history of diabetes and was diagnosed with neuropathy in the past. She was admitted here in 08/2021 after she fell. She was debilitated. She had a urinary tract infection. She was discharged with home health. The patient denies any recent chest pain, shortness of breath, palpitations. She primarily is in a wheelchair. She lives with a friend. She was brought to the Emergency Room yesterday morning by ambulance. She complained of feeling weak. She fell in and out of the wheelchair. She has been in a shelter unit in the past. Cardiology consultation requested. She complains of being weak with no appetite, but denies any vomiting, diarrhea or bleeding. PAST MEDICAL HISTORY: She had tonsillectomy, bilateral hip surgery, appendectomy, back surgery. She has a history of retinopathy, neuropathy. She has diabetes, hypertension, hyperlipidemia, history of anxiety. She is followed by Psychiatry. MEDICATIONS: On admission included Neurontin, insulin, amlodipine, lisinopril, simvastatin, Januvia, omeprazole, Cymbalta, Ambien, tramadol. ALLERGIES: SHE HAS AN INTOLERANCE TO MORPHINE AND PENICILLIN. FAMILY HISTORY: Her brother had bypass surgery. SOCIAL HISTORY: She is , lives with a friend in [place], [place]. No smoking. Rarely drinks alcohol. REVIEW OF SYSTEMS: She apparently has had previous history of a TIA. She has macular degeneration. No history of asthma, liver disease. She has chronic kidney disease. No cancer. She has a history of anxiety, [place] [address] CONSULTATION Name: VIKRAM ELIAS Gaby Room: [address]#: [id number] Admission: 10/12/21 Attend Phys: Fabiola Tomlinson MD Discharge: Date of : 50 Report #: [id number] PHYSICAL EXAMINATION: GENERAL: Revealed an elderly, frail-appearing female, lying in bed. She appeared in no distress. VITAL SIGNS: She had a blood pressure of 130/70, pulse 80. She is afebrile. HEENT: She was anicteric. Conjunctivae are pink. Mucous members appear dry. NECK: Veins do not appear distended. No carotid bruits. CHEST: Clear to auscultation. HEART: Regular rate and rhythm. ABDOMEN: Obese. EXTREMITIES: Had no pitting edema. Dorsalis pedis pulse 1+ bilaterally. SKIN: Cool and dry. NEUROLOGIC: Nonfocal. DIAGNOSTIC DATA: Her ECG on admission showed sinus rhythm, occasional PAC, septal Q-waves, nonspecific ST and T-wave changes. Her workup, she had an echocardiogram performed last April here at [facility] that showed ejection fraction of 60%, left atrial enlargement, aortic sclerosis. There was a minimal gradient across the aortic valve of 17 mmHg consistent with mild aortic stenosis. She actually had a KRIS last April showed she has bacteremia, but no vegetations were noted. The patient actually had a nuclear stress test in 2019 here at [facility] after an episode of chest pain and it was performed using Lexiscan that showed apical thinning, but no evidence of ischemia and there appeared to be normal left ventricular function. Her workup in the Emergency Room yesterday, she had a CT scan of the head that showed no acute abnormality. Chest x-ray, normal heart size, mild interstitial edema. LABORATORY DATA: Her lab work, creatinine is 1.6, it has been as high as 3.9 in the past. Her liver function studies were normal. Albumin 2.4. High sensitivity troponin was 142. BNP 2980. Her hemoglobin was 9.4, it has been as low as 8.4 last year. IMPRESSION AND RECOMMENDATIONS: 1. Borderline troponin. No history of angina. Previous stress test showed no ischemia. Suspect noncardiac. Recommend no further cardiac evaluation. 2. Mild aortic stenosis. 3. Hypertension. The patient is on a calcium elvi. 4. Diabetes. 5. Hyperlipidemia. The patient is on a statin drug. 6. Neuropathy. 7. Macular degeneration. 8. Chronic kidney disease. 9[place] [address] CONSULTATION Name: VIKRAM ELIAS Room: [facility] IN [place].#: [id number] Admission: 10/12/21 Attend Phys: Fabiola Tomlinson MD Discharge: Date of : 50 Report #: [id number] Recommend no further cardiac evaluation at this time. <ELECTRONICALLY SIGNED> By: Ortiz Avila MD, FACC 10/13/21 1628 0947 [id number] Avila MD, FACC /nt
[2021-10-14] VITALS: BP 116/59; BP 16/59
[2021-10-14 04:00] VITALS: BP 103/70
[2021-10-14 08:00] VITALS: BP 124/67
[2021-10-14 12:02] VITALS: BP 126/60
[2021-10-14 16:00] VITALS: BP 119/62
[2021-10-14 20:15] VITALS: BP 147/73
[2021-10-15] VITALS: BP 109/49
[2021-10-15 04:00] VITALS: BP 123/52
[2021-10-15 08:00] VITALS: BP 142/76
[2021-10-15 12:00] VITALS: BP 103/48
[2021-10-15 16:00] VITALS: BP 124/64
[2021-10-15 20:00] VITALS: BP 139/67
[2021-10-16] VITALS: BP 128/56
[2021-10-16 04:00] VITALS: BP 150/72
[2021-10-16 04:58] LABS: HEMATOCRIT 27.2 % (37.0-47.0); HEMOGLOBIN 9.1 gm/dL (12.0-15.0); MCH 30.1 pg (26.0-34.0); MCHC 33.3 g/dL (28.0-37.0); MCV 90.3 fL (80.0-100.0); RBC 3.01 mil/uL (4.20-5.00); RDW-CV 13.6 % (10.5-14.5); WBC 8.3 thou/uL (4.0-11.0)
[2021-10-16 05:16] LABS: CALCIUM 8.2 mg/dL (8.5-10.1); CREATININE 1.7 mg/dL (0.6-1.3); MAGNESIUM 1.7 mg/dL (1.8-2.4)
[2021-10-16 08:00] VITALS: BP 138/73
[2021-10-16 12:14] VITALS: BP 151/78
[2021-10-16 16:49] VITALS: BP 143/84
[2021-10-16 19:51] VITALS: BP 151/67
[2021-10-17 07:02] LABS: HEMATOCRIT 28.1 % (37.0-47.0); HEMOGLOBIN 9.3 gm/dL (12.0-15.0); MCH 29.7 pg (26.0-34.0); MCHC 33.1 g/dL (28.0-37.0); MCV 89.7 fL (80.0-100.0); MPV 11.8 fl. (7.2-11.1); RBC 3.13 mil/uL (4.20-5.00); RDW-CV 13.4 % (10.5-14.5); WBC 8.9 thou/uL (4.0-11.0)
[2021-10-17 07:07] LABS: CALCIUM 8.4 mg/dL (8.5-10.1); CREATININE 1.5 mg/dL (0.6-1.3); POTASSIUM 4.3 mmol/L (3.5-5.1)
[2021-10-17 09:00] VITALS: BP 153/70
[2021-10-17 16:09] VITALS: BP 137/62
[2021-10-17 20:00] VITALS: BP 132/70
[2021-10-18] VITALS: BP 123/50
[2021-10-18 09:00] VITALS: BP 142/54
[2021-10-18 12:23] VITALS: BP 133/56
[2021-10-18 20:00] VITALS: BP 142/66
[2021-10-19] VITALS: BP 125/49
[2021-10-19 08:00] VITALS: BP 149/59
[2021-10-19 16:18] VITALS: BP 149/59
== END 2021-10-19 15:30 | disposition home health service (06) | DRG 690 ==
LOC: M.ERS 12:20 → M.TBA-ER 15:20 → M.2W 15:20
PROVIDERS: Physician Assistant; ADMIT Internal Medicine; ATTEND Internal Medicine
PROC: 05HC33Z Insertion of Infusion Device into Left Basilic Vein, Percutaneous Approach (ICD-10-PCS; principal; 2021-10-19)
DX: N30.00 Acute cystitis without hematuria (principal); E44.1 Mild protein-calorie malnutrition; I12.9 Hypertensive chronic kidney disease with stage 1 through stage 4 chronic kidney disease, or unspecified chronic kidney disease; N18.30 Chronic kidney disease, stage 3 unspecified; E11.21 Type 2 diabetes mellitus with diabetic nephropathy; Z88.8 Allergy status to other drugs, medicaments and biological substances; B96.89 Other specified bacterial agents as the cause of diseases classified elsewhere; E11.65 Type 2 diabetes mellitus with hyperglycemia; K21.9 Gastro-esophageal reflux disease without esophagitis; F32.A Depression, unspecified; B96.20 Unspecified Escherichia coli [E. coli] as the cause of diseases classified elsewhere; W18.39XA Other fall on same level, initial encounter; Y93.89 Activity, other specified; Y92.89 Other specified places as the place of occurrence of the external cause; Y99.8 Other external cause status; Z68.31 Body mass index [BMI] 31.0-31.9, adult; Z20.822 Contact with and (suspected) exposure to COVID-19; I48.91 Unspecified atrial fibrillation; Z86.73 Personal history of transient ischemic attack (TIA), and cerebral infarction without residual deficits; D64.89 Other specified anemias

== ENCOUNTER 2021-10-29 17:43 | Inpatient (IN) | payer MEDICARE, BC ==
[~2021-10-29] VITALS: Ht 170.2 cm; Wt 88.5 kg
--- NOTE | ~2021-10-29 | EMS ---
[facility] [address] [facility] [id number] [facility] Patient Care Report Name: VIKRAM ELIAS Room: [address] IN [facility]#: [id number] Admission: 10/29/21 Attend Phys: Filemon Gonzales MD Discharge: Date of : 50 Report #: [id number] THIS REPORT FOR: //name// Report Transmitted: 10/29/2021 20:28 EMS Care Summary [facility] Incident [id number] @ 10/29/2021 16:55 Incident Location [address] [place] [address] Patient VIKRAM ELIAS Female, 71 Years 1950 Patient Address [address] [place] [address] Patient History Diabetes,Atrial Fibrillation, Patient Allergies No known allergies, Patient Medications Unknown, Chief Complaint General weakness Disposition Transported No Lights/[place] Dispatch Reason Sick Person Transported To [facility] Narrative Dispatched to a residence for 71y/o female sick. Upon arrival pt. was sitting in a wheelchair, A&Ox4. Pt. c/o general weakness and diarrhea for the past 2 weeks. Pt. also c/o lower right ABD pain, with no rebound tenderness, distension, or rigidity. Pt. had bandage on left upper arm from having a PICC [facility] [address] [place] [id number] EMS Patient Care Report Name: VIKRAM ELIAS Room: [address] IN .R.#: [id number] Admission: 10/29/21 Attend Phys: Filemon Gonzales MD Discharge: Date of : 50 Report #: [id number] removed. VS were stable with no changes during transport. Pt. was transported to [place] for emergency services. Initial Vitals @17:05P: 96,R: 18,BP: 129/71,Pain: 2/10,GCS: 15,Glucose: 246,SpO2: 97,Revised Trauma: 12, @17:20P: 98,R: 18,BP: 144/74,GCS: 15,SpO2: 98,Revised Trauma: 12, @17:35P: 96,R: 18,BP: 137/75,GCS: 15,SpO2: 99,Revised Trauma: 12, Impression Generalized Weakness Timeline 16:54,Call Received 16:55,Dispatched 16:57,En Route 17:00,Initial Responder On Scene 17:00,On Scene 17:02,At Patient 17:05,BP: 129/71 M,PULSE: 96,RR: 18 R,SPO2: 97 Ox,ETCO2: ,B,PAIN: 2,GCS: 15, 17:17,Depart Scene 17:20,BP: 144/74 M,PULSE: 98,RR: 18 R,SPO2: 98 Ox,ETCO2: ,BG: ,PAIN: ,GCS: 15, 17:35,BP: 137/75 M,PULSE: 96,RR: 18 R,SPO2: 99 Ox,ETCO2: ,BG: ,PAIN: ,GCS: 15, 17:40,At Destination 17:42,Transfer Patient 17:56,Call Closed 18:10,In District Disclaimer v1.1 Copyright 2021 [employer] This EMS Care Summary contains data elements from the applicable legal record (which may be displayed differently). It is designed to provide pertinent information for the following purposes: continuity of care, clinical quality, and state data reporting. The complete legal record is available to ED staff and administrators of the receiving hospital in [employer]'s Patient Tracker. All data is provided "as is."
[2021-10-29 17:45] VITALS: BP 156/80
[2021-10-29 18:29] LABS: WBC 11.4 thou/uL (4.0-11.0)
[2021-10-29 18:30] LABS: HEMATOCRIT 34.7 % (37.0-47.0); HEMOGLOBIN 10.9 gm/dL (12.0-15.0); MCH 28.8 pg (26.0-34.0); MCHC 31.4 g/dL (28.0-37.0); MCV 91.7 fL (80.0-100.0); MPV 11.7 fl. (7.2-11.1); RBC 3.78 mil/uL (4.20-5.00)
[2021-10-29 20:34] LABS: CALCIUM 8.3 mg/dL (8.5-10.1); POTASSIUM 4.7 mmol/L (3.5-5.1)
[2021-10-29 20:39] LABS: ALBUMIN 2.6 g/dL (3.4-5.0); TOTAL BILIRUBIN 0.3 mg/dL (<0.1-1.0); TOTAL PROTEIN 7.3 g/dL (6.4-8.2)
[2021-10-29 22:45] VITALS: BP 152/65
[2021-10-30 00:18] LABS: URINE CLARITY TURBID; URINE COLOR STRAW; URINE SPECIFIC GRAVITY > 1.030 (1.005-1.030)
[2021-10-30 00:19] LABS: URINE GLUCOSE-RANDOM ND (Negative); URINE PROTEIN ND (Negative)
[2021-10-30 00:22] LABS: ACETEST (KETONE CONFIRMATORY) Negative (Negative); ICTOTEST (BILI CONFIRMATORY) Negative (Negative); URINE BILIRUBIN ND (Negative); URINE BLOOD ND (Negative); URINE KETONES ND (Negative); URINE NITRITE ND (Negative); URINE REDUCING SUBSTANCE NEGATIVE (Negative); URINE UROBILINOGEN ND E.U./dl (0.2-1.0)
[2021-10-30 00:23] LABS: CASTS None Seen /LPF (None Seen); CRYSTALS None Seen /LPF (None Seen); MUCUS 0-3 Light strn/LPF (None Seen); SQUAMOUS 0-3 Few /LPF (0-3); URINE LEUKOCYTES ND (Negative); URINE RBC 3-10 Few /HPF (0-2); URINE WBC >25 Many /HPF (0-5)
[2021-10-30 02:45] VITALS: BP 141/67
[2021-10-30 04:13] LABS: ABSOLUTE BASOPHILS 0.1 thou/uL (0.0-0.2); ABSOLUTE EOSINOPHILS 0.1 thou/uL (0.0-0.7); ABSOLUTE LYMPHOCYTES 2.3 thou/uL (0.8-5.3); ABSOLUTE MONOCYTES 1.2 thou/uL (0.0-1.2); ABSOLUTE NEUTROPHILS 6.9 thou/uL (1.6-8.1); BASOPHILS 0.5 %; EOSINOPHILS 1.3 %; HEMATOCRIT 28.9 % (37.0-47.0); HEMOGLOBIN 9.2 gm/dL (12.0-15.0); LYMPHOCYTES 21.7 %; MCH 29.3 pg (26.0-34.0); MCHC 31.9 g/dL (28.0-37.0); MCV 91.9 fL (80.0-100.0); MPV 11.5 fl. (7.2-11.1); NUCLEATED RBCS 0 /100WBC; PLATELET COUNT* 237 thou/uL (150-400); POLYS 65.5 %; RBC 3.15 mil/uL (4.20-5.00); RDW-CV 13.5 % (10.5-14.5); WBC 10.5 thou/uL (4.0-11.0)
[2021-10-30 04:17] LABS: CALCIUM 8.2 mg/dL (8.5-10.1); CREATININE 1.7 mg/dL (0.6-1.3); POTASSIUM 4.1 mmol/L (3.5-5.1)
[2021-10-30 06:45] VITALS: BP 157/79
[2021-10-30 10:49] VITALS: BP 168/78
--- NOTE | 2021-10-30 11:16 | EKG ---
[place] [address] ELECTROCARDIOGRAM REPORT Name: VIKRAM ELIAS Room: [place] [address] ADM IN [facility]#: [id number] Admission: 10/29/21 Attend Phys: Filemon Gonzales, Discharge: Date of : 50 Date of Service: 10/29/21 1751 Report #: [id number] THIS REPORT FOR: //name// [facility] ED Test Date: 2021-10-29 Test Time: 17:51:49 Pat Name: VIKRAM ELIAS Department: Room: [facility] Gender: F Tonguer: AP : 1950 Requested By: Jamal Tovar Order Number: [id number] MD: Corey Aranda Measurements Intervals [place] Rate: 94 P: 46 [place]: 170 QRS: -24 QRSD: 99 T: 79 QT: 341 QTc: 427 Interpretive Statements Sinus rhythm with occasional PACs Borderline left axis deviation Low voltage, precordial leads Compared to ECG 10/13/2021 04:39:43 Low QRS voltage now present Sinus rhythm persists Atrial premature complex(es) persist Electronically Signed On 10-30-2021 11:16:26 LPN by Corey Aranda [email or web address] <ELECTRONICALLY SIGNED> By: Corey Aranda MD, [facility] 10/30/21 [id number] Corey Aranda MD, [facility] /EPI
[2021-10-30 14:50] VITALS: BP 140/84
[2021-10-30 18:37] VITALS: BP 140/84
[2021-10-30 20:30] VITALS: BP 167/81
[2021-10-31] VITALS: BP 166/81
[2021-10-31 04:00] VITALS: BP 108/72
[2021-10-31 08:00] VITALS: BP 131/59
[2021-10-31 08:37] LABS: CALCIUM 8.3 mg/dL (8.5-10.1); CREATININE 1.2 mg/dL (0.6-1.3); POTASSIUM 3.7 mmol/L (3.5-5.1)
[2021-10-31 12:07] VITALS: BP 134/76
[2021-10-31 16:13] VITALS: BP 146/67
[2021-10-31 20:00] VITALS: BP 159/85
[2021-11-01 00:12] VITALS: BP 146/62
[2021-11-01 04:47] VITALS: BP 167/79
[2021-11-01 05:54] LABS: ABSOLUTE BASOPHILS 0.1 thou/uL (0.0-0.2); ABSOLUTE EOSINOPHILS 0.2 thou/uL (0.0-0.7); ABSOLUTE MONOCYTES 1.1 thou/uL (0.0-1.2); ABSOLUTE NEUTROPHILS 8.5 thou/uL (1.6-8.1); BASOPHILS 0.9 %; EOSINOPHILS 2.1 %; HEMATOCRIT 28.7 % (37.0-47.0); HEMOGLOBIN 9.2 gm/dL (12.0-15.0); LYMPHOCYTES 16.7 %; MCH 28.3 pg (26.0-34.0); MCHC 32.1 g/dL (28.0-37.0); MCV 88.2 fL (80.0-100.0); MONOCYTES 9.4 %; NUCLEATED RBCS 0 /100WBC; PLATELET COUNT* 270 thou/uL (150-400); POLYS 70.9 %; RBC 3.26 mil/uL (4.20-5.00); RDW-CV 13.5 % (10.5-14.5)
[2021-11-01 06:11] LABS: ALBUMIN 2.1 g/dL (3.4-5.0); CALCIUM 8.2 mg/dL (8.5-10.1); CREATININE 1.3 mg/dL (0.6-1.3); POTASSIUM 3.8 mmol/L (3.5-5.1); TOTAL BILIRUBIN 0.4 mg/dL (<0.1-1.0)
[2021-11-01 08:55] VITALS: BP 167/79
[2021-11-01 12:31] VITALS: BP 134/61
[2021-11-01 16:28] VITALS: BP 142/46
[2021-11-01 22:00] VITALS: BP 142/78
[2021-11-02] VITALS: BP 140/66
[2021-11-02 07:46] VITALS: BP 158/85
[2021-11-02 13:09] LABS: ABSOLUTE BASOPHILS 0.1 thou/uL (0.0-0.2); ABSOLUTE EOSINOPHILS 0.3 thou/uL (0.0-0.7); ABSOLUTE LYMPHOCYTES 1.7 thou/uL (0.8-5.3); ABSOLUTE MONOCYTES 0.8 thou/uL (0.0-1.2); ABSOLUTE NEUTROPHILS 5.4 thou/uL (1.6-8.1); BASOPHILS 0.9 %; EOSINOPHILS 3.4 %; HEMATOCRIT 31.3 % (37.0-47.0); HEMOGLOBIN 10.2 gm/dL (12.0-15.0); LYMPHOCYTES 20.4 %; MCHC 32.7 g/dL (28.0-37.0); MCV 88.8 fL (80.0-100.0); MPV 10.2 fl. (7.2-11.1); NUCLEATED RBCS 0 /100WBC; PLATELET COUNT* 289 thou/uL (150-400); POLYS 65.3 %; RBC 3.52 mil/uL (4.20-5.00); RDW-CV 13.2 % (10.5-14.5); WBC 8.3 thou/uL (4.0-11.0)
[2021-11-02 13:27] LABS: ALBUMIN 2.2 g/dL (3.4-5.0); CALCIUM 8.5 mg/dL (8.5-10.1); CREATININE 1.4 mg/dL (0.6-1.3); POTASSIUM 3.7 mmol/L (3.5-5.1); TOTAL BILIRUBIN 0.3 mg/dL (<0.1-1.0); TOTAL PROTEIN 7.6 g/dL (6.4-8.2)
[2021-11-02 16:00] VITALS: BP 125/58
[2021-11-02 20:00] VITALS: BP 145/68
[2021-11-03 00:12] VITALS: BP 115/51
[2021-11-03 08:00] VITALS: BP 146/70
[2021-11-03 11:46] LABS: ABSOLUTE EOSINOPHILS 0.3 thou/uL (0.0-0.7); ABSOLUTE LYMPHOCYTES 1.8 thou/uL (0.8-5.3); ABSOLUTE MONOCYTES 0.8 thou/uL (0.0-1.2); ABSOLUTE NEUTROPHILS 4.4 thou/uL (1.6-8.1); BASOPHILS 0.5 %; EOSINOPHILS 3.6 %; HEMATOCRIT 30.5 % (37.0-47.0); HEMOGLOBIN 9.9 gm/dL (12.0-15.0); LYMPHOCYTES 24.8 %; MCH 28.7 pg (26.0-34.0); MCHC 32.5 g/dL (28.0-37.0); MCV 88.3 fL (80.0-100.0); MONOCYTES 10.8 %; MPV 10.3 fl. (7.2-11.1); NUCLEATED RBCS 0 /100WBC; PLATELET COUNT* 269 thou/uL (150-400); POLYS 60.3 %; RBC 3.46 mil/uL (4.20-5.00); RDW-CV 13.6 % (10.5-14.5); WBC 7.4 thou/uL (4.0-11.0)
[2021-11-03 12:02] LABS: PREALBUMIN 10.7 mg/dL (18.0-35.7)
[2021-11-03 12:05] LABS: ALBUMIN 2.3 g/dL (3.4-5.0); CALCIUM 8.3 mg/dL (8.5-10.1); CREATININE 1.5 mg/dL (0.6-1.3); TOTAL BILIRUBIN 0.3 mg/dL (<0.1-1.0)
[2021-11-03 16:00] VITALS: BP 126/53
[2021-11-03] MEDS ORDERED: VANCOCIN 125 M125 M1 PO (16:48)
[2021-11-03] MEDS ORDERED: LOVENOX40 MG/0.4 SUBQ (16:50)
[2021-11-03] MEDS ORDERED: MEROPENEM1 GM IV (16:51)
[2021-11-03] MEDS ORDERED: OXYCODONE HCL 55 MG PO (16:52)
[2021-11-03] MEDS ORDERED: MIRALAX119 GM PO (16:53)
[2021-11-03] MEDS ORDERED: HUMALOG100 UNIT/1 SUBQ (17:24)
== END 2021-11-03 18:22 | DRG 689 ==
LOC: M.ERS 17:43 → M.TBA-ER 18:49 → M.2W 10-30 18:40
PROVIDERS: Emergency Medicine; Physician Assistant; ADMIT Internal Medicine; ATTEND Internal Medicine
PROC: 05HY33Z Insertion of Infusion Device into Upper Vein, Percutaneous Approach (ICD-10-PCS; principal; 2021-10-30)
DX: N13.6 Pyonephrosis (principal); R65.11 Systemic inflammatory response syndrome (SIRS) of non-infectious origin with acute organ dysfunction; E43 Unspecified severe protein-calorie malnutrition; N17.9 Acute kidney failure, unspecified; Z20.822 Contact with and (suspected) exposure to COVID-19; F32.9 Major depressive disorder, single episode, unspecified; E78.5 Hyperlipidemia, unspecified; M19.90 Unspecified osteoarthritis, unspecified site; M10.9 Gout, unspecified; Z96.642 Presence of left artificial hip joint; K21.9 Gastro-esophageal reflux disease without esophagitis; F41.9 Anxiety disorder, unspecified; N18.9 Chronic kidney disease, unspecified; I12.9 Hypertensive chronic kidney disease with stage 1 through stage 4 chronic kidney disease, or unspecified chronic kidney disease; E11.22 Type 2 diabetes mellitus with diabetic chronic kidney disease; R53.81 Other malaise; B96.20 Unspecified Escherichia coli [E. coli] as the cause of diseases classified elsewhere; Z90.49 Acquired absence of other specified parts of digestive tract; Z98.49 Cataract extraction status, unspecified eye; Z88.6 Allergy status to analgesic agent; Z88.0 Allergy status to penicillin; Z88.8 Allergy status to other drugs, medicaments and biological substances

== ENCOUNTER 2021-11-03 15:06 | Inpatient (IN) | payer MEDICARE, BC ==
[~2021-11-03] VITALS: Ht 170.2 cm; Wt 85.3 kg
[2021-11-03] MEDS ORDERED: VANCOCIN 125 M125 M1 PO (16:48)
[2021-11-03] MEDS ORDERED: LOVENOX40 MG/0.4 SUBQ (16:50)
[2021-11-03] MEDS ORDERED: MEROPENEM1 GM IV (16:51)
[2021-11-03] MEDS ORDERED: OXYCODONE HCL 55 MG PO (16:52)
[2021-11-03] MEDS ORDERED: MIRALAX119 GM PO (16:53)
[2021-11-03] MEDS ORDERED: HUMALOG100 UNIT/1 SUBQ (17:24)
[2021-11-03 20:00] VITALS: BP 117/57
--- NOTE | 2021-11-03 23:44 | NUR ---
ASSUMED CARE AT 1930. ADMITTED TO ROOM 328 ON DAY SHIFT. PATIENT SLEEPY, BUT DOES AWAKE EASILY AND FOLLOWS COMMANDS. ASSESSMENT DONE, MED REC DONE. SL TO LT FOREARM, INFUSED IV ABX WELL. TAKES PILLS WHOLE ALL AT ONE TIME WITH WATER. HAD CHOCOLATE PUDDING, SPRITE AND SALTINES FOR HS SNACK. TURNS SIDE TO SIDE WITH MIN ASSIST. INCONTINENT OF BOWELS TWICE THUS FAR. STATES SHE GOT MIRILAX THIS AM, AND DID NOT WANT IT. CURRENTLY ALL BOWEL MEDS ARE PRN. POTTER DRAINING ANOOP URINE. BOTTOM PINK, NO OPEN AREAS NOTED. SKIN CARE DONE, MOISTURE BARRIER APPLIED. POSITIONED WITH WEDGES. ON ISOLATION FOR ESBL OF URINE. HOURLY ROUNDS CONTINUE. BED ALARM ON. CALL LITE IN REACH.
--- NOTE | 2021-11-04 03:35 | NUR ---
C/O FEELING HOT. ROOM TEMP ADJUSTED. ORAL TEMP 98.0. BLOOD SUGAR WAS 103. GIVEN 8 OZ OF REGULAR SODA. TOO EARLY FOR PAIN MEDS. READJUSTED, PATIENT REFUSED USE OF POSITIONING WEDGE. HOURLY ROUNDS CONTINUE. BED ALARM ON. CALL LITE IN REACH.
[2021-11-04 04:58] LABS: HEMATOCRIT 28.4 % (37.0-47.0); HEMOGLOBIN 9.3 gm/dL (12.0-15.0); MCH 28.9 pg (26.0-34.0); MCHC 32.7 g/dL (28.0-37.0); MCV 88.5 fL (80.0-100.0); MPV 10.8 fl. (7.2-11.1); RBC 3.2 mil/uL (4.20-5.00); RDW-CV 13.3 % (10.5-14.5); WBC 8.9 thou/uL (4.0-11.0)
[2021-11-04 05:23] LABS: CALCIUM 8.1 mg/dL (8.5-10.1); CREATININE 1.5 mg/dL (0.6-1.3); POTASSIUM 3.7 mmol/L (3.5-5.1)
--- NOTE | 2021-11-04 05:43 | NUR ---
RETURNED TO SLEEP AROUND 0340, SNORING RESPS HEARD. NO FURTHER C/O PAIN OF THIS WRITING. POTTER DRAINS ANOOP URINE. ASSISTED WITH TURNS. HOURLY ROUNDS CONTINUE. BED ALARM ON. CALL LITE IN REACH.
--- NOTE | 2021-11-04 17:54 | NUR ---
PT WORKED WITH THERAPIES. UP WITH GAIT BELT AND MAX ASSIST X2. POTTER TO DD. DENIES PAIN. CALL LIGHT IN REACH. FALL PRECAUTIONS IN PLACE.
[2021-11-04 19:00] VITALS: BP 100/45
--- NOTE | 2021-11-04 21:00 | NUR ---
RESTING QUIETLY IN BED AND WATCHING THE winter ON TV. CALL LIGHT WITHIN REACH. OPTTER TO DEPENDENT DRAINAGE WITH CLEAR/ANOOP URINE.
--- NOTE | 2021-11-05 05:14 | NUR ---
PATIENT IN NEED OF IV ACCESS. NURSE EXTRUSION FORMER MADE 2 ATTEMPTS TO TRY TO START A NEW IV WITHOUT SUCCESS. BRANCH ACCOUNT EXECUTIVE DR. PAK INFORMED THAT PATIENT DID NOT RECEIVE IV ANTIBIOTIC. ASSISTED WITH REPOSITIONING. HOURLY ROUNDING IN PROGRESS.
[2021-11-05 08:00] VITALS: BP 110/49
--- NOTE | 2021-11-05 18:08 | NUR ---
ALERT AND ORIENTED X4. TRANSFERS WITH STAND UP LIFT AND 2 ASSIST. DENIES NEED FOR PAIN MEDICATION. REPOSITIONED EVERY 2 HOURS. POTTER CATHETER PATENT WITH CLEAR YELLOW URINE. CONTINENT OF BOWEL AND BLADDER. TAKES PILLS WITHOUT DIFFICULTY. CONTINUES ON IV AND ORAL ANTIBIODICS WITH NO ADVERSE REACTIONS. USES CALL LIGHT FOR ASSIST. FALL PRECATIONS IN PLACE.
[2021-11-05 20:03] VITALS: BP 137/63
--- NOTE | 2021-11-06 06:08 | NUR ---
ASSUMED CARES AT 1920. ALERT AND ORIENTED. PLEASANT. ISOLATION FOR ESBL. POTTER CATHETER DD YELLOW URINE. SALINE LOCK TO LEFT HAND. TRAMADOL GIVEN FOR HIP PAIN. USED BEDPAN FOR BM. HS SNACK GIVEN. REPOSITIONED OVERNIGHT. SLEPT SOME OFF AND ON. CALL LIGHT IN REACH AND BED ALARM ON.
[2021-11-06 07:35] VITALS: BP 135/50
--- NOTE | 2021-11-06 11:09 | NUR ---
Nutrition: Pt admitted to ARU with debility. H/o DM, CHF, DJD. She is eating well. Albumin 2.3, prealb 11.7. CHO controlled diet. Wt is 188#, but per [employer], usual wt is 210# - possible 10# loss in one month. Pt busy with staff on two attempted visits. Spoke with her RN - agreed to Jillian mariee to provide adequate nutrition and cease rapis wt loss. Consider mild risk at this time. Will follow weekly.
--- NOTE | 2021-11-06 17:13 | NUR ---
PT WORKED WITH THERAPIES. UP WITH SIT TO STAND. CONTACT PRECAUTIONS IN PLACE FOR ESBL. POTTER TO DD. PRN PAIN MEDICATION GIVEN PER PT REQUEST. CALL LIGHT IN REACH. FALL PRECAUTIONS IN PLACE.
[2021-11-06 19:00] VITALS: BP 115/49
[2021-11-07 07:50] VITALS: BP 127/58
--- NOTE | 2021-11-07 10:33 | NUR ---
INITIAL ASSESSMENT: PATIENT WAS ADMITTED TO THE [facility] ON 11/03/21 WITH A DIAGNOSIS OF DEBILITY. PT IS KNOWN TO THIS CM FROM PREVIOUS ACUTE AND IN ARU ADMISSIONS. PRIOR TO ADMIT PT RESIDED AT HOME AND A FRIEND AND THE FRIENDS SPOUSE LIVED WITH HER AND ASSISTED HER WITH CARES NEEDED. PT USED A WHEELCHAIR FOR MOBILITY, BUT USED THE WALKER TO ASSIST WITH TRANSFERS. PT HAS RECENT HH HX WITH [facility], AND [facility] AT HOME. PT HAD RECENT D/C FROM SNF AT [facility], BUT ALSO HAS A PAST HX OF SNF AT [facility]. CM RE-ORIENTED THE PT TO THE IN ACUTE REHAB UNIT AND PROCESSES, RESIDENTS RIGHTS INFO, TEAM CONFRENCE, AND TO THE ROLE OF CM. CM WILL REMAIN AVAILABLE TO ASSIST AND FOLLOW NEEDED.
--- NOTE | 2021-11-07 16:52 | NUR ---
PATIENT COMPLETED THERAPIES THIS SHIFT ORDERED. UP WITH SIT TO STAND. PATIENT IN RECLINER MOST OF SHIFT. POTTER DRAINING YELLOW URINE. BM NOTED VIA BEDPAN THIS SHIFT. NO INSULIN REQUIRED FOR BREAKFAST OR LUNCH MEAL THIS SHIFT. PRN OXY IR GIVEN THIS AM PER REQUEST FOR LEG PAIN. AM LABS AND TEAM MEETING TOMORROW.
[2021-11-07 20:00] VITALS: BP 133/69
[2021-11-08 04:37] LABS: CALCIUM 8.4 mg/dL (8.5-10.1); CREATININE 1.4 mg/dL (0.6-1.3); POTASSIUM 4.6 mmol/L (3.5-5.1)
[2021-11-08 04:46] LABS: HEMOGLOBIN 8.3 gm/dL (12.0-15.0); MCH 28.7 pg (26.0-34.0); MCHC 32.1 g/dL (28.0-37.0); MCV 89.4 fL (80.0-100.0); MPV 10.9 fl. (7.2-11.1); RBC 2.91 mil/uL (4.20-5.00); RDW-CV 13.7 % (10.5-14.5); WBC 7.1 thou/uL (4.0-11.0)
[2021-11-08 07:50] VITALS: BP 152/88
--- NOTE | 2021-11-08 14:17 | NUR ---
PT HAS MILD COGNITIVE DEFICIT. BARRIERS INCLUDE, LLE WEAKNESS AND FATIGUE. PT HAS POTTER AND ABX FOR UTI. REHAB STAFF WILL RE TEAM NEXT WEEK. PT NOTIFIIED OF THIS.
--- NOTE | 2021-11-08 16:58 | NUR ---
PATIENT COMPLETED THERAPIES THIS SHIFT ORDERED. UP WITH SIT TO STAND. POTTER DRAINING YELLOW URINE, BM NOTED VIA BSC. PRN OXY IR GIVEN X 1 THIS AM. PATIENT COMPLAINED THAT MIDLINE SORE WHEN FLUSHING, [facility] ADMINISTRATIVE ASSISTANT NOTIFIED AND CAME TO ASSESS. NEW IV PLACED TO LEFT FA FOR SCHED ABX, WILL HAVE YANICK IV NURSE ASSESS WHEN BACK TOMORROW. MIDLINE WAS LEFT IN PLACE. TEAM MEETING TODAY, RETEAM.
[2021-11-08 20:00] VITALS: BP 150/75
--- NOTE | 2021-11-09 04:53 | NUR ---
ASSUMED PT CARE AT 1930. PT ALERT AND ORIENTED X4, POLITE AND COOPERATIVE WITH CARES. TRANSFERRED TO BED WITH SIT TO STAND. POTTER TO DD DRAINING YELLOW URINE. STOOL X1 PER BSC. BARRIER CREAM APPLIED. PRN OXY X1 FOR BACK PAIN. S/L TO LEFT HAND, IV ABX INFUSED WITHOUT DIFFICULTY. HS SNACK GIVEN. REPOSITIONED. CALL LIGHT IN REACH, BED ALARM ON FOR SAFETY. HOURLY ROUNDING IN PROGRESS, WILL CONTINUE TO MONITOR.
[2021-11-09 08:03] VITALS: BP 132/58
[2021-11-09 20:00] VITALS: BP 137/72
--- NOTE | 2021-11-10 05:21 | NUR ---
ASSUMED PT CARE AT 1930. PT ALERT AND ORIENTED X4, POLITE AND COOPERATIVE WITH CARES. POTTER TO DD DRAINING YELLOW URINE. STOOL X1 PER BEDPAN. BARRIER CREAM APPLIED. PRN OXY X1 FOR BACK PAIN. S/L TO LEFT HAND, IV ABX INFUSED WITHOUT DIFFICULTY. HS SNACK GIVEN. REPOSITIONED. CALL LIGHT IN REACH, BED ALARM ON FOR SAFETY. HOURLY ROUDNING IN PROGRESS, WILL CONTINUE TO MONITOR.
[2021-11-10 08:12] VITALS: BP 132/65
--- NOTE | 2021-11-10 10:25 | NUR ---
PLAN OF CARE: PLAN TO RE-TEAM AND HAVE THE PT REMAIN ON THE UNIT FOR ANOTHER WEEK TO CONTINUE THERAPIES. CM WILL REMAIN AVAILABLE TO ASSIST AND FOLLOW NEEDED.
[2021-11-10 20:12] VITALS: BP 123/70
--- NOTE | 2021-11-11 05:16 | NUR ---
ASSUMED PT CARE AT 1930. PT ALERT AND ORIENTED X4, POLITE AND COOPERATIVE WITH CARES. POTTER TO DD DRAINING YELLOW URINE. STOOL X1 PER BEDPAN. IV ABX INFUSED TO LEFT WRIST. CALL LIGHT IN REACH, BED ALARM ON FOR SAFETY.
[2021-11-11 07:50] VITALS: BP 114/51
--- NOTE | 2021-11-11 16:32 | NUR ---
PATIENT HAD NO THERAPIES THIS SHIFT. UP TO RECLINER THIS SHIFT WITH SIT TO STAND, BM PER BSC X 2. POTTER DRAINING LARGE AMOUNTS OF YELLOW URINE. MIDLINE WAS DC'D PER DR. JULIAN. ABX INFUSED TO LEFT FA WITHOUT DIFFICULTY. NO PRN PAIN MEDS REQUIRED THIS SHIFT. PATIENT ASSISTED WITH DRESSING THIS AM.
[2021-11-11 20:18] VITALS: BP 135/57
--- NOTE | 2021-11-11 20:30 | NUR ---
RESTING IN BED AND WATCHING TV. POTTER TO DEPENDENT DRAINAGE WITH CLEAR/YELLOW URINE. PAIN MEDICINE GIVEN FOR COMPLAINT OF BACK PAIN.
--- NOTE | 2021-11-12 05:06 | NUR ---
RESTED ON/OFF. NO FURTHER COMPLAINT OF PAIN.
[2021-11-12 07:40] VITALS: BP 127/64
--- NOTE | 2021-11-12 16:41 | NUR ---
PATIENT UP TO RECLINER WITH SIT TO STAND. PATIENT ASSISTED INTO WHEELCHAIR AND WHEELED AROUND NURSES STATION FOR APPROX AN HOUR. POTTER DRAINING LARGE AMOUNTS OF URINE. BM NOTED VIA BSC. NO COMPLAINTS OF PAIN.
[2021-11-12 20:00] VITALS: BP 150/71
--- NOTE | 2021-11-12 23:29 | NUR ---
ASSUMED CARE AT 1930. PATIENT RESTING IN BED. TURNS SELF. SALINE LOCK TO LT FOREARM/WRIST INTACT AND IVABX INFUSED WELL. IVABX DUE TO BE COMPLETE 11/13/21. POTTER DRAINING LT YELLOW URINE. PAIN MED AND SLEEPING PILL AT HS. WATCHING [employer]EREMON[employer] ON TV. ON ISOLATION FOR ESBL IN URINE. HAD TWO TUBS OF SHERBET FOR HS SNACK. HOURLY ROUNDS CONTINUE. BED ALARN ON. CALL LITE IN REACH.
--- NOTE | 2021-11-13 05:14 | NUR ---
APPEARS TO BE SLEEPING ON HOURLY ROUNDS. TURNS SELF. NO FURTHER C/O PAIN. POTTER DRAINS ANOOP URINE. HOURLT ROUNDS CONTINUE. BED ALARM ON. CALL LITE IN REACH.
[2021-11-13 07:43] VITALS: BP 134/70
--- NOTE | 2021-11-13 17:16 | NUR ---
AM ASSESSMENT AND VITAL SIGNS COMPLETED DOCUMENTED. PATIENT CONTINUES TO WORK WITH PT, OT AND ST. FC TO DEPENDENT DRAINAGE WITH CLEAR YELLOW URINE OUTPUT. PATIENT TRANSFERS WITH A SIT TO STAND LIFT. FALL PRECAUTIONS AND HOURLY ROUNDING CONTINUE.
[2021-11-13 21:00] VITALS: BP 161/70
--- NOTE | 2021-11-14 05:47 | NUR ---
ASSUMED CARE AT 1915. ALERT AND ORIENTED. PLEASANT. ISOLATION. POTTER CATHETER DD YELLOW URINE. USED BEDPAN FOR STOOL. SALINE LOCK LFA. OXY GIVEN FOR BACK PAIN. PT STAYED UP UNTIL AFTER 0200 DESPITE AMBIEN GIVEN. ATE SEVERAL HS SNACKS. CALL LIGHT IN REACH AND BED ALARM ON.
[2021-11-14 07:40] VITALS: BP 149/59
[2021-11-14 12:42] LABS: URINE BILIRUBIN NEGATIVE (Negative); URINE BLOOD 2+ (Negative); URINE CLARITY CLEAR; URINE COLOR YELLOW; URINE GLUCOSE-RANDOM NEGATIVE (Negative); URINE KETONES NEGATIVE (Negative); URINE NITRITE-REFLEX NEGATIVE (Negative); URINE PROTEIN 2+ (Negative); URINE SPECIFIC GRAVITY 1.025 (1.005-1.030); URINE UROBILINOGEN 0.2 E.U./dl (0.2-1.0)
[2021-11-14 12:46] LABS: URINE LEUKOCYTES-REFLEX 2+ (Negative)
[2021-11-14 12:51] LABS: CASTS None Seen /LPF (None Seen); SQUAMOUS NONE SEEN /LPF (0-3)
[2021-11-14 12:52] LABS: BACTERIA-REFLEX 1-9 Few /HPF (None Seen); CRYSTALS None Seen /LPF (None Seen); URINE WBC-REFLEX 6-15 Few /HPF (0-5); YEAST-REFLEX Present (None Seen)
--- NOTE | 2021-11-14 15:35 | NUR ---
CM SPOKE TO THE PT TO DISCUSS ANY QUESTIONS OR CONCERNS THAT SHE MAY HAVE FOR THIS WEEKS TEAM CONFRENCE MEETING. PT HAS NO QUESTIONS OR CONCERNS AT THIS TIME. CM AND PHYSICIAN WILL F/U WITH THE PT AFTER THIS WEEKS MEETING TO PROVIDE UPDATE AND DISCUSS PLAN. CM WILL REMAIN AVAILABLE TO ASSIST AND FOLLOW NEEDED.
--- NOTE | 2021-11-14 16:56 | NUR ---
PT WORKED WITH THERAPIES. UP WITH SIT TO STAND. POTTER TO KATEY. NEW UA OBTAINED. SEE RESULTS. CONTACT PRECAUTIONS FOR ESBL IN HER URINE. DENIES NEED FOR PAIN MEDICATION. CALL LIGHT IN REACH. FALL PRECAUTIONS IN PLACE.
[2021-11-14 20:16] VITALS: BP 137/67
[2021-11-15 05:47] LABS: HEMATOCRIT 26.4 % (37.0-47.0); HEMOGLOBIN 8.6 gm/dL (12.0-15.0); MCH 28.7 pg (26.0-34.0); MCHC 32.6 g/dL (28.0-37.0); MPV 11.6 fl. (7.2-11.1); RBC 3.01 mil/uL (4.20-5.00); RDW-CV 14.3 % (10.5-14.5); WBC 6.8 thou/uL (4.0-11.0)
[2021-11-15 06:14] LABS: CALCIUM 9.2 mg/dL (8.5-10.1); CREATININE 1.5 mg/dL (0.6-1.3)
[2021-11-15 08:03] VITALS: BP 156/73
--- NOTE | 2021-11-15 15:43 | NUR ---
TEAM CONFRENCE MEETING HELD TODAY. PLAN TO RE-TEAM AND HAVE THE PT REMAIN ON THE UNIT FOR ANOTHER WEEK TO CONTINUE THERAPIES. PT INFORMED AND IN AGREEMENT WITH THE PLAN. PT PROGRESSING WELL TOWARDS GOALS, BUT BARRIERS ARE ATTENTION, MEMORY, EXECUTIVE FUNCTIONING, LLE WEAKNESS, DECREASED BALANCE, TREMORS, FETIGUE, AND ANXIETY. CM WILL REMAIN AVAILABLE TO ASSIST AND FOLLOW NEEDED.
--- NOTE | 2021-11-15 17:02 | NUR ---
PT WORKED WITH THERAPIES. UP WITH SIT TO STAND. CONTACT PRECAUTIONS FOR ESBL OF THE URINE. DENIES NEED FOR PAIN MEDICATION. CALL LIGHT IN REACH. FALL PRECAUTIONS IN PLACE.
[2021-11-15 20:22] VITALS: BP 125/61
--- NOTE | 2021-11-16 05:13 | NUR ---
ASSUMED CARE AT 1920. ALERT AND ORIENTED. PLEASANT. TYLENOL GIVEN FOR BACK PAIN. POTTER CATHETER DD YELLOW URINE. [place]STATIN POWDER TO GROIN. SIT TO STAND LIFT UP TO BSC. BARRIER CREAM TO BOTTOM. PT REPOSITIONED IN BED WHEN AGREEABLE. CALL LIGHT IN REACH AND BED ALARM ON.
[2021-11-16 07:50] VITALS: BP 157/74
--- NOTE | 2021-11-16 17:37 | NUR ---
PATIENT COMPLETED THERAPIES THIS SHIFT ORDERED. UP WITH SIT TO STAND. POTTER CONTINUES TO DRAIN LARGE AMOUNTS OF URINE, BM NOTED VIA BSC X 2. PRN TYLENOL GIVEN THIS EVENING FOR GENERALIZED PAIN. DR. COLLINS MADE AWARE OF URINE CULTURE RESULTS, NO NEW ORDERS RECEIVED.
[2021-11-16 20:28] VITALS: BP 131/67
--- NOTE | 2021-11-17 05:17 | NUR ---
ASSUMED CARE AT 1930. PATIENT RESTED IN RECLINER UNTIL AROUND 0. UP WITH LIFT, ASSIST OF TWO. POTTER DRAINING ANOOP URINE. ISOLATION FOR ESBL, ALTHOUGH LAST URINE CLEAR FROM ESBL AND NOW HAS [place]. TYLENOL AT HS. HS SNACK OF SHERBET. TAKES PILLS WHOLE WITH WATER. BARRIER CREAM TO BOTTOM. ASSISTED WITH TURNS WHEN SHE ALLOWS. HOURLY ROUNDS CONTINUE. BED ALARM ON. CALL LITE IN REACH.
[2021-11-17 08:21] VITALS: BP 125/60
--- NOTE | 2021-11-17 16:36 | NUR ---
PATIENT COMPLETED THERAPIES THIS SHIFT ORDERED. UP WITH SIT TO STAND. CURRENTLY IN WHEELCHAIR. POTTER DRAINING YELLOW URINE, BM NOTED X 2 THIS SHIFT. PRN OXY IR GIVEN FOR HIP PAIN, HS FLEXERIL TO START TONIGHT.
[2021-11-17 20:10] VITALS: BP 139/61
[2021-11-18 08:00] VITALS: BP 108/53
--- NOTE | 2021-11-18 17:24 | NUR ---
ALERT AND ORIENTED X4 WITH PERIODS OF FORGETFULNESS. UP WITH 2 ASSIST AND SIT TO STAND LIFT TO BEDSIDE COMMODE. TAKES PILLS WITHOUT DIFFICULTY. HAS POTTER CATHETER PATENT WITH CLEAR YELLOW URINE. CONTINENT OF BOWEL. USES CALL LIGHT FOR ASSIST. FALL PRECAUTIONS IN PLACE.
[2021-11-18 20:15] VITALS: BP 127/66
[2021-11-19 08:00] VITALS: BP 103/52
--- NOTE | 2021-11-19 18:48 | NUR ---
ALERT AND ORIENTED X4 BUT FORGETFUL AT TIMES. UP WITH SIT TO STAND LIFT AND 2 ASSIST. CONTINENT OF BOWEL AND BLADDER. TAKES PILLS WITHOUT DIFFICULTY. DENIED NEED FOR PAIN MEDICATION TODAY. USES CALL LIGHT FOR ASSIST. FALL PRECAUTIONS IN PLACE.
--- NOTE | 2021-11-19 18:51 | NUR ---
HAS POTTER CATHETER PATENT WITH CLEAR YELLOW URINE. REMAINS ON CONTACT ISOLATION FOR ESBL IN URINE.
[2021-11-19 19:50] VITALS: BP 148/65
[2021-11-20 08:15] VITALS: BP 128/56
--- NOTE | 2021-11-20 16:34 | NUR ---
ALERT AND ORIENTED X4. UP WITH 1 ASSIST AND SIT TO STAND LIFT. USING PO PAIN MEDICATION TO HELP WITH PAIN. TAKES PILLS WITHOUT DIFFICULTY. HAS POTTER CATHETER PATENT WITH CLEAR YELLOW URINE. USES CALL LIGHT WITHIN REACH. FALL PRECAUTIONS IN PLACE.
[2021-11-20 19:00] VITALS: BP 129/59
--- NOTE | 2021-11-20 21:46 | NUR ---
ASSUMED CARE AT 1930. PATIENT RESTING IN BED. TURNS SELF. TAKES PILLS WHOLE WITH WATER. UP WITH SIT TO STAND LIFT. POTTER DRAINING ANOOP URINE. ON ISOLATION FOR ESBL. ROOM AIR. MEDICATED FOR PAIN AT HS. HOURLY ROUNDS CONTINUE. BED ALARM ON. CALL LITE IN REACH.
== END 2021-11-21 | disposition home health service (06) | DRG 948 ==
LOC: M.REH 15:06
PROVIDERS: ADMIT Physical Medicine & Rehabilitation; ATTEND Physical Medicine & Rehabilitation
DX: R53.81 Other malaise (principal); N13.6 Pyonephrosis; N17.9 Acute kidney failure, unspecified; F41.9 Anxiety disorder, unspecified; F32.9 Major depressive disorder, single episode, unspecified; E11.22 Type 2 diabetes mellitus with diabetic chronic kidney disease; N18.9 Chronic kidney disease, unspecified; D69.6 Thrombocytopenia, unspecified; E78.5 Hyperlipidemia, unspecified; M19.90 Unspecified osteoarthritis, unspecified site; Z88.6 Allergy status to analgesic agent; Z88.0 Allergy status to penicillin